=== PATIENT | female | born 1950 | race Caucasian/White ===

== ENCOUNTER 2018-10-03 00:40 | Inpatient (IN) | payer MEDICARE ==
[~2018-10-03] VITALS: Ht 175.3 cm; Wt 108.9 kg
[~2018-10-03 00:40] MED LIST: DULCOLAX5 MG PO; GLUCOPHAGE500 MG PO; LEVAQUIN500 MG PO; MILK OF MAGNESI30 ML PO; NICODERM C1 PATCH .2 TRANSDERM; PERCOCET 10/3251 TA1 PO; REMERON15 MG PO; ZANAFLEX4 MG PO; ZOLOFT50 MG PO
[2018-10-03 02:36] LABS: HEMATOCRIT 37.8 % (36.0-48.0); HEMOGLOBIN 12.5 g/dL (12-16); LYMPHOCYTES 13.8 % (15-50); MCH 28.4 pg (26.0-34.0); MCHC 33.1 g/dL (31.0-37.0); MCV 85.9 fL (80.0-100.0); MEAN PLATELET VOLUME 9.1 fL (7.4-10.4); NEUTROPHILS 80.2 % (40-80); PLATELET COUNT 360 10x3/uL (130-400); RDW 13.8 % (11.5-14.5); WBC 12.1 10x3/uL (4.8-10.8)
[2018-10-03 02:48] LABS: ALBUMIN 2.5 g/dL (3.4-5.0); ALKALINE PHOSPHATASE 79 U/L (46-116); ALT (SGPT) 16 U/L (10-68); BILIRUBIN - TOTAL 0.35 mg/dL (0.2-1.3); CALC OSMOLALITY 282 mosm/kg (275-300); CARBON DIOXIDE 28.9 mmol/L (21.0-32.0); CHLORIDE - SERUM 101 mmol/L (98-107); CREATININE - SERUM 0.7 mg/dL (0.6-1.3); POTASSIUM - SERUM 3.7 mmol/L (3.5-5.1); PROTEIN - SERUM 7.8 g/dL (6.4-8.2); SODIUM 140 mmol/L (136-145); UREA NITROGEN 6 mg/dL (7-18); eGFR NON AFRICAN AMERICAN 88 mL/min (90-120)
[2018-10-03 02:49] LABS: GLUCOSE 212 mg/dL (74-106)
[2018-10-03 02:59] LABS: APPEARANCE CLOUDY (CLEAR); BACTERIA MANY /hpf (NONE SEEN); BILIRUBIN NEGATIVE (NEGATIVE); COLOR YELLOW (YELLOW); EPITHELIAL CELLS NSEEN /hpf (0-5); GLUCOSE NEGATIVE (NEGATIVE); KETONE MODERATE mg/dL (NEGATIVE); NITRITE NEGATIVE (NEGATIVE); PROTEIN 1+ mg/dL (NEGATIVE); SPECIFIC GRAVITY 1.015 (1.005-1.020); UROBILINOGEN NORMAL (NORMAL); WHITE CELLS - URINE >50 /hpf (0-5)
[2018-10-03 04:00] VITALS: BP 135/66
--- NOTE | 2018-10-03 04:00 | NUR ---
RECEIVED PT FROM ER VIA STRETCHER. STAFF X5 TRANSFERRED PT TO BED. PT STATES SHE LIVES ALONE AT HOME AND IS W/C BOUND. ER STAFF REPORTS THAT PT WAS COVERED IN HORSE FECES FROM SEVERAL MINI HORSES IN THE HOUSE. PT DENIES TAKING ANY HOME MEDS. STATES THAT HER WOUNDS HAVE BEEN PRESENT FOR SEVERAL MONTHS AND THAT SHE HAS NOT SEEN A DR. DENIES HAVING PCP. ALERT AND ORIENTED X4. IRRITABLE, DEMANDING AND VERBALLY DISRUPTIVE. CURRENTLY NAUSEATED AND GAGGING. RECEIVED ZOFRAN AND PERCOCET IN ER. RATES PAIN 10 IN RT FOOT AND POSTERIOR THIGH/BUTTOCK AREA. VANCOMYCIN INFUSING IN LT FOREARM. PT SMELLS VERY FOUL. PARMAR CATH PATENT AND DRAINING MARLYS URINE. RT FOOT IS RED, SWOLLEN AND HAS SEROSANGUINOUS FLUID DRAINING FROM ALL TOES. WOUNDS NOTED TO BILAT POST THIGHS AND BUTTOCKS WITH PINK TINGED SCANT DRAINAGE. PT IS MORBIDLY OBESE. NO TELEMETRY AVAILABLE AT THIS TIME. PT IS NPO. V/S STABLE. RESP EVEN AND NONLABORED. REFUSES TO LET STAFF WRAP FOOT. SR ELEVATED X3. CL IN REACH.
[2018-10-03 04:31] VITALS: BP 135/66; BMI 35.5
--- NOTE | 2018-10-03 07:15 | NUR ---
INITIAL ROUNDING ON THE PATIENT, SHE IS SUPINE IN BED, LIGHTS OFF, AWAKE. SHE DENIES PAIN, NO SOB NOTED, PARMAR TO BSG. PATIENT IS UPSET BECAUSE SHE IS THIRSTY AND HUNGRY. PROVIDED THE PATIENT WITH LEMON SWABS AT THIS TIME. FOUL ODOR NOTED IN THE ROOM.
--- NOTE | 2018-10-03 07:55 | NUR ---
THE PATIENT WAS ASSESSED AT THIS TIME. SEVERAL WOUNDS NOTED, RIGHT FOOT, LOWER RIGHT LEG, BILATERAL BUTTOCKS, BILATERAL THIGHS, BACK IS RED IN COLOR, LEFT FOOT. WOUND CARE CONSULT HAS BEEN ORDERED. WOUNDS INCLUDE DARK, NECROTIC APPEARING SKIN, DARK RED/VIERA COLORED AREAS, STAGE 2 PRESSURE SORES (SEVERAL ON BUTTOCKS AND THIGHS), UNSTAGEABLE PRESSURE AREAS. PATIENT REFUSED TO BE REPOSITIONED AT THIS TIME. DURING THE EXPLANATION OF THE CARE PLAN AND ORDERS, SHE STATED "WHY, WHY, WHY..IT IS MY FU..ING TOE AND THEY ARE TAKING IT OFF" AWAITING FOR THE DOCTOR TO MAKE HIS ROUNDS.
[2018-10-03 08:50] VITALS: BP 128/84
[2018-10-03 09:59] LABS: ERYTHROCYTE SEDIMENTATION RATE 82 mm/hr (0-30)
--- NOTE | 2018-10-03 11:32 | NUR ---
CODE MUSCLE CALLED TO TRANSFER THE PATIENT TO THE STRETCHER FOR MRI. PATIENT INSTRUCTED ON THE MRI, AND SHE REPLIES "WHY, I AINT HAVING NO SURGERY, ITS MY TOE AND YOU ARENT TAKING IT"
--- NOTE | 2018-10-03 11:44 | NUR ---
Rehab Note- Acute Inpatient Rehab prescreen order received. The patient has [employer] insurance and will require a PreAuth prior to an inpatient acute rehab stay. Need OT ordered for PreAuth process- spoke with [facility]CI[facility] for order. Will begin PreAuth process. Thank you for this referral! Crystal Saab RN Clinical Liaison, [facility] Rehab
[2018-10-03 12:09] VITALS: BMI 35.4
--- NOTE | 2018-10-03 12:28 | NUR ---
NUTRITION F/U ATTEMPTED TO SPEAK WITH PT RE:DIABETIC DIET. NURSING AWAITING HELP FOR CODE MUSCLE FOR PT. NURSING REPORTS PT "VERY UNHAPPY AT THIS TIME". SUGGESTED RD RETURN AT MORE APPROPRIATE TIME. RD FOLLOWING
[2018-10-03 12:31] VITALS: Ht 175.3 cm; Wt 108.9 kg
--- NOTE | 2018-10-03 19:35 | NUR ---
RECEIVED PT. LYING IN BED SUPINE HOB ELEVATED 45 DEGREES ALERT AND ORIENTED X4. DENIES ANY NEEDS OR PAIN. NO FAMILY AT BEDSIDE NOTED. LEFT FOREARM SL NO REDNESS OR SWELLING, DRESSING C/D/I. CALL LIGHT WITHIN REACH, FALL PRECAUTIONS IN PLACE. WILL CONTINUE TO MONITOR
[2018-10-03 20:17] VITALS: BP 164/68
[2018-10-04 00:42] VITALS: BP 164/78
--- NOTE | 2018-10-04 01:53 | NUR ---
LYING IN BED SUPINE EYES CLOSED RESTING. APPROPRIATE RISE AND FALL OF CHEST. CALL LIGHT WITHIN REACH, FALL PRECAUTIONS IN PLACE. WILL CONTINUE TO MONITOR
--- NOTE | 2018-10-04 02:30 | NUR ---
PT RESTING QUIETLY, EYES CLOSED. NO DISTRESS NOTED. AGREE WITH SLASHER'S ASSESSMENT. CONTINUE WITH PLAN OF CARE.
--- NOTE | 2018-10-04 05:06 | NUR ---
REFUSED MORNING VITALS
--- NOTE | 2018-10-04 06:37 | NUR ---
LYING IN BED SUPINE EYES OPEN ALERT. DENIES ANY NEEDS OR PAIN. RR EVEN AND UNLABORED. CALL LIGHT AND WATER WITHIN REACH, FALL PRECAUTIONS IN PLACE.
--- NOTE | 2018-10-04 07:50 | NUR ---
ASSESSMENT COMPLETE. SL TO L FA. MULTIPLE WOUNDS NOTED TO RIGHT FOOT. PARMAR PATENT DRAINING YELLOW URINE. DENIES ANY NEEDS AT THIS TIME.
[2018-10-04 09:51] LABS: BASOPHILS 0.3 % (0-2); EOSINOPHILS 2.5 % (0-7); HEMATOCRIT 35.4 % (36.0-48.0); HEMOGLOBIN 11.5 g/dL (12-16); IMMATURE GRANULOCYTES 0.9 % (0-5); MCH 28.5 pg (26.0-34.0); MCHC 32.5 g/dL (31.0-37.0); MCV 87.8 fL (80.0-100.0); MEAN PLATELET VOLUME 9.6 fL (7.4-10.4); MONOCYTES 5.7 % (2-11); NEUTROPHILS 62.6 % (40-80); PLATELET COUNT 367 10x3/uL (130-400); RBC 4.03 10x6/uL (4.00-5.40); RDW 14.3 % (11.5-14.5); WBC 9.1 10x3/uL (4.8-10.8)
[2018-10-04 10:35] LABS: ALBUMIN 2.5 g/dL (3.4-5.0); ALKALINE PHOSPHATASE 67 U/L (46-116); ALT (SGPT) 16 U/L (10-68); BILIRUBIN - TOTAL 0.25 mg/dL (0.2-1.3); CALC OSMOLALITY 283 mosm/kg (275-300); CALCIUM 8.9 mg/dL (8.5-10.1); CARBON DIOXIDE 28.5 mmol/L (21.0-32.0); CHLORIDE - SERUM 101 mmol/L (98-107); CREATININE - SERUM 0.7 mg/dL (0.6-1.3); GLUCOSE 217 mg/dL (74-106); MAGNESIUM - SERUM 1.5 mg/dL (1.8-2.4); POTASSIUM - SERUM 3.4 mmol/L (3.5-5.1); PROTEIN - SERUM 7.4 g/dL (6.4-8.2); SODIUM 139 mmol/L (136-145); UREA NITROGEN 9 mg/dL (7-18); eGFR NON AFRICAN AMERICAN 88 mL/min (90-120)
--- NOTE | 2018-10-04 12:00 | NUR ---
WATCHING TV. DENIES ANY NEEDS AT THIS TIME.
--- NOTE | 2018-10-04 15:37 | NUR ---
NO CHANGES NOTED AT THIS TIME.
--- NOTE | 2018-10-04 18:29 | NUR ---
NO CHANGES NOTED AT THIS TIME.
[2018-10-04 18:55] VITALS: BP 160/78
--- NOTE | 2018-10-04 19:15 | NUR ---
PT NOTED SITTING UP ON THE SIDE OF HER BED FINISHING HER SUPPER. ALERT AND ORIENTED X 3. DENIES ACUTE DISCOMFORT AT THIS TIME. LEFT FOREARM SALINE LOCK NOTED. PARMAR CATH IS PATENT AND DRAINING TO A GRAVITY BAG. CONTACT PRECAUTIONS OBSERVED. NO NEEDS VOICED AT THIS TIME. SR'S ARE UP X 2 IN BED. CALL LIGHT AND BEDSIDE TABLE ARE WITHIN EASY REACH.
[2018-10-04 20:00] VITALS: BP 158/67
--- NOTE | 2018-10-04 22:17 | NUR ---
PT IS RESTING QUIETLY IN BED WITH EYES CLOSED. RESPS ARE EVEN AND UNLABORED. NO ACUTE DISTRESS NOTED.
[2018-10-05] VITALS: BP 148/64
--- NOTE | 2018-10-05 01:45 | NUR ---
PT RESTING IN BED WITH EYES CLOSED.
--- NOTE | 2018-10-05 02:05 | NUR ---
I AGREE WITH THE CONTROL ANALYST ASSESSMENT THIS SHIFT.
--- NOTE | 2018-10-05 04:32 | NUR ---
PT RESTING IN BED WITH EYES CLOSED. NO ACUTE DISTRESS NOTED.
--- NOTE | 2018-10-05 08:00 | NUR ---
ASSESSMENT COMPLETE. SL TO L FA WITH SWELLING AND TENDERNESS. SL REMOVED. CATHETER TIP. MULTIPLE WOUNDS NOTED TO RIGHT FOOT. CONTACT ISOLATION PRECAUTIONS IN USE. PARMAR PATENT DRAINING YELLOW URINE. DENIES ANY NEEDS AT THIS TIME.
[2018-10-05 08:58] LABS: BASOPHILS 0.4 % (0-2); EOSINOPHILS 4.8 % (0-7); HEMATOCRIT 38.5 % (36.0-48.0); HEMOGLOBIN 12.2 g/dL (12-16); IMMATURE GRANULOCYTES 0.9 % (0-5); LYMPHOCYTES 25.2 % (15-50); MCH 27.7 pg (26.0-34.0); MCHC 31.7 g/dL (31.0-37.0); MCV 87.3 fL (80.0-100.0); MEAN PLATELET VOLUME 9.7 fL (7.4-10.4); MONOCYTES 6.5 % (2-11); NEUTROPHILS 62.2 % (40-80); PLATELET COUNT 367 10x3/uL (130-400); RBC 4.41 10x6/uL (4.00-5.40); RDW 14.2 % (11.5-14.5); WBC 9.2 10x3/uL (4.8-10.8)
[2018-10-05 09:08] LABS: ALBUMIN 2.5 g/dL (3.4-5.0); ALKALINE PHOSPHATASE 68 U/L (46-116); ALT (SGPT) 20 U/L (10-68); BILIRUBIN - TOTAL 0.29 mg/dL (0.2-1.3); CALC OSMOLALITY 280 mosm/kg (275-300); CHLORIDE - SERUM 103 mmol/L (98-107); CREATININE - SERUM 0.7 mg/dL (0.6-1.3); GLUCOSE 197 mg/dL (74-106); MAGNESIUM - SERUM 1.5 mg/dL (1.8-2.4); POTASSIUM - SERUM 3.5 mmol/L (3.5-5.1); PROTEIN - SERUM 7.6 g/dL (6.4-8.2); SODIUM 139 mmol/L (136-145); UREA NITROGEN 7 mg/dL (7-18); eGFR NON AFRICAN AMERICAN 88 mL/min (90-120)
[2018-10-05 09:10] VITALS: BP 154/88
--- NOTE | 2018-10-05 09:38 | NUR ---
PERCOCET GIVEN FOR COMPLAINT OF PAIN.
--- NOTE | 2018-10-05 09:45 | NUR ---
SL TO L FA WITH SWELLING AND TENDERNESS NOTED. SL RESITED TO R FA WITH 22 GUAGE X 2 ATTEMPTS.
--- NOTE | 2018-10-05 14:00 | NUR ---
VISITING WITH COMPANY. DENIES ANY NEEDS AT THIS TIME.
[2018-10-05 19:35] VITALS: BP 137/66
[2018-10-05 20:23] VITALS: BP 133/62
--- NOTE | 2018-10-05 20:30 | NUR ---
DR TROTTER IN ROOM SPEAKING TO PT.
--- NOTE | 2018-10-05 22:37 | NUR ---
PT RESTING QUIETLY IN BED WITH EYES CLOSED. RESPS ARE EVEN AND UNLABORED. NO ACUTE DISTRESS NOTED.
[2018-10-06] VITALS: BP 170/57
--- NOTE | 2018-10-06 02:57 | NUR ---
I AGREE WITH THE BUSINESS REPRESENTATIVE ASSESSMENT THIS SHIFT.
[2018-10-06 05:51] VITALS: BP 168/75
--- NOTE | 2018-10-06 06:13 | NUR ---
PT RESTING QUIETLY IN BED WITH EYES CLOSED.
[2018-10-06 06:28] LABS: ALBUMIN 2.3 g/dL (3.4-5.0); ALKALINE PHOSPHATASE 57 U/L (46-116); ALT (SGPT) 22 U/L (10-68); BASOPHILS 0.5 % (0-2); BILIRUBIN - TOTAL 0.19 mg/dL (0.2-1.3); CALCIUM 9.1 mg/dL (8.5-10.1); CARBON DIOXIDE 30.4 mmol/L (21.0-32.0); CHLORIDE - SERUM 102 mmol/L (98-107); CREATININE - SERUM 0.7 mg/dL (0.6-1.3); EOSINOPHILS 4.1 % (0-7); GLUCOSE 186 mg/dL (74-106); HEMATOCRIT 34.4 % (36.0-48.0); HEMOGLOBIN 11.1 g/dL (12-16); IMMATURE GRANULOCYTES 0.6 % (0-5); LYMPHOCYTES 20.7 % (15-50); MAGNESIUM - SERUM 1.7 mg/dL (1.8-2.4); MCH 28.2 pg (26.0-34.0); MCHC 32.3 g/dL (31.0-37.0); MCV 87.5 fL (80.0-100.0); MEAN PLATELET VOLUME 9.3 fL (7.4-10.4); MONOCYTES 6.2 % (2-11); NEUTROPHILS 67.9 % (40-80); PLATELET COUNT 348 10x3/uL (130-400); PROTEIN - SERUM 6.9 g/dL (6.4-8.2); RBC 3.93 10x6/uL (4.00-5.40); RDW 14.4 % (11.5-14.5); SODIUM 138 mmol/L (136-145); WBC 8.9 10x3/uL (4.8-10.8); eGFR NON AFRICAN AMERICAN 88 mL/min (90-120)
[2018-10-06 06:29] LABS: CALC OSMOLALITY 279 mosm/kg (275-300); POTASSIUM - SERUM 4.1 mmol/L (3.5-5.1); UREA NITROGEN 9 mg/dL (7-18)
--- NOTE | 2018-10-06 08:37 | NUR ---
AWAKE AND ALERT. ORIENTED X3. NO C/O AT THIS TIME. LUNGS ARE CLEAR BILATERALLY, NO COUGH NOTED. SKIN IS INTACT WITHOUT REDNESS EXCEPT RIGHT FOOT WHICH IS VERY REDDENED AND SWOLLEN. PEDAL PULSE INTACT. SL TO RIGHT FOREARM PATENT WITHOUT REDNESS AT INSERTION SITE. PARMAR PATENT WITH CLEAR YELLOW URINE. CLAMPED AT THIS TIME FOR SPECIMEN COLLECTION. DENIES NEEDS. ATE ALL OF BREAKFAST.
[2018-10-06 08:44] VITALS: BP 147/82
--- NOTE | 2018-10-06 09:30 | NUR ---
REFUSED NICOTINE PATCH. ATE MOST OF BREAKFAST. DENIES NEEDS.
--- NOTE | 2018-10-06 11:00 | NUR ---
Rehab Note- The patient continues to have an acute work up, has a pending Infectious DIsease consult. Being followed closely by Ortho for possible toe amputation. Will continue to follow at this time. Thank you for this referral! Crystal Saab RN CLinical Liaison, [facility] Rehab
--- NOTE | 2018-10-06 12:00 | NUR ---
URINE COLLECTE AND SENT TO LAB. DENIES NEEDS.
--- NOTE | 2018-10-06 12:21 | MORECARE ---
CASE MANAGEMENT DISCHARGE SUMMARY PATIENT: TYLER TOVAR UNIT: [id number] ADM DATE: 10/03/18 AGE: 68 : 51 SEX: F ROOM/BED: D.1213 AUTHOR: GORAN FERMIN PHYSICIAN: REFERRING PHYSICIAN: CYNTHIA MARTINEZ MD DATE OF SERVICE: 10/06/18 Discharge Plan Patient Name: TYLER TOVAR [facility] [facility] 1950 Planned Disposition: Anticipated Discharge Date: Discharge Date: Expected LOS: Initial Reviewer: [email or web address] Initial Review Date: 10/06/2018 Generated: 10/06/18 1:21 pm DCPIA - Discharge Planning Initial Assessment Updated by [email or web address]: Yamilet Grossman on 10/06/18 12:17 pm * Is the patient Alert and Oriented? Yes * PCP NONE * [facility] * Preadmission Environment Home Alone * ADLs Partial Dependent * Partial ADLs (Assistance needed) Ambulation Bathing Dressing Toileting * Equipment Wheelchair * List name and contact numbers for known caregivers / representatives who currently or will assist patient after discharge: CHITO NATION, FRIEND, * Community resources currently utilized None * Additional services required to return to the preadmission environment? Yes * Can the patient safely return to the preadmission environment? No * Has this patient been hospitalized within the prior 30 days at any hospital? No Patient Name: TYLER TOVAR Page [id number] at 1221 All edits/amendments must be made on the electronic document DICTATION DATE: 10/06/18 1221 IT SOFTWARE ENGINEER: NINA 10/06/18 1221 RPT#: [id number] DC DATE: STATUS: ADM IN [facility] [address] [place] [address] END OF REPORT
--- NOTE | 2018-10-06 12:31 | MORECARE ---
CASE MANAGEMENT DISCHARGE SUMMARY PATIENT: TYLER TOVAR UNIT: [id number] ADM DATE: 10/03/18 AGE: 68 : 51 SEX: F ROOM/BED: D.1213 AUTHOR: JENYDOC PHYSICIAN: REFERRING PHYSICIAN: CYNTHIA MARTINEZ MD DATE OF SERVICE: 10/06/18 Discharge Plan Patient Name: TYLER TVOAR Facility: [facility]:[place] : 1950 Planned Disposition: Anticipated Discharge Date: Discharge Date: Expected LOS: Initial Reviewer: [email or web address] Initial Review Date: 10/06/2018 Generated: 10/06/18 1:31 pm Comments DCP- Discharge Planning Updated by [id number]: Yamilet Grossman on 10/06/18 11:[address] Patient Name: TYLER TOVAR Admission Status: ER Accout number: [id number] Admission Date: 10-03-2018 : 1950 Admission Diagnosis:TYPE 2 DIABETES MELLITUS WITH FOOT ULCER Attending: CYNTHIA BOBBY Current LOS: 3 Anticipated DC Date: Planned Disposition: Primary Insurance: [employer] PPO Discharge Planning Comments: CM MET WITH PATIENT ABOUT DC PLANNING/NEEDS. PATIENT IS UNSURE OF DC PLAN. LIVES HOME ALONE, NO FAMILY. HAS A FRIEND NAMED CHITO THAT DOES HER SHOPPING AND OTHER THINGS FOR HER. SHE IS UNABLE TO AMBULATE. USES A WHEELCHAIR AT HOME AND TRANSFERS HERSELF FROM WHEELCHAIR TO CHAIR. THE CHART STATES SHE WILL PROB HAVE SURGERY ON HER FOOT SATURDAY. SHE MAY NEED SNF OR REHAB. AT THIS TIME SHE MAY BE TO LOW FUNCTION FOR IPREHAB. CM WILL FOLLOW AND ASSIST NEEDED WITH DC PLANNING/NEEDS. HOME ENVIRONMENT MAY NOT BE SAFE, RN SAID IT IS EXTREMELY DIRTY. Magnetic Resonance Technologist: Yamilet Grossman DCPIA - Discharge Planning Initial Assessment Updated by [email or web address]: Yamilet Grossman on 10/06/18 12:17 pm * Is the patient Alert and Oriented? Yes * PCP NONE * [facility] * Preadmission Environment Home Alone * ADLs Partial Dependent * Partial ADLs (Assistance needed) Ambulation Bathing Dressing Toileting * Equipment Wheelchair * List name and contact numbers for known caregivers / representatives who currently or will assist patient after discharge: CHITO NATION, FRIEND, * Community resources currently utilized None * Additional services required to return to the preadmission environment? Yes * Can the patient safely return to the preadmission environment? No * Has this patient been hospitalized within the prior 30 days at any hospital? No Last DP export: 10/06/18 11:21 a Patient Name: TYLER TOVAR Page [phone] at 1231 All edits/amendments must be made on the electronic document DICTATION DATE: 10/06/18 1231 COPPING MACHINE OPERATOR: NINA 10/06/18 1231 RPT#: [id number] DC DATE: STATUS: ADM IN [facility] [address] [place] [address] END OF REPORT
--- NOTE | 2018-10-06 12:58 | NUR ---
OT NOTE: PERFORMED BED MOB WITH MAX ASSIST; STATIC SITTING WITH SET UP X 10 MIN; PERFORMED SIT TO STAND WITH WALKER WITH MOD ASSIST X 2 AND ABLE TO STAND WITH WALKER X APPROX 2-3 MIN. MAX ASSIST FOR UE DRESSING AND LE DRESSING. SET UP FOR GROOMING; MOD ASSIST FOR SIT TO SUPINE. PT VERY ANXIOUS REGARDING STANDING TASKS. APPARENTLY PTS PREVIOUS LIVING SITUATION WAS POOR. RADHA YOON, OTR/L
[2018-10-06 13:00] VITALS: BP 138/68
--- NOTE | 2018-10-06 15:46 | NUR ---
Old scars noted on buttocks and hips. Right and left posterior upper thighs have open areas that are red/peeling. Right foot is peeling with edema and redness - necrotic tissue is noted on top of foot. Bruising noted on plantar left foot and great toe. Recommended calmoseptine cream for perineal area and upper thighs. Will continue monitoring.
[2018-10-06 15:57] VITALS: BP 141/72
--- NOTE | 2018-10-06 16:58 | NUR ---
OT NOTE: PT COMPLETED BED MOB WITH MAX Linda. PT COMPLETED GROOMING WITH MOD A. PT COMPLETED UE AAROM. THANK YOU, GILES PACE
[2018-10-06 20:00] VITALS: BP 140/69
--- NOTE | 2018-10-06 21:04 | NUR ---
[facility] IN [facility]ED[facility]
[2018-10-07] VITALS: BP 181/68
--- NOTE | 2018-10-07 00:23 | NUR ---
PATIENT WAS UPSET THAT SHE WAS WOKEN UP FOR MIDNIGHT VITALS AND REQUESTED NOT TO BE WOKEN UP FOR 0400 VITALS
--- NOTE | 2018-10-07 04:08 | NUR ---
[facility]ED[facility]
[2018-10-07 07:27] LABS: BASOPHILS 0.5 % (0-2); EOSINOPHILS 4.2 % (0-7); HEMATOCRIT 33.7 % (36.0-48.0); IMMATURE GRANULOCYTES 0.4 % (0-5); LYMPHOCYTES 17.2 % (15-50); MCH 28.4 pg (26.0-34.0); MCHC 32.6 g/dL (31.0-37.0); MCV 87.1 fL (80.0-100.0); MEAN PLATELET VOLUME 9.8 fL (7.4-10.4); NEUTROPHILS 69.7 % (40-80); PLATELET COUNT 338 10x3/uL (130-400); RBC 3.87 10x6/uL (4.00-5.40); RDW 14.4 % (11.5-14.5); WBC 8.5 10x3/uL (4.8-10.8)
[2018-10-07 07:48] LABS: ALBUMIN 2.3 g/dL (3.4-5.0); ALKALINE PHOSPHATASE 60 U/L (46-116); ALT (SGPT) 23 U/L (10-68); CALC OSMOLALITY 279 mosm/kg (275-300); CALCIUM 8.8 mg/dL (8.5-10.1); CARBON DIOXIDE 27.8 mmol/L (21.0-32.0); CHLORIDE - SERUM 101 mmol/L (98-107); GLUCOSE 161 mg/dL (74-106); MAGNESIUM - SERUM 1.5 mg/dL (1.8-2.4); POTASSIUM - SERUM 3.5 mmol/L (3.5-5.1); SODIUM 140 mmol/L (136-145); UREA NITROGEN 8 mg/dL (7-18); eGFR NON AFRICAN AMERICAN > 90 mL/min (90-120)
[2018-10-07 07:50] LABS: CREATININE - SERUM 0.5 mg/dL (0.6-1.3)
--- NOTE | 2018-10-07 08:59 | NUR ---
PT REFUSED NICOTINE PATCH AT THIS TIME. PT LAYING IN BED, A/O X4, RESP EVEN AND NONLABORD ON RA. PARMAR DRAINING YELLOW URINE TO GRAVITY, EMPTIED 1500CC OF YELLOW URINE AT THIS TIME. RT FA IV INFUSING SL. PT DENIES ANY NEEDS AT THIS TIME. CALL LIGHT IN REACH,NAD NOTED, WILL CONTINUE TO MONITOR.
[2018-10-07 09:01] VITALS: BP 120/78
[2018-10-07 12:08] VITALS: BP 126/69
--- NOTE | 2018-10-07 14:54 | NUR ---
PT'S IV INFILTRATED, D/C IV WITH CATHETER TIP INTACT. PT NEEDS 20G IF FOR CTA, THIS NURSE DID NOT SEE A VEIN TO PLACED 20G. CALLED ANANDA GIFFORD VASCULAR NURSE AND SHE STATED TO CALL SOMEONE ELSE BECAUSE SHE IS GOING TO A MEETING. WILL CALL ICU OR ER TO SEE IF SOMEONE CAN COME START IV.
--- NOTE | 2018-10-07 17:16 | NUR ---
OT NOTE: PT COMPLETED BED MOB WITH MOD A. PT COMPLETED SIT TO STAND WITH MIN TO MOD A. PT COMPLETED BUE AROM AXS. THANK YOU, GILES PACE
--- NOTE | 2018-10-07 17:48 | NUR ---
OT NOTE: PERFORMED BED MOB WITH MOD/MAX ASSIST; UE GROOMING WITH SET UP. TOLERATED SITTING UP ON EDGE OF BED FOR EXT TIME WITHOUT ASSIST. SIT TO STAND WITH USE OF WALKER WITH MIN/MOD ASSIST; ABLE TO TAKE 2 LATERAL STEPS; PRACTICED SCOOTING UP AND OVER ON BED WITH MIN ASSIST FOR SIT TO SUPINE. REQUIRES EXT ENCOURAGEMENT DUE TO FEAR. RADHA YOON, OTR/L
--- NOTE | 2018-10-07 17:57 | NUR ---
CT HERE TO TAKE PT FOR CTA, INSIDE SALES AGENT FLUSHED IV AND STATED THAT PT WAS C/O IV HURTING WHEN BEING FLUSHED. D/C RT HAND IV WITH CATHETER TIP INTACT. WILL CALL ER TO SEE IF THEY CAN START IV.
--- NOTE | 2018-10-07 18:08 | NUR ---
NEW 20G IV STARTED TO RT FA BY ER NURSE. NOTIFIED CT.
--- NOTE | 2018-10-07 18:50 | NUR ---
AWAKE AND ALERT AND ANSWERING MY QUESTIONS ..DENIES PAIN OR NEEDS AT THIS TIME. FAMILY IS AT BEDSIDE BED LOW AND CALL LIGHT IS IN REACH. BED ALARM FUNCTIONING YELLOW GOWN IS ON AND SR X3. LCTA BOWEL SOUNDS X4. CVL TO RT SIDE WITH DRSG INTACT NO EDEMA NO REDNESS ...NOTED IV TO LEFT AC APPEARS ITS BEEN IN PLACE SINCE 09/30 I WILL REMOVE THIS SITE SOON.
--- NOTE | 2018-10-07 19:35 | NUR ---
CONTACT ISOLATION BEING OBSERVED. BED LOW AND CALL LIGHT IN PLACE PATIENT IS NPO FOR PROCEDURE. SR X2 PARMAR IS NOTED NO URINE AT THIS TIME. PT REFUSES TO TURN SO BOTTOM NOT SEEN AT THIS TIME SKIN WARM AND DRY AND LCTA RT FA SL WITH NO EDEMA NO REDNESS
--- NOTE | 2018-10-07 20:01 | NUR ---
PT MOVED BY [facility] FOR CTA
[2018-10-07 20:31] VITALS: BP 139/59
--- NOTE | 2018-10-07 20:47 | NUR ---
NOTIFIED EDUCATION REVIEWER THAT MONITOR HAD BEEN ORDERED 10/03...TOLD IT WOULD NOT BE APLIED
[2018-10-08] VITALS: BP 122/65
--- NOTE | 2018-10-08 08:41 | NUR ---
PT RESTING COMFORTABLY IN BED, EASILY AROUSES TO VOICE. PT REFUSED NICOTINE PATCH. PT A/O X4, RESP EVEN AND NONLABORED ON RA. RT FA IV SL. PT DENIES ANY NEEDS AT THIS TIME. CALL LIGHT IN REACH, NAD NOTED, WILL CONTINUE PLAN OF CARE.
[2018-10-08 09:08] LABS: BASOPHILS 0.3 % (0-2); HEMATOCRIT 34.1 % (36.0-48.0); HEMOGLOBIN 11.1 g/dL (12-16); IMMATURE GRANULOCYTES 0.5 % (0-5); LYMPHOCYTES 12.4 % (15-50); MCH 28.4 pg (26.0-34.0); MCHC 32.6 g/dL (31.0-37.0); MCV 87.2 fL (80.0-100.0); MEAN PLATELET VOLUME 9.5 fL (7.4-10.4); MONOCYTES 7.6 % (2-11); NEUTROPHILS 76.2 % (40-80); PLATELET COUNT 297 10x3/uL (130-400); RBC 3.91 10x6/uL (4.00-5.40); RDW 14.4 % (11.5-14.5); WBC 8.7 10x3/uL (4.8-10.8)
[2018-10-08 09:21] VITALS: BP 133/58
[2018-10-08 09:24] LABS: ALBUMIN 2.4 g/dL (3.4-5.0); ALKALINE PHOSPHATASE 59 U/L (46-116); BILIRUBIN - TOTAL 0.29 mg/dL (0.2-1.3); CALCIUM 8.7 mg/dL (8.5-10.1); CARBON DIOXIDE 29.7 mmol/L (21.0-32.0); CHLORIDE - SERUM 99 mmol/L (98-107); MAGNESIUM - SERUM 1.6 mg/dL (1.8-2.4); POTASSIUM - SERUM 3.7 mmol/L (3.5-5.1); PROTEIN - SERUM 7.2 g/dL (6.4-8.2); SODIUM 135 mmol/L (136-145); UREA NITROGEN 9 mg/dL (7-18)
[2018-10-08 09:25] LABS: ALT (SGPT) 31 U/L (10-68); CALC OSMOLALITY 276 mosm/kg (275-300); CREATININE - SERUM 0.7 mg/dL (0.6-1.3); GLUCOSE 251 mg/dL (74-106); eGFR NON AFRICAN AMERICAN 88 mL/min (90-120)
--- NOTE | 2018-10-08 09:27 | NUR ---
Diabetic diet with 100% intake of meals NPO past MN for surgery Will add Thong to help optimize wound healing Reviewed labs RD following
--- NOTE | 2018-10-08 09:41 | NUR ---
PER PA [place] INFECTION CONTROL, PT CAN COME OFF ISOLATION.
--- NOTE | 2018-10-08 09:52 | NUR ---
Rehab Note- Continue to follow at this time. Has a scheduled amputation of her toe on 10/09/18. Will submit clinicals to [facility] when medically stable. Crystal Saab RN Clinical Liaison, [facility] Rehab
[2018-10-08 13:59] VITALS: BP 142/56
--- NOTE | 2018-10-08 15:28 | NUR ---
OT NOTE: PT REFUSED THERAPY IN AM. PT WAS VERY AGITATED AND RUDE. INFORMED PT THAT WE WOULD ATTEMPT IN PM.. SHE STATED " DO NOT COME BACK; I WILL REFUSE THIS AFTERNOON; IM NOT MOVING !!!" RADHA YOON, OTR/L
[2018-10-08 17:03] VITALS: BP 150/65
--- NOTE | 2018-10-08 19:35 | NUR ---
AT REST IN BED SR X2 AND BED LOW CONSENTS HAVE BEEN SIGNED FOR AMPUTATION IN AM PT TO BE NPO FOLY WITH MARLYS URINE SL TO RT FORARM WNL CALL LIGHT IN PLACE AND DENIES NEEDS AT THIS TIME
[2018-10-08 22:35] VITALS: BP 172/80
--- NOTE | 2018-10-09 02:23 | NUR ---
DISCOVERED IV INFILTRATED...RESTARTED WITH 20 GAUGE TO LEFT FORARM TIMES ONE TRY
[2018-10-09 02:35] VITALS: BP 157/70
--- NOTE | 2018-10-09 03:38 | NUR ---
I AGREE WITH CHECKING CLERK ASSESSMENT
[2018-10-09 05:46] VITALS: BP 173/71
--- NOTE | 2018-10-09 08:00 | NUR ---
The patient is calm and awake, on assessment she says she has a h/a. She does c/o h/a and she requests a cold wash cloth, did apply. She also has some expiratory wheezes.
[2018-10-09 10:11] VITALS: BP 163/69
--- NOTE | 2018-10-09 11:37 | NUR ---
Did have the patient sign consents for surgery.
--- NOTE | 2018-10-09 13:13 | NUR ---
The surgery called and requested the patient be preop'd Did provide the patient her preop meds, see MAR.
--- NOTE | 2018-10-09 13:40 | NUR ---
The refresh technician here to take the patient to surgery, she is is glad to be going.
[2018-10-09 14:35] VITALS: BP 132/71
--- NOTE | 2018-10-09 15:35 | NUR ---
The patient is back from recovery. VSS. SHe requested soup and sandwich she has been NPO.
--- NOTE | 2018-10-09 16:30 | NUR ---
The patient requested to sit up on the side of the bed, did assist her. She did well, slow, but she needed minimal assist. She did mention that her trapeze bar is missing. It may be in surgery.
--- NOTE | 2018-10-09 17:30 | NUR ---
The patient got a tray with a sandwich and she requested cheese. Did put in an order.
[2018-10-09 17:42] VITALS: BP 136/71
[2018-10-09 18:09] LABS: AEROBE ID Final report (())
--- NOTE | 2018-10-09 19:50 | NUR ---
AWAKE AND ALERT TECH SEEING TO NEEDS LUNG SOUNDS DEMINISHED AT THIS TIME. BANDAGE IN PLACE OVER RT FOOT/TOES PULSE PAPABLE NO DRAINAGE THROUGH DRSG. IV TO LEFT ARM SL AT THIS TIME
[2018-10-09 20:00] VITALS: BP 136/62
[2018-10-10] VITALS: BP 117/63; BP 146/66
--- NOTE | 2018-10-10 02:57 | NUR ---
ASSESSED, PT IS AWAKE AND WATCHING TV. DRESSING TO FOOT IS DRY AND INTACT. RESPIRATIONS ARE EASY AND UNLABORED. NO DISTRESS NOTED.
[2018-10-10 04:00] VITALS: BP 150/64
[2018-10-10 06:50] LABS: BASOPHILS 0.4 % (0-2); EOSINOPHILS 4.6 % (0-7); HEMATOCRIT 34.5 % (36.0-48.0); HEMOGLOBIN 10.9 g/dL (12-16); IMMATURE GRANULOCYTES 0.4 % (0-5); LYMPHOCYTES 19.2 % (15-50); MCH 27.9 pg (26.0-34.0); MCHC 31.6 g/dL (31.0-37.0); MCV 88.2 fL (80.0-100.0); MEAN PLATELET VOLUME 9.7 fL (7.4-10.4); NEUTROPHILS 66.4 % (40-80); PLATELET COUNT 297 10x3/uL (130-400); RBC 3.91 10x6/uL (4.00-5.40); RDW 14.6 % (11.5-14.5); WBC 7.8 10x3/uL (4.8-10.8)
[2018-10-10 07:24] LABS: CALCIUM 8.6 mg/dL (8.5-10.1); CARBON DIOXIDE 30.3 mmol/L (21.0-32.0); CHLORIDE - SERUM 99 mmol/L (98-107); CREATININE - SERUM 0.7 mg/dL (0.6-1.3); POTASSIUM - SERUM 3.9 mmol/L (3.5-5.1); SODIUM 136 mmol/L (136-145); eGFR NON AFRICAN AMERICAN 88 mL/min (90-120)
[2018-10-10 07:31] LABS: GLUCOSE 192 mg/dL (74-106)
[2018-10-10 07:48] LABS: CALC OSMOLALITY 277 mosm/kg (275-300)
[2018-10-10 07:49] LABS: UREA NITROGEN 14 mg/dL (7-18)
--- NOTE | 2018-10-10 07:55 | NUR ---
ASSESSMENT COMPLETE. SL TO L FA. DRESSING TO RIGHT FOOT C/D/I. PARMAR PATENT DRAINING YELLOW URINE. DENIES ANY NEEDS AT THIS TIME.
[2018-10-10 08:00] VITALS: BP 179/67
--- NOTE | 2018-10-10 10:46 | NUR ---
Nutrition Consult/Follow Up: Consult received for ADA diet education. When RD knocked on the door, pt yelled "What?!" RD entered the room, introduced myself and explained why I was there. Pt stated that she was trying to take a nap. RD offered to leave written material with pt and she said yes. RD encouraged pt to contact RD with any nutritional questions/concerns. Diet: Regular PO Intake: 100% meal avg BM: 10/07/18 Labs reviewed - Glucose continues elevated; A1C 9.9 Meds noted including Humulin POD 1 Toe Amputation Will change diet to ADA to aid in glucose control. Will continue to honor food preferences. RD following.
--- NOTE | 2018-10-10 11:22 | NUR ---
PERCOCET GIVEN FOR COMPLAINT OF PAIN.
[2018-10-10 13:17] VITALS: BP 158/70
--- NOTE | 2018-10-10 14:04 | MORECARE ---
CASE MANAGEMENT DISCHARGE SUMMARY PATIENT: TYLER TOVAR UNIT: [id number] ADM DATE: 10/03/18 AGE: 68 : 51 SEX: F ROOM/BED: D.1213 AUTHOR: GORAN FERMIN PHYSICIAN: REFERRING PHYSICIAN: CYNTHIA MARTINEZ MD DATE OF SERVICE: 10/10/18 Discharge Plan Patient Name: TYLER TOVAR Facility: [facility]:[place] : 1950 Planned Disposition: Anticipated Discharge Date: Discharge Date: Expected LOS: Initial Reviewer: [email or web address] Initial Review Date: 10/06/2018 Generated: 10/10/18 3:04 pm Comments DCP- Discharge Planning Updated by [email or web address]: Yamilet Grossman on 10/10/18 12:[address] Patient Name: TYLER TOVAR Admission Status: ER Accout number: [id number] Admission Date: 10-03-2018 : 1950 Admission Diagnosis:TYPE 2 DIABETES MELLITUS WITH FOOT ULCER Attending: CYNTHIA BOBBY Current LOS: 7 Anticipated DC Date: Planned Disposition: Primary Insurance: [employer] CHOICE PPO MCR ADVANT Discharge Planning Comments: PATIENT WANTS [facility] WILL SUBMIT CLINICALS TO [facility] WHEN PATIENT IS MEDICALLY STABLE. Jewelry Repairer: Yamilet Grossman DCP- Discharge Planning Updated by [id number]: Yamilet Grossman on 10/06/18 11:[address] Patient Name: TYLER TOVAR Admission Status: ER Accout number: [id number] Admission Date: 10-03-2018 : 1950 Admission Diagnosis:TYPE 2 DIABETES MELLITUS WITH FOOT ULCER Attending: CYNTHIA BOBBY Current LOS: 3 Anticipated DC Date: Planned Disposition: Primary Insurance: [employer] PPO Discharge Planning Comments: CM MET WITH PATIENT ABOUT DC PLANNING/NEEDS. PATIENT IS UNSURE OF DC PLAN. LIVES HOME ALONE, NO FAMILY. HAS A FRIEND NAMED CHITO THAT DOES HER SHOPPING AND OTHER THINGS FOR HER. SHE IS UNABLE TO AMBULATE. USES A WHEELCHAIR AT HOME AND TRANSFERS HERSELF FROM WHEELCHAIR TO CHAIR. THE CHART STATES SHE WILL PROB HAVE SURGERY ON HER FOOT SATURDAY. SHE MAY NEED SNF OR REHAB. AT THIS TIME SHE MAY BE TO LOW FUNCTION FOR IPREHAB. CM WILL FOLLOW AND ASSIST NEEDED WITH DC PLANNING/NEEDS. HOME ENVIRONMENT MAY NOT BE SAFE, RN SAID IT IS EXTREMELY DIRTY. Jewelry Repairer: Yamilet Grossman DCPIA - Discharge Planning Initial Assessment Updated by [email or web address]: Yamilet Grossman on 10/06/18 12:17 pm * Is the patient Alert and Oriented? Yes * PCP NONE * [facility] * Preadmission Environment Home Alone * ADLs Partial Dependent * Partial ADLs (Assistance needed) Ambulation Bathing Dressing Toileting * Equipment Wheelchair * List name and contact numbers for known caregivers / representatives who currently or will assist patient after discharge: CHITO NATION, FRIEND, * Community resources currently utilized None * Additional services required to return to the preadmission environment? Yes * Can the patient safely return to the preadmission environment? No * Has this patient been hospitalized within the prior 30 days at any hospital? No Last DP export: 10/06/18 11:31 a Patient Name: TYLER TOVAR Page [phone] at 1404 All edits/amendments must be made on the electronic document DICTATION DATE: 10/10/18 1403 LEAD HOUSEKEEPER: NINA 10/10/18 1403 RPT#: [id number] DC DATE: STATUS: ADM IN [facility] [address] [place] [address] END OF REPORT
--- NOTE | 2018-10-10 15:00 | NUR ---
RESTING QUIETLY IN BED. DENIES ANY NEEDS AT THIS TIME.
--- NOTE | 2018-10-10 17:20 | NUR ---
VISITING WITH FRIEND. SOPHY GIVEN FOR COMPLAINT OF HEADACHE.
[2018-10-10 17:21] VITALS: BP 141/60
[2018-10-10 20:00] VITALS: BP 165/81
--- NOTE | 2018-10-10 20:01 | NUR ---
PT SITTING UP ON THE SIDE OF THE BED EATING DINNER. PT DENIES [place] PAIN OR NEEDS AT THIS TIME. BED LOW CALL LIGHT WITHIN REACH. BANDAGE TO RIGHT FOOT C/D/I. WILL CONTINUE TO MONITOR.
--- NOTE | 2018-10-11 03:03 | NUR ---
ASSESSED, PT IS ASLEEP WITH EASY RESPIRATIONS AND NO DISTESS NOTED. BED IS LOW, RAILS UP X'S 2 WITH THE CALL LIAHGT AT HAND.
[2018-10-11 04:00] VITALS: BP 136/70
--- NOTE | 2018-10-11 05:06 | NUR ---
PT RESTING COMFORTABLY IN BED. RR EVEN AND UNLABORED. NO S/S OF DISTRESS. BED LOW CALL LIGHT WITHIN REACH. WILL CONTINUE TO MONITOR.
--- NOTE | 2018-10-11 05:47 | NUR ---
PT LAYING FLAT IN BED. RR EVEN AND UNLABORED. PT ON 2LNC. PT COMPLAINS OF 8/10 PAIN IN HEAD AND 6/10 PAIN IN FOOT. PRN PAIN MEDICATION GIVEN. BED LOW CALL LIGHT WITHIN REACH. WILL CONTINUE TO MONITOR.
[2018-10-11 07:10] LABS: BASOPHILS 0.5 % (0-2); EOSINOPHILS 5.5 % (0-7); HEMATOCRIT 33.4 % (36.0-48.0); HEMOGLOBIN 10.6 g/dL (12-16); IMMATURE GRANULOCYTES 0.2 % (0-5); LYMPHOCYTES 25.9 % (15-50); MCH 27.9 pg (26.0-34.0); MCHC 31.7 g/dL (31.0-37.0); MCV 87.9 fL (80.0-100.0); MEAN PLATELET VOLUME 9.8 fL (7.4-10.4); MONOCYTES 8.9 % (2-11); PLATELET COUNT 301 10x3/uL (130-400); RDW 14.5 % (11.5-14.5); WBC 8.7 10x3/uL (4.8-10.8)
[2018-10-11 07:51] LABS: CALC OSMOLALITY 273 mosm/kg (275-300); CALCIUM 8.5 mg/dL (8.5-10.1); CARBON DIOXIDE 30.1 mmol/L (21.0-32.0); CHLORIDE - SERUM 99 mmol/L (98-107); CREATININE - SERUM 0.7 mg/dL (0.6-1.3); GLUCOSE 160 mg/dL (74-106); SODIUM 136 mmol/L (136-145); UREA NITROGEN 11 mg/dL (7-18); eGFR NON AFRICAN AMERICAN 88 mL/min (90-120)
[2018-10-11 07:58] VITALS: BP 122/61
--- NOTE | 2018-10-11 08:11 | NUR ---
AM ROUNDS COMPLETED. VSS, AAOX3, NO S/S OF DISTRESS, RR EVEN AND UNLABORED. PT DENIES ANY FURTHER NEEDS. STATES SHE WILL LIKE TO REST, BECAUSE SHE COULD NOT SLEEP LAST NIGHT. WILL CPOC. CL IN REACH, BED IN LOW, SR UP X2.
[2018-10-11 13:34] VITALS: BP 155/71
--- NOTE | 2018-10-11 14:20 | NUR ---
PT C/O SOB, THAT SHE IS FINDING IT DIFFICULT TO GET AIR. ELEVATED PT HEAD UP IN BED, PUT PT ON 3L OF OXYGEN. ASSESED PT O2 SAT. PT CURRENTLY 96 ON 2L. AT THIS TIME PT STATES SHE IS FEELING A LITTLE BETTER. WILL CTM, IN REACH, BED IN LOW, SR UP X2.
--- NOTE | 2018-10-11 15:00 | NUR ---
PT STATES SHE IS BREATHING A LOT BETTER NOW. WILL CPOC. CL IN REACH, BED IN LOW.
[2018-10-11 16:00] VITALS: BP 136/70
--- NOTE | 2018-10-11 19:30 | NUR ---
PT LAYING IN BED RR EVEN AND UNLABORED. PT ON 2L NC. NO S/S OF DISTRESS. PT DENIES ANY PAIN OR NEEDS AT THIS TIME. BED LOW CALL LIGHT WITHIN REACH. WILL CONTINUE TO MONITOR.
--- NOTE | 2018-10-12 00:52 | NUR ---
PT RESTING IN BED WITH EYES CLOSED. RR EVEN AND UNLABORED. NO S/S OF DISTRESS. BED LOW CALL LIGHT WITHIN REACH. WILL CONTINUE TO MONITOR.
--- NOTE | 2018-10-12 02:27 | NUR ---
I AGREE WITH MAGNETIC PROSPECTING SUPERVISOR ASSESSMENT THIS SHIFT.
[2018-10-12 06:11] VITALS: BP 152/71
[2018-10-12 07:04] LABS: BASOPHILS 0.5 % (0-2); EOSINOPHILS 4.4 % (0-7); HEMATOCRIT 33.7 % (36.0-48.0); HEMOGLOBIN 10.8 g/dL (12-16); IMMATURE GRANULOCYTES 0.4 % (0-5); LYMPHOCYTES 27.3 % (15-50); MCH 28.2 pg (26.0-34.0); MEAN PLATELET VOLUME 9.6 fL (7.4-10.4); MONOCYTES 7.7 % (2-11); NEUTROPHILS 59.7 % (40-80); PLATELET COUNT 279 10x3/uL (130-400); RBC 3.83 10x6/uL (4.00-5.40); RDW 14.6 % (11.5-14.5); WBC 9.9 10x3/uL (4.8-10.8)
[2018-10-12 07:58] LABS: CALC OSMOLALITY 279 mosm/kg (275-300); CALCIUM 8.5 mg/dL (8.5-10.1); CARBON DIOXIDE 27.4 mmol/L (21.0-32.0); CHLORIDE - SERUM 102 mmol/L (98-107); CREATININE - SERUM 0.6 mg/dL (0.6-1.3); GLUCOSE 183 mg/dL (74-106); POTASSIUM - SERUM 3.9 mmol/L (3.5-5.1); SODIUM 138 mmol/L (136-145); UREA NITROGEN 9 mg/dL (7-18); eGFR NON AFRICAN AMERICAN > 90 mL/min (90-120)
--- NOTE | 2018-10-12 08:08 | NUR ---
RESTING QUIETLY IN BED, EYES CLOSED, AROUSES TO VERBAL STIMULI, DENIES PAIN, CALL LIGHT AT HAND, INSTRUCTED TO CALL WITH NEEDS.
[2018-10-12 08:51] VITALS: BP 138/73
[2018-10-12 13:34] VITALS: BP 120/78
[2018-10-12 18:35] VITALS: BP 128/78
[2018-10-12 20:00] VITALS: BP 145/71
--- NOTE | 2018-10-12 20:01 | NUR ---
PATIENT RESTING IN BED WTIH NO S/S OF DISTRESS AND REQUESTED A SNACK WITH NIGHT MEDS. PATIENT DENIES OTHER NEEDS AT THIS TIME. BED IN LOWEST POSITION AND CALL LIGHT WITHIN REACH. ENCOURAGED THE PATIENT TO CALL IF SHE HAS NEEDS. WILL CONTINUE TO MONITOR.
--- NOTE | 2018-10-12 22:15 | NUR ---
PATIENT RESTING IN BED WITH NO S/S OF DISTRESS. ADMINISTERED MEDS PER ORDERS. PATIENT DENIES OTHER NEEDS AT THIS TIME. BED IN LOWEST POSITION AND CALL LIGHT WITHIN REACH. ENCOURAGED THE PATIENT TO CALL IF SHE HAS NEEDS. WILL CONTINUE TO MONITOR.
[2018-10-13] VITALS: BP 145/67; BP 148/69
[2018-10-13 04:00] VITALS: BP 151/64
[2018-10-13 07:33] LABS: BASOPHILS 0.3 % (0-2); EOSINOPHILS 4.1 % (0-7); HEMATOCRIT 33.5 % (36.0-48.0); HEMOGLOBIN 10.6 g/dL (12-16); IMMATURE GRANULOCYTES 0.3 % (0-5); LYMPHOCYTES 23.6 % (15-50); MCH 27.7 pg (26.0-34.0); MCHC 31.6 g/dL (31.0-37.0); MCV 87.5 fL (80.0-100.0); MEAN PLATELET VOLUME 9.6 fL (7.4-10.4); MONOCYTES 5.9 % (2-11); NEUTROPHILS 65.8 % (40-80); PLATELET COUNT 300 10x3/uL (130-400); RBC 3.83 10x6/uL (4.00-5.40); RDW 14.3 % (11.5-14.5); WBC 8.6 10x3/uL (4.8-10.8)
[2018-10-13 07:46] VITALS: BP 163/54
[2018-10-13 08:48] LABS: CALC OSMOLALITY 287 mosm/kg (275-300); CALCIUM 8.3 mg/dL (8.5-10.1); CHLORIDE - SERUM 103 mmol/L (98-107); CREATININE - SERUM 0.5 mg/dL (0.6-1.3); GLUCOSE 207 mg/dL (74-106); POTASSIUM - SERUM 3.7 mmol/L (3.5-5.1); SODIUM 142 mmol/L (136-145); UREA NITROGEN 10 mg/dL (7-18); eGFR NON AFRICAN AMERICAN > 90 mL/min (90-120)
--- NOTE | 2018-10-13 10:04 | OP ---
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 POSTOPERATIVE DIAGNOSIS: Ischemic necrosis of the right great toe. PROCEDURE: IP amputation of the right great toe. SURGEON: Cisco Song MD CERAMIC COATER: Kin Camarena ANESTHESIA: General. INTRAOPERATIVE COMPLICATIONS: None. SUMMARY OF PATHOLOGIC FINDINGS: The patient did have enough viable skin after the prep that I felt like her toe was salvageable at the IP joint and maintain her MTP joint. OPERATIVE SUMMARY IN DETAIL: After obtaining the appropriate preoperative orthopedic surgery consent as well as anesthetic consultation, evaluation, and clearance, the patient was brought to the operating room and placed on the operating table in the supine position. After general laryngeal mask was administered, tourniquet was placed about the proximal aspect of the right calf. The right lower extremity was then prepped and draped in routine sterile fashion. The tourniquet was deflated without exsanguination given the infectious nature. The toe was examined and a fishmouth-style incision was made just at the IP joint of the great toe. It was then disarticulated at the IP joint. Small sagittal saw was used then to saw off the condyles of the proximal phalanx of the great toe. This was then copiously irrigated and 2 very good viable-appearing vascular flaps were reapproximated with 3-0 Prolene. The area was locally infiltrated with 0.25% Marcaine plain. Sterile dressings were applied. Tourniquet was deflated. The patient was awakened and taken to the recovery room in stable condition. All final needle and sponge counts were correct. TRANSINT:[id number] Voice Confirmation ID: [id number] DOCUMENT ID: [id number] CISCO SONG MD at 1004 CC: [id number] DICTATION DATE: 10/09/18 1451 WIRE FENCE ERECTOR: 10/09/18 191 ADM IN [facility] [address] [place] [address]
--- NOTE | 2018-10-13 10:56 | NUR ---
Rehab Note- The patient has [employer] Insurance and will require a PreAuth, the patient has been noted to be refusing therapy- the patient would have to participate in the required 3hrs/day of therapy in the acute inpatient rehab, therefore [employer] will deny the patient an inpatient acute rehab stay. Thank you for this referral! Crystal Saab RN CLinical Liaison, [facility]
--- NOTE | 2018-10-13 11:27 | NUR ---
ALERT AND ORIENTED X4. RESTING IN BED. REQUEST PAIN PILL. INFORM PATIENT NO PAIN MEDICATIONS ON CHART. CALL ASHER FRANCIS FOR PAIN MEDICATION.
--- NOTE | 2018-10-13 12:26 | MORECARE ---
CASE MANAGEMENT DISCHARGE SUMMARY PATIENT: TYLER TOVAR UNIT: [id number] ADM DATE: 10/03/18 AGE: 68 : 51 SEX: F ROOM/BED: D.1213 AUTHOR: JENYDOC PHYSICIAN: REFERRING PHYSICIAN: CYNTHIA MARTINEZ MD DATE OF SERVICE: 10/13/18 Discharge Plan Patient Name: TYLER TOVAR Facility: [facility]:[place] : 1950 Planned Disposition: Anticipated Discharge Date: Discharge Date: Expected LOS: Initial Reviewer: [id number] Initial Review Date: 10/06/2018 Generated: 10/13/18 1:26 pm Comments DCP- Discharge Planning Updated by [id number]: Lizett Forrester on 10/13/18 11:[address] CM RECEIVED TC AT 1058 FROM [facility]/ REHAB. PATIENT IS NOT PARTICIPATING WITH PHYSICAL THERAPY. PREAUTH UNLIKELY WITH HER INSURER DUE TO NONPARTICIPATION. TC TO PHYSICAL THERAPY TO DISCUSS PATIENT PROGRESS. WILL ALSO VISIT WITH THE PATIENT. ASHER HANSON, WITH DR SONG CALLED THIS AM STATING NURSING STAFF CAN START DAILY DRESSING CHANGES. DCP- Discharge Planning Updated by [id number]: Yamilet Grossman on 10/10/18 12:[address] Patient Name: TYLER TOVAR Admission Status: ER Accout number: [id number] Admission Date: 10-03-2018 : 1950 Admission Diagnosis:TYPE 2 DIABETES MELLITUS WITH FOOT ULCER Attending: CYNTHIA BOBBY Current LOS: 7 Anticipated DC Date: Planned Disposition: Primary Insurance: [employer] CHOICE PPO MCR ADVANT Discharge Planning Comments: PATIENT WANTS [facility] WILL SUBMIT CLINICALS TO [facility] WHEN PATIENT IS MEDICALLY STABLE. Hospital Orderly: Yamilet Grossman DCP- Discharge Planning Updated by [id number]: Yamilet Grossman on 10/06/18 11:[address] Patient Name: TYLER TOVAR Admission Status: ER Accout number: [id number] Admission Date: 10-03-2018 : 1950 Admission Diagnosis:TYPE 2 DIABETES MELLITUS WITH FOOT ULCER Attending: CYNTHIA BOBBY Current LOS: 3 Anticipated DC Date: Planned Disposition: Primary Insurance: [employer]ICEC[employer] PPO Discharge Planning Comments: CM MET WITH PATIENT ABOUT DC PLANNING/NEEDS. PATIENT IS UNSURE OF DC PLAN. LIVES HOME ALONE, NO FAMILY. HAS A FRIEND NAMED CHITO THAT DOES HER SHOPPING AND OTHER THINGS FOR HER. SHE IS UNABLE TO AMBULATE. USES A WHEELCHAIR AT HOME AND TRANSFERS HERSELF FROM WHEELCHAIR TO CHAIR. THE CHART STATES SHE WILL PROB HAVE SURGERY ON HER FOOT SATURDAY. SHE MAY NEED SNF OR REHAB. AT THIS TIME SHE MAY BE TO LOW FUNCTION FOR IPREHAB. CM WILL FOLLOW AND ASSIST NEEDED WITH DC PLANNING/NEEDS. HOME ENVIRONMENT MAY NOT BE SAFE, RN SAID IT IS EXTREMELY DIRTY. Hospital Orderly: Yamilet Grossman DCPIA - Discharge Planning Initial Assessment Updated by [id number]: Yamilet Grossman on 10/06/18 12:17 pm * Is the patient Alert and Oriented? Yes * PCP NONE * [facility] * Preadmission Environment Home Alone * ADLs Partial Dependent * Partial ADLs (Assistance needed) Ambulation Bathing Dressing Toileting * Equipment Wheelchair * List name and contact numbers for known caregivers / representatives who currently or will assist patient after discharge: CHITO NATION, FRIEND, * Community resources currently utilized None * Additional services required to return to the preadmission environment? Yes * Can the patient safely return to the preadmission environment? No * Has this patient been hospitalized within the prior 30 days at any hospital? No Last DP export: 10/10/18 1:04 pm Patient Name: TYLER TOVAR Page [id number] at 1226 All edits/amendments must be made on the electronic document DICTATION DATE: 10/13/18 1226 SUPERVISOR ADULT EDUCATION: NINA 10/13/18 1226 RPT#: [id number] DC DATE: STATUS: ADM IN [facility] [address] [place] [address] END OF REPORT
--- NOTE | 2018-10-13 14:12 | NUR ---
OT NOTE: PT LIEING FLAT IN BED. ENTERED ROOM WITH PHYS THERAPY AND EXPLAINED TO PT WHO WE WERE. PT HAS BEEN AGITATED ON LAST SEVERAL ATTEMPTS OF O.T. AND PT HAS REFUSED TMT SEVERAL DAYS LAST WEEK. TODAY, ASKED THAT PT ATTEMPT TO GET UP TO EDGE OF BED TO PREVENT FURTHER BED SORES. PT ANGRILY AND RELUCTANTLY AGREED TO THIS. MIN ASSIST FOR SUPINE TO SIT; MOD ASSIST WITH 2 PEOPLE FOR SIT TO STAND SO THAT LINENS COULD BE CHANGED. STRONGLY ENCOURAGED PT TO TRANSFER TO CHAIR BUT SHE REFUSED. BACK TO BED WITH MIN ASSIST. CONTINUAL COMPLAINTS FROM PT REGARDING BEING WOKEN UP WHEN SHE ATTEMPTS TO SLEEP; EVERYONE TELLING HER WHAT TO DO, ETC. EXPLAINED TO PT THAT SHE COULD RETURN HOME WHEN SHE WAS ABLE TO DEMONSTRATE THAT SHE COULD TRANSFER FROM BED TO CHAIR AND BACK. MUCH RESISTANCE FROM PT FOLLOWING THIS INFORMATION. PT COULD DO VERY WELL FOR HERSELF IF SHE WAS MOTIVATED. SHE COULD TAKE A FEW STEPS, TRANSFER, SIT UP IN CHAIR VS BED ALL DAY...HOWEVER, SHE IS POORLY MOTIVATED TO DO ANYTHING EXCEPT STAY IN BED. ATTEMPTS TO ENCOURAGE AND EDUCATE PT BUT SHE HAS NO INTEREST IN HEARING THIS. RADHA YOON, OTR/L
[2018-10-13 15:45] VITALS: BP 165/72
--- NOTE | 2018-10-13 19:40 | NUR ---
RESUMING CARE. PT LAYING IN BED A&O X4 BREATH SOUNDS EVEN M IV IN LFT FA GHULAM IVAN IN DRAINING YELLOW , DRSGING TO RE FOOT C/D/I , NO C/O PAIN OR DISTRESS AT THIS TIME CL IN REACH WILL CONT TO PAIGE
[2018-10-13 20:00] VITALS: BP 144/65
[2018-10-14 06:18] VITALS: BP 150/83
[2018-10-14 07:21] LABS: BASOPHILS 0.5 % (0-2); EOSINOPHILS 5.4 % (0-7); HEMOGLOBIN 10.1 g/dL (12-16); IMMATURE GRANULOCYTES 0.4 % (0-5); MCH 27.7 pg (26.0-34.0); MCHC 31.6 g/dL (31.0-37.0); MCV 87.7 fL (80.0-100.0); MEAN PLATELET VOLUME 9.9 fL (7.4-10.4); MONOCYTES 6.7 % (2-11); PLATELET COUNT 343 10x3/uL (130-400); RBC 3.65 10x6/uL (4.00-5.40); RDW 14.4 % (11.5-14.5); WBC 8.1 10x3/uL (4.8-10.8)
[2018-10-14 07:38] LABS: CALCIUM 8.4 mg/dL (8.5-10.1); CHLORIDE - SERUM 102 mmol/L (98-107); GLUCOSE 164 mg/dL (74-106); POTASSIUM - SERUM 3.7 mmol/L (3.5-5.1); SODIUM 141 mmol/L (136-145); eGFR NON AFRICAN AMERICAN 88 mL/min (90-120)
[2018-10-14 07:40] LABS: CALC OSMOLALITY 284 mosm/kg (275-300); CREATININE - SERUM 0.7 mg/dL (0.6-1.3); UREA NITROGEN 13 mg/dL (7-18)
[2018-10-14 07:59] VITALS: BP 124/64
--- NOTE | 2018-10-14 09:06 | MORECARE ---
CASE MANAGEMENT DISCHARGE SUMMARY PATIENT: TYLER TOVAR UNIT: [id number] ADM DATE: 10/03/18 AGE: 68 : 51 SEX: F ROOM/BED: D.1213 AUTHOR: JENYDOC PHYSICIAN: REFERRING PHYSICIAN: CYNTHIA MARTINEZ MD DATE OF SERVICE: 10/14/18 Discharge Plan Patient Name: TYLER TOVAR Facility: [facility]:[place] : 1950 Planned Disposition: Anticipated Discharge Date: Discharge Date: Expected LOS: Initial Reviewer: [email or web address] Initial Review Date: 10/06/2018 Generated: 10/14/18 10:05 am Comments DCP- Discharge Planning Updated by [id number]: Yamilet Grossman on 10/14/18 8:[address] Patient Name: TYLER TOVAR Admission Status: ER Accout number: [id number] Admission Date: 10-03-2018 : 1950 Admission Diagnosis:TYPE 2 DIABETES MELLITUS WITH FOOT ULCER Attending: CYNTHIA BOBBY Current LOS: 11 Anticipated DC Date: Planned Disposition: Primary Insurance: [employer] CHOICE PPO MCR ADVANT Discharge Planning Comments: CM WILL MEET WITH PATIENT TODAY AND BEGIN THE PROCESS OF SNF IF PATIENT WILL AGREE. Office Support Associate: Yamilet Grossman DCP- Discharge Planning Updated by [id number]: Lizett Forrester on 10/13/18 11:[address] CM RECEIVED TC AT 1058 FROM [facility]. PATIENT IS NOT PARTICIPATING WITH PHYSICAL THERAPY. PREAUTH UNLIKELY WITH HER INSURER DUE TO NONPARTICIPATION. TC TO PHYSICAL THERAPY TO DISCUSS PATIENT PROGRESS. WILL ALSO VISIT WITH THE PATIENT. ASHER HANSON, WITH DR SONG CALLED THIS AM STATING NURSING STAFF CAN START DAILY DRESSING CHANGES. DCP- Discharge Planning Updated by [email or web address]: Yamilet Grossman on 10/10/18 12:[address] Patient Name: TYLER TOVAR Admission Status: ER Accout number: [id number] Admission Date: 10-03-2018 : 1950 Admission Diagnosis:TYPE 2 DIABETES MELLITUS WITH FOOT ULCER Attending: CYNTHIA BOBBY Current LOS: 7 Anticipated DC Date: Planned Disposition: Primary Insurance: [employer] CHOICE PPO MCR ADVANT Discharge Planning Comments: PATIENT WANTS [facility] WILL SUBMIT CLINICALS TO [facility] WHEN PATIENT IS MEDICALLY STABLE. Office Support Associate: Yamilet Grossman DCP- Discharge Planning Updated by [id number]: Yamilet Grossman on 10/06/18 11:[address] Patient Name: TYLER TOVAR Admission Status: ER Accout number: [id number] Admission Date: 10-03-2018 : 1950 Admission Diagnosis:TYPE 2 DIABETES MELLITUS WITH FOOT ULCER Attending: CYNTHIA BOBBY Current LOS: 3 Anticipated DC Date: Planned Disposition: Primary [facility] Discharge Planning Comments: CM MET WITH PATIENT ABOUT DC PLANNING/NEEDS. PATIENT IS UNSURE OF DC PLAN. LIVES HOME ALONE, NO FAMILY. HAS A FRIEND NAMED CHITO THAT DOES HER SHOPPING AND OTHER THINGS FOR HER. SHE IS UNABLE TO AMBULATE. USES A WHEELCHAIR AT HOME AND TRANSFERS HERSELF FROM WHEELCHAIR TO CHAIR. THE CHART STATES SHE WILL PROB HAVE SURGERY ON HER FOOT SATURDAY. SHE MAY NEED SNF OR REHAB. AT THIS TIME SHE MAY BE TO LOW FUNCTION FOR IPREHAB. CM WILL FOLLOW AND ASSIST NEEDED WITH DC PLANNING/NEEDS. HOME ENVIRONMENT MAY NOT BE SAFE, RN SAID IT IS EXTREMELY DIRTY. Office Support Associate: Yamilet Grossman DCPIA - Discharge Planning Initial Assessment Updated by [id number]: Yamilet Grossman on 10/06/18 12:17 pm * Is the patient Alert and Oriented? Yes * PCP NONE * [facility] * Preadmission Environment Home Alone * ADLs Partial Dependent * Partial ADLs (Assistance needed) Ambulation Bathing Dressing Toileting * Equipment Wheelchair * List name and contact numbers for known caregivers / representatives who currently or will assist patient after discharge: CHITO NATION, FRIEND, * Community resources currently utilized None * Additional services required to return to the preadmission environment? Yes * Can the patient safely return to the preadmission environment? No * Has this patient been hospitalized within the prior 30 days at any hospital? No Last DP export: 10/13/18 11:26 am Patient Name: TYLER TOVAR Page 62073 at 0906 All edits/amendments must be made on the electronic document DICTATION DATE: 10/14/18904 DISHWASHING MACHINE REPAIRER: DM 10/14/18904 RPT#: [id number] DC DATE: STATUS: ADM IN [facility] [address] [place] [address] END OF REPORT
[2018-10-14 11:50] VITALS: BP 151/64
--- NOTE | 2018-10-14 13:00 | NUR ---
pt c/o sob, o2 sat @ 98-99% on 3L NC. no s/s of acute distress noted. pt down in bed, assisted pt up in the bed. pt denies anything further at this time. call light in reach.
--- NOTE | 2018-10-14 13:27 | NUR ---
OT NOTE: EDUCATED PT ON IMPORTANCE OF SITTING UP IN CHAIR, BUT SHE DID NOT FEEL THAT SHE COULD GET TO IT. BED MOB WITH MIN ASSIST; SITTING ON EDGE OF BED WITHOUT SUPPORT AND GOOD SITTING BALANCE; ABLE TO STAND WITH USE OF WALKER AND MIN ASSIST; ABLE TO SIDE STEP 1 STEP X 2 TRIALS. AROM EXS WITH MIN REST BREAKS. RADHA YOON, OTR/L
--- NOTE | 2018-10-14 14:03 | MORECARE ---
CASE MANAGEMENT DISCHARGE SUMMARY PATIENT: TYLER TOVAR UNIT: [id number] ADM DATE: 10/03/18 AGE: 68 : 51 SEX: F ROOM/BED: D.1213 AUTHOR: JENYDOC PHYSICIAN: REFERRING PHYSICIAN: CYNTHIA MARTINEZ MD DATE OF SERVICE: 10/14/18 Discharge Plan Patient Name: TYLER TOVAR Facility: [facility]:[place] : 1950 Planned Disposition: Anticipated Discharge Date: Discharge Date: Expected LOS: Initial Reviewer: [id number] Initial Review Date: 10/06/2018 Generated: 10/14/18 3:02 pm Comments DCP- Discharge Planning Updated by [email or web address]: Yamilet Grossman on 10/14/18 8:[address] Patient Name: TYLER TOVAR Admission Status: ER Accout number: [id number] Admission Date: 10-03-2018 : 1950 Admission Diagnosis:TYPE 2 DIABETES MELLITUS WITH FOOT ULCER Attending: CYNTHIA BOBBY Current LOS: 11 Anticipated DC Date: Planned Disposition: Primary Insurance: [employer] CHOICE PPO MCR ADVANT Discharge Planning Comments: CM WILL MEET WITH PATIENT TODAY AND BEGIN THE PROCESS OF SNF IF PATIENT WILL AGREE. Cigarette Carton Sealer: Yamilet Grossman DCP- Discharge Planning Updated by [email or web address]: Lizett Forrester on 10/13/18 11:[address] CM RECEIVED TC AT 1058 FROM [facility]. PATIENT IS NOT PARTICIPATING WITH PHYSICAL THERAPY. PREAUTH UNLIKELY WITH HER INSURER DUE TO NONPARTICIPATION. TC TO PHYSICAL THERAPY TO DISCUSS PATIENT PROGRESS. WILL ALSO VISIT WITH THE PATIENT. ASHER HANSON, WITH DR SONG CALLED THIS AM STATING NURSING STAFF CAN START DAILY DRESSING CHANGES. DCP- Discharge Planning Updated by [id number]: Yamilet Grossman on 10/10/18 12:[address] Patient Name: TYLER TOVAR Admission Status: ER Accout number: [id number] Admission Date: 10-03-2018 : 1950 Admission Diagnosis:TYPE 2 DIABETES MELLITUS WITH FOOT ULCER Attending: CYNTHIA BOBBY Current LOS: 7 Anticipated DC Date: Planned Disposition: Primary Insurance: [employer] CHOICE PPO MCR ADVANT Discharge Planning Comments: PATIENT WANTS [facility] WILL SUBMIT CLINICALS TO [facility] WHEN PATIENT IS MEDICALLY STABLE. Cigarette Carton Sealer: Yamilet Grossman DCP- Discharge Planning Updated by [id number]: Yamilet Grossman on 10/06/18 11:[address] Patient Name: TYLER TOVAR Admission Status: ER Accout number: [id number] Admission Date: 10-03-2018 : 1950 Admission Diagnosis:TYPE 2 DIABETES MELLITUS WITH FOOT ULCER Attending: CYNTHIA BOBBY Current LOS: 3 Anticipated DC Date: Planned Disposition: [facility] Discharge Planning Comments: CM MET WITH PATIENT ABOUT DC PLANNING/NEEDS. PATIENT IS UNSURE OF DC PLAN. LIVES HOME ALONE, NO FAMILY. HAS A FRIEND NAMED CHITO THAT DOES HER SHOPPING AND OTHER THINGS FOR HER. SHE IS UNABLE TO AMBULATE. USES A WHEELCHAIR AT HOME AND TRANSFERS HERSELF FROM WHEELCHAIR TO CHAIR. THE CHART STATES SHE WILL PROB HAVE SURGERY ON HER FOOT SATURDAY. SHE MAY NEED SNF OR REHAB. AT THIS TIME SHE MAY BE TO LOW FUNCTION FOR IPREHAB. CM WILL FOLLOW AND ASSIST NEEDED WITH DC PLANNING/NEEDS. HOME ENVIRONMENT MAY NOT BE SAFE, RN SAID IT IS EXTREMELY DIRTY. Cigarette Carton Sealer: Yamilettatyana Grossman DCPIA - Discharge Planning Initial Assessment Updated by [email or web address]: Yamilet Grossman on 10/06/18 12:17 pm * Is the patient Alert and Oriented? Yes * PCP NONE * [facility] * Preadmission Environment Home Alone * ADLs Partial Dependent * Partial ADLs (Assistance needed) Ambulation Bathing Dressing Toileting * Equipment Wheelchair * List name and contact numbers for known caregivers / representatives who currently or will assist patient after discharge: CHITO NATION, FRIEND, * Community resources currently utilized None * Additional services required to return to the preadmission environment? Yes * Can the patient safely return to the preadmission environment? No * Has this patient been hospitalized within the prior 30 days at any hospital? No External Providers External Provider: [facility] Next Contact Date: Service Request Date: Service Type: Resolution: Reviewer: Comments: Coverage Notice Reviewer: [id number] - Yamilet Ngoc Notice Issued Date-Time: 10/14/2018 12:02 Notice Type: Patient Choice Letter Notice Delivered To: Patient Relationship to Patient: Self Director Of Radiology Name: Delivery Method: HAND - Hand Delivered Laura Days: Prior Verbal Notification: Recipient Understood Notice: Yes Recipient Signature: Yes Med Rec Note Co-signed by Attending: Coverage Notice Comment: [address] Last DP export: 10/14/18 8:06 am Patient Name: TYLER TOVAR Page [id number] at 1403 All edits/amendments must be made on the electronic document DICTATION DATE: 10/14/18 1402 APPLIED RESEARCH DIRECTOR: NINA 10/14/18 1402 RPT#: [id number] DC DATE: STATUS: ADM IN [facility] [address] [place] [address] END OF REPORT
[2018-10-14 16:54] VITALS: BP 150/78
--- NOTE | 2018-10-14 19:45 | NUR ---
RESUMING CARE ,PT LAYING IN BED A&O X4 LFT FA IV SL DRSGING TO R FOOT C/D/I PARMAR IN PLACE NO C/O PAIN PAIN OR DISTRESS CL IN REACH WILL CONT TO MONITOR
[2018-10-14 20:00] VITALS: BP 154/72
--- NOTE | 2018-10-14 21:23 | NUR ---
OT NOTE: PT COMPLETED BED MOB WITH MOD A. PT COMPLETED EOB SITTING WITH SBA. PT COMPLETED BUE AROM AXS. THANK YOU, GILES PACE
[2018-10-15] VITALS: BP 167/96
[2018-10-15 04:00] VITALS: BP 154/79
--- NOTE | 2018-10-15 04:07 | NUR ---
I AGREE WITH THE REFINERY OPERATOR HELPER CRUDE UNIT ASSESSMENT CHARTED THIS SHIFT.
[2018-10-15 07:17] LABS: BASOPHILS 0.3 % (0-2); EOSINOPHILS 5.3 % (0-7); HEMATOCRIT 33.3 % (36.0-48.0); HEMOGLOBIN 10.6 g/dL (12-16); IMMATURE GRANULOCYTES 0.3 % (0-5); LYMPHOCYTES 28.4 % (15-50); MCH 27.7 pg (26.0-34.0); MCHC 31.8 g/dL (31.0-37.0); MCV 87.2 fL (80.0-100.0); MEAN PLATELET VOLUME 9.7 fL (7.4-10.4); MONOCYTES 5.8 % (2-11); NEUTROPHILS 59.9 % (40-80); PLATELET COUNT 340 10x3/uL (130-400); RBC 3.82 10x6/uL (4.00-5.40); RDW 14.3 % (11.5-14.5); WBC 7.6 10x3/uL (4.8-10.8)
[2018-10-15 07:22] LABS: ALBUMIN 2.2 g/dL (3.4-5.0); ALKALINE PHOSPHATASE 59 U/L (46-116); ALT (SGPT) 16 U/L (10-68); CALCIUM 8.5 mg/dL (8.5-10.1); CARBON DIOXIDE 31.7 mmol/L (21.0-32.0); CHLORIDE - SERUM 103 mmol/L (98-107); GLUCOSE 145 mg/dL (74-106); POTASSIUM - SERUM 3.6 mmol/L (3.5-5.1); PROTEIN - SERUM 7.3 g/dL (6.4-8.2); SODIUM 141 mmol/L (136-145)
[2018-10-15 07:35] LABS: CALC OSMOLALITY 281 mosm/kg (275-300); CREATININE - SERUM 0.5 mg/dL (0.6-1.3); UREA NITROGEN 8 mg/dL (7-18); eGFR NON AFRICAN AMERICAN > 90 mL/min (90-120)
--- NOTE | 2018-10-15 09:00 | NUR ---
REPORT RECEIVED AND CARE ASSUMED. SHIFT ASSESSMENT COMPLETED. LYING IN BED SUPINE WITH EYES CLOSED. DENIES ANY NEEDS. BED IN LOW POSITION. CONTINUE PLAN OF CARE.
[2018-10-15 09:27] VITALS: BP 145/64
[2018-10-15 12:03] VITALS: BP 145/72
--- NOTE | 2018-10-15 14:35 | NUR ---
OT NOTE: PT MORE COOPERATIVE TODAY. ABLE TO SIT UP ON EDGE OF BED WITH USE OF BED RAILS AND MIN ASSIST; SIT TO STAND WITH VERY MINIMAL ASSIST X 3 SETS. TOLERATED STANDING EACH TIME X 1-2 MIN. ABLE TO SIDE STEP ONCE. ABLE TO SCOOT UP IN BED WITH USE OF BED RAILS AND MIN ASSIST. PERFORMED PERINEAL CARE.. CLEANED BOTTOM AND APPLIED CREAM. PRESSURE AREAS LOOKING MUCH BETTER. PT ABLE TO PERFORM FEEDING AND SIMPLE GROOMING WITH SET UP RADHA YOON OTR/L
--- NOTE | 2018-10-15 16:22 | NUR ---
OT NOTE: PT COMPLETED BED MOB USING SIDE RAILS AND UE AROM AXS. THANK YOU, GILES PACE
--- NOTE | 2018-10-15 17:13 | MORECARE ---
CASE MANAGEMENT DISCHARGE SUMMARY PATIENT: TYLER TOVAR UNIT: [id number] ADM DATE: 10/03/18 AGE: 68 : 51 SEX: F ROOM/BED: D.1213 AUTHOR: JENYDOC PHYSICIAN: REFERRING PHYSICIAN: CYNTHIA MARTINEZ MD DATE OF SERVICE: 10/15/18 Discharge Plan Patient Name: TYLER TOVAR Facility: [facility]:[place] : 1950 Planned Disposition: Anticipated Discharge Date: Discharge Date: Expected LOS: Initial Reviewer: [id number] Initial Review Date: 10/06/2018 Generated: 10/15/18 6:13 pm Comments DCP- Discharge Planning Updated by [id number]: Yamilet Grossman on 10/14/18 8:[address] Patient Name: TYLER TOVAR Admission Status: ER Accout number: [id number] Admission Date: 10-03-2018 : 1950 Admission Diagnosis:TYPE 2 DIABETES MELLITUS WITH FOOT ULCER Attending: CYNTHIA BOBBY Current LOS: 11 Anticipated DC Date: Planned Disposition: Primary Insurance: HU[employer]NA CHOICE PPO MCR ADVANT Discharge Planning Comments: CM WILL MEET WITH PATIENT TODAY AND BEGIN THE PROCESS OF SNF IF PATIENT WILL AGREE. Dross Skimmer: Yamilet Grossman DCP- Discharge Planning Updated by [id number]: Lizett Forrester on 10/13/18 11:[address] CM RECEIVED TC AT 1058 FROM [facility]. PATIENT IS NOT PARTICIPATING WITH PHYSICAL THERAPY. PREAUTH UNLIKELY WITH HER INSURER DUE TO NONPARTICIPATION. TC TO PHYSICAL THERAPY TO DISCUSS PATIENT PROGRESS. WILL ALSO VISIT WITH THE PATIENT. ASHER HANSON, WITH DR SONG CALLED THIS AM STATING NURSING STAFF CAN START DAILY DRESSING CHANGES. DCP- Discharge Planning Updated by [id number]: Yamilet Grossman on 10/10/18 12:[address] Patient Name: TYLER TOVAR Admission Status: ER Accout number: [id number] Admission Date: 10-03-2018 : 1950 Admission Diagnosis:TYPE 2 DIABETES MELLITUS WITH FOOT ULCER Attending: CYNTHIA BOBBY Current LOS: 7 Anticipated DC Date: Planned Disposition: Primary Insurance: HUMANA CHOICE PPO MCR ADVANT Discharge Planning Comments: PATIENT WANTS [facility] SUBM[facility] CLINICALS TO [facility] WHEN PATIENT IS MEDICALLY STABLE. Dross Skimmer: Yamilet Grossman DCP- Discharge Planning Updated by [id number]: Yamilet Grossman on 10/06/18 11:[address] Patient Name: TYLER TOVAR Admission Status: ER Accout number: [id number] Admission Date: 10-03-2018 : 1950 Admission Diagnosis:TYPE 2 DIABETES MELLITUS WITH FOOT ULCER Attending: CYNTHIA BOBBY Current LOS: 3 Anticipated DC Date: Planned Disposition: Primary Insurance[facility] Discharge Planning Comments: CM MET WITH PATIENT ABOUT DC PLANNING/NEEDS. PATIENT IS UNSURE OF DC PLAN. LIVES HOME ALONE, NO FAMILY. HAS A FRIEND NAMED CHITO THAT DOES HER SHOPPING AND OTHER THINGS FOR HER. SHE IS UNABLE TO AMBULATE. USES A WHEELCHAIR AT HOME AND TRANSFERS HERSELF FROM WHEELCHAIR TO CHAIR. THE CHART STATES SHE WILL PROB HAVE SURGERY ON HER FOOT SATURDAY. SHE MAY NEED SNF OR REHAB. AT THIS TIME SHE MAY BE TO LOW FUNCTION FOR IPREHAB. CM WILL FOLLOW AND ASSIST NEEDED WITH DC PLANNING/NEEDS. HOME ENVIRONMENT MAY NOT BE SAFE, RN SAID IT IS EXTREMELY DIRTY. Dross Skimmer: Yamilettatyana Grossman DCPIA - Discharge Planning Initial Assessment Updated by [id number]: Yamilet Grossman on 10/06/18 12:17 pm * Is the patient Alert and Oriented? Yes * PCP NONE * [facility] * Preadmission Environment Home Alone * ADLs Partial Dependent * Partial ADLs (Assistance needed) Ambulation Bathing Dressing Toileting * Equipment Wheelchair * List name and contact numbers for known caregivers / representatives who currently or will assist patient after discharge: CHITO NATION, FRIEND, * Community resources currently utilized None * Additional services required to return to the preadmission environment? Yes * Can the patient safely return to the preadmission environment? No * Has this patient been hospitalized within the prior 30 days at any hospital? No External Providers [facility] Next Contact Date: Service Request Date: Service Type: Resolution: Reviewer: Comments: Coverage Notice Reviewer: [id number] - Yamilet Ngoc Notice Issued Date-Time: 10/14/2018 12:02 Notice Type: Patient Choice Letter Notice Delivered To: Patient Relationship to Patient: Self Water And Fire Technician Name: Delivery Method: HAND - Hand Delivered Laura Days: Prior Verbal Notification: Recipient Understood Notice: Yes Recipient Signature: Yes Med Rec Note Co-signed by Attending: Coverage Notice Comment: [address] Last DP export: 10/14/18 1:03 pm Patient Name: TYLER TOVAR Page [id number] at 1713 All edits/amendments must be made on the electronic document DICTATION DATE: 10/15/181711 DETAILER SCHOOL PHOTOGRAPHS: NINA 10/15/181711 RPT#: [id number] DC DATE: STATUS: ADM IN [facility] [address] [place] [address] END OF REPORT
--- NOTE | 2018-10-15 17:20 | MORECARE ---
CASE MANAGEMENT DISCHARGE SUMMARY PATIENT: TYLER TOVAR UNIT: [id number] ADM DATE: 10/03/18 AGE: 68 : 51 SEX: F ROOM/BED: D.1213 AUTHOR: JENY,DOC PHYSICIAN: REFERRING PHYSICIAN: CYNTHIA MARTINEZ MD DATE OF SERVICE: 10/15/18 Discharge Plan Patient Name: TYLER TOVAR Facility: [facility]:[place] : 1950 Planned Disposition: Anticipated Discharge Date: Discharge Date: Expected LOS: Initial Reviewer: [id number] Initial Review Date: 10/06/2018 Generated: 10/15/18 6:20 pm Comments DCP- Discharge Planning Updated by [id number]: Yamilet Grossman on 10/15/18 4:[address] Patient Name: TYLER TOVAR Admission Status: ER Accout number: [id number] Admission Date: 10-03-2018 : 1950 Admission Diagnosis:TYPE 2 DIABETES MELLITUS WITH FOOT ULCER Attending: CYNTHIA BOBBY Current LOS: 12 Anticipated DC Date: Planned Disposition: Primary Insurance: HU[employer]NA CHOICE PPO MCR ADVANT Discharge Planning Comments: CM SPOKE WITH PERICO AT THE [facility] AND SHE CAME OUT TO SEE PATIENT TODAY. HOLDEN WILL BE NEEDED. CM FAXED HOLDEN TODAY, WAITING FOR RESPONSE. PLAN IS FOR PATIENT TO GO TO THE [facility] FOR SNF IF ACCEPTED. CM TO FOLLOW AND ASSIST NEEDED WITH DC PLANNING/NEEDS. Ssis Developer: Yamilet Grossman DCP- Discharge Planning Updated by [id number]: Yamilet Grossman on 10/14/18 8:[address] Patient Name: TYLER TOVAR Admission Status: ER Accout number: [id number] Admission Date: 10-03-2018 : 1950 Admission Diagnosis:TYPE 2 DIABETES MELLITUS WITH FOOT ULCER Attending: CYNTHIA BOBBY Current LOS: 11 Anticipated DC Date: Planned Disposition: Primary Insurance: HU[employer]NA CHOICE PPO MCR ADVANT Discharge Planning Comments: CM WILL MEET WITH PATIENT TODAY AND BEGIN THE PROCESS OF SNF IF PATIENT WILL AGREE. Ssis Developer: Yamilet Grossman DCP- Discharge Planning Updated by [id number]: Lizett Forrester on 10/13/18 11:[address] CM RECEIVED TC AT 1058 [facility]. PATIENT IS NOT PARTICIPATING WITH PHYSICAL THERAPY. PREAUTH UNLIKELY WITH HER INSURER DUE TO NONPARTICIPATION. TC TO PHYSICAL THERAPY TO DISCUSS PATIENT PROGRESS. WILL ALSO VISIT WITH THE PATIENT. ASHER HANSON, WITH DR SNOG CALLED THIS AM STATING NURSING STAFF CAN START DAILY DRESSING CHANGES. DCP- Discharge Planning Updated by [id number]: Yamilet Grossman on 10/10/18 12:[address] Patient Name: TYLER TOVAR Admission Status: ER Accout number: [id number] Admission Date: 10-03-2018 : 1950 Admission Diagnosis:TYPE 2 DIABETES MELLITUS WITH FOOT ULCER Attending: CYNTHIA BOBBY Current LOS: 7 Anticipated DC Date: Planned Disposition: Primary Insurance: [employer]NA [employer] PPO MCR ADVANT Discharge Planning Comments: PATIENT WANTS [facility] WILL SUBMIT CLINICALS TO [facility] WHEN PATIENT IS MEDICALLY STABLE. Ssis Developer: Yamilet Grossman DCP- Discharge Planning Updated by [id number]: Yamilet Grossman on 10/06/18 11:[address] Patient Name: TYLER TOVAR Admission Status: ER Accout number: [id number] Admission Date: 10-03-2018 : 1950 Admission Diagnosis:TYPE 2 DIABETES MELLITUS WITH FOOT ULCER Attending: CYNTHIA BOBBY Current LOS: 3 Anticipated DC Date: Planned Disposition: Primary Insurance: [employer]NA [employer] PPO Discharge Planning Comments: CM MET WITH PATIENT ABOUT DC PLANNING/NEEDS. PATIENT IS UNSURE OF DC PLAN. LIVES HOME ALONE, NO FAMILY. HAS A FRIEND NAMED CHITO THAT DOES HER SHOPPING AND OTHER THINGS FOR HER. SHE IS UNABLE TO AMBULATE. USES A WHEELCHAIR AT HOME AND TRANSFERS HERSELF FROM WHEELCHAIR TO CHAIR. THE CHART STATES SHE WILL PROB HAVE SURGERY ON HER FOOT SATURDAY. SHE MAY NEED SNF OR REHAB. AT THIS TIME SHE MAY BE TO LOW FUNCTION FOR IPREHAB. CM WILL FOLLOW AND ASSIST NEEDED WITH DC PLANNING/NEEDS. HOME ENVIRONMENT MAY NOT BE SAFE, RN SAID IT IS EXTREMELY DIRTY. Ssis Developer: Yamilet Grossman DCPIA - Discharge Planning Initial Assessment Updated by [email or web address]: Yamilet Grossman on 10/06/18 12:17 pm * Is the patient Alert and Oriented? Yes * PCP NONE * [facility] * Preadmission Environment Home Alone * ADLs Partial Dependent * Partial ADLs (Assistance needed) Ambulation Bathing Dressing Toileting * Equipment Wheelchair * List name and contact numbers for known caregivers / representatives who currently or will assist patient after discharge: CHITO NATION, FRIEND, * Community resources currently utilized None * Additional services required to return to the preadmission environment? Yes * Can the patient safely return to the preadmission environment? No * Has this patient been hospitalized within the prior 30 days at any hospital? No Coverage Notice Reviewer: [id number] Randal Grossman Notice Issued Date-Time: 10/14/2018 12:02 Notice Type: Patient Choice Letter Notice Delivered To: Patient Relationship to Patient: Self Laborer Gold Leaf Name: Delivery Method: HAND - Hand Delivered Laura Days: Prior Verbal Notification: Recipient Understood Notice: Yes Recipient Signature: Yes Med Rec Note Co-signed by Attending: Coverage Notice Comment: [facility] Last DP export: 10/15/18 4:13 pm Patient Name: TYLER TOVAR Page [id number] at 1720 All edits/amendments must be made on the electronic document DICTATION DATE: 10/15/18 172 DRILL RUNNER: NINA 10/15/18 172 RPT#: [id number] DC DATE: STATUS: ADM IN [facility] [address] [place] [address] END OF REPORT
[2018-10-15 17:43] VITALS: BP 164/64
--- NOTE | 2018-10-15 20:00 | NUR ---
LYING IN BED. ALERT AND ORIENTED X4. FLAT AFFECT. RESP IRREG, SOB NOTED. O2 @ 3L/NC. KEEPS HOB FLAT. BBS CTA WITH EXP WHEEZES NOTED IN LT LOBES. ABD OBESE. BS PRESENT X4 QUADS. PARMAR CATH PATENT AND DRAINING YELLOW URINE. LEGS AND FEET ARE DRY SCALY. DRSG NOTED TO RT FOOT. REDNESS NOTED TO INNER THIGHS AND BUTTOCKS ARE EXCORIATED. REFUSES TO WEAR SCDS. NO IV ACCESS. DENIES PAIN. NO DISTRESS. SR ELEVATED X2. CL IN REACH.
[2018-10-15 20:46] VITALS: BP 167/76
--- NOTE | 2018-10-16 00:44 | NUR ---
HAS SLEPT WELL SO FAR. LYING IN BED WITH EYES CLOSED. RESP NONLABORED. NO DISTRESS. SR ELEVATED X2. CL IN REACH.
[2018-10-16 01:00] VITALS: BP 160/70
--- NOTE | 2018-10-16 05:16 | NUR ---
REFUSED 0400 V/S.
--- NOTE | 2018-10-16 05:56 | NUR ---
CALMOSEPTINE CREAM APPLIED TO EXCORIATION ON BUTTOCKS
[2018-10-16 06:43] LABS: ALBUMIN 2.2 g/dL (3.4-5.0); ALKALINE PHOSPHATASE 57 U/L (46-116); ALT (SGPT) 17 U/L (10-68); CALC OSMOLALITY 283 mosm/kg (275-300); CALCIUM 8.7 mg/dL (8.5-10.1); CARBON DIOXIDE 34.7 mmol/L (21.0-32.0); CHLORIDE - SERUM 103 mmol/L (98-107); CREATININE - SERUM 0.6 mg/dL (0.6-1.3); GLUCOSE 147 mg/dL (74-106); POTASSIUM - SERUM 3.7 mmol/L (3.5-5.1); PROTEIN - SERUM 7.3 g/dL (6.4-8.2); SODIUM 142 mmol/L (136-145); UREA NITROGEN 8 mg/dL (7-18); eGFR NON AFRICAN AMERICAN > 90 mL/min (90-120)
[2018-10-16 06:46] LABS: BASOPHILS 0.4 % (0-2); EOSINOPHILS 5.4 % (0-7); HEMATOCRIT 32.8 % (36.0-48.0); HEMOGLOBIN 10.4 g/dL (12-16); IMMATURE GRANULOCYTES 0.3 % (0-5); LYMPHOCYTES 25.3 % (15-50); MCH 27.6 pg (26.0-34.0); MCHC 31.7 g/dL (31.0-37.0); MEAN PLATELET VOLUME 9.8 fL (7.4-10.4); MONOCYTES 6.7 % (2-11); NEUTROPHILS 61.9 % (40-80); PLATELET COUNT 357 10x3/uL (130-400); RBC 3.77 10x6/uL (4.00-5.40); RDW 14.3 % (11.5-14.5); WBC 7.7 10x3/uL (4.8-10.8)
[2018-10-16 07:48] VITALS: BP 167/92
--- NOTE | 2018-10-16 08:00 | NUR ---
ASSESSMENT COMPLETE. NO IV ACCESS. DRESSING TO RIGHT FOOT INTACT. PARMAR PATENT DRAINING YELLOW URINE. O2 3L NC IN USE. INCONT OF BOWEL. HAIM AREA WITH EXCORIATION NOTED. DENIES ANY NEEDS AT THIS TIME.
--- NOTE | 2018-10-16 11:46 | MORECARE ---
CASE MANAGEMENT DISCHARGE SUMMARY PATIENT: TYLER TOVAR UNIT: [id number] ADM DATE: 10/03/18 AGE: 68 : 51 SEX: F ROOM/BED: D.1213 AUTHOR: JENY,DOC PHYSICIAN: REFERRING PHYSICIAN: CYNTHIA MARTINEZ MD DATE OF SERVICE: 10/16/18 Discharge Plan Patient Name: TYLER TOVAR Facility: [facility]:[place] : 1950 Planned Disposition: Anticipated Discharge Date: Discharge Date: Expected LOS: Initial Reviewer: [id number] Initial Review Date: 10/06/2018 Generated: 10/16/18 12:46 pm Comments DCP- Discharge Planning Updated by [id number]: Yamilet Grossman on 10/15/18 4:[address] Patient Name: TYLER TOVAR Admission Status: ER Accout number: [id number] Admission Date: 10-03-2018 : 1950 Admission Diagnosis:TYPE 2 DIABETES MELLITUS WITH FOOT ULCER Attending: CYNTHIA BOBBY Current LOS: 12 Anticipated DC Date: Planned Disposition: Primary Insurance: HU[employer]NA CHOICE PPO MCR ADVANT Discharge Planning Comments: CM SPOKE WITH PERICO AT THE [facility] AND SHE CAME OUT TO SEE PATIENT TODAY. HOLDEN WILL BE NEEDED. CM FAXED HOLDEN TODAY, WAITING FOR RESPONSE. PLAN IS FOR PATIENT TO GO TO THE [facility] FOR SNF IF ACCEPTED. CM TO FOLLOW AND ASSIST NEEDED WITH DC PLANNING/NEEDS. Rn Pacu: Yamilet Grossman DCP- Discharge Planning Updated by [id number]: Yamilet Grossman on 10/14/18 8:[address] Patient Name: TYLER TOVAR Admission Status: ER Accout number: [id number] Admission Date: 10-03-2018 : 1950 Admission Diagnosis:TYPE 2 DIABETES MELLITUS WITH FOOT ULCER Attending: CYNTHIA BOBBY Current LOS: 11 Anticipated DC Date: Planned Disposition: Primary Insurance: [employer]NA CHOICE PPO MCR ADVANT Discharge Planning Comments: CM WILL MEET WITH PATIENT TODAY AND BEGIN THE PROCESS OF SNF IF PATIENT WILL AGREE. Rn Pacu: Yamilet Grossman DCP- Discharge Planning Updated by [id number]: Lizett Forrester on 10/13/18 11:[address] CM RECEIVED TC AT 1058 FROM [facility]. PATIENT IS NOT PARTICIPATING WITH PHYSICAL THERAPY. PREAUTH UNLIKELY WITH HER INSURER DUE TO NONPARTICIPATION. TC TO PHYSICAL THERAPY TO DISCUSS PATIENT PROGRESS. WILL ALSO VISIT WITH THE PATIENT. ASHER HANSON, WITH DR SONG CALLED THIS AM STATING NURSING STAFF CAN START DAILY DRESSING CHANGES. DCP- Discharge Planning Updated by [id number]: Yamilet Grossman on 10/10/18 12:[address] Patient Name: TYLER TOVAR Admission Status: ER Accout number: [id number] Admission Date: 10-03-2018 : 1950 Admission Diagnosis:TYPE 2 DIABETES MELLITUS WITH FOOT ULCER Attending: CYNTHIA BOBBY Current LOS: 7 Anticipated DC Date: Planned Disposition: Primary Insurance: HUMANA [employer] 49 PPO MCR ADVANT Discharge Planning Comments: PATIENT WANTS [facility] WILL SUBM[facility] CL[facility]IC[facility] TO [facility] WHEN PATIENT IS MEDICALLY STABLE. Rn Pacu: Yamilet Grossman DCP- Discharge Planning Updated by [id number]: Yamilet Grossman on 10/06/18 11:[address] Patient Name: TYLER TOVAR Admission Status: ER Accout number: [id number] Admission Date: 10-03-2018 : 1950 Admission Diagnosis:TYPE 2 DIABETES MELLITUS WITH FOOT ULCER Attending: CYNTHIA BOBBY Current LOS: 3 Anticipated DC Date: Planned Disposition: Primary Insurance: HUMANA [employer] 49CARE PPO Discharge Planning Comments: CM MET WITH PATIENT ABOUT DC PLANNING/NEEDS. PATIENT IS UNSURE OF DC PLAN. LIVES HOME ALONE, NO FAMILY. HAS A FRIEND NAMED CHITO THAT DOES HER SHOPPING AND OTHER THINGS FOR HER. SHE IS UNABLE TO AMBULATE. USES A WHEELCHAIR AT HOME AND TRANSFERS HERSELF FROM WHEELCHAIR TO CHAIR. THE CHART STATES SHE WILL PROB HAVE SURGERY ON HER FOOT SATURDAY. SHE MAY NEED SNF OR REHAB. AT THIS TIME SHE MAY BE TO LOW FUNCTION FOR IPREHAB. CM WILL FOLLOW AND ASSIST NEEDED WITH DC PLANNING/NEEDS. HOME ENVIRONMENT MAY NOT BE SAFE, RN SAID IT IS EXTREMELY DIRTY. Rn Pacu: Yamilet Grossman DCPIA - Discharge Planning Initial Assessment Updated by [id number]: Yamilet Grossman on 10/06/18 12:17 pm * Is the patient Alert and Oriented? Yes * PCP NONE * [facility] * Preadmission Environment Home Alone * ADLs Partial Dependent * Partial ADLs (Assistance needed) Ambulation Bathing Dressing Toileting * Equipment Wheelchair * List name and contact numbers for known caregivers / representatives who currently or will assist patient after discharge: CHITO NATION, FRIEND, * Community resources currently utilized None * Additional services required to return to the preadmission environment? Yes * Can the patient safely return to the preadmission environment? No * Has this patient been hospitalized within the prior 30 days at any hospital? No External Providers External Provider: [facility] Next Contact Date: Service Request Date: Service Type: Resolution: Reviewer: Comments: Coverage Notice Reviewer: [id number] - Yamilet Grossman Notice Issued Date-Time: 10/14/2018 12:02 Notice Type: Patient Choice Letter Notice Delivered To: Patient Relationship to Patient: Self Web Marketing Coordinator Name: Delivery Method: HAND - Hand Delivered Laura Days: Prior Verbal Notification: Recipient Understood Notice: Yes Recipient Signature: Yes Med Rec Note Co-signed by Attending: Coverage Notice Comment: JES[facility]S [facility] Last DP export: 10/15/18 4:20 pm Patient Name: TYLER TOVAR Page 25053 at 1146 All edits/amendments must be made on the electronic document DICTATION DATE: 10/16/18 1145 SHIPPING LEAD: NINA 10/16/18 1145 RPT#: [id number] DC DATE: STATUS: ADM IN [facility] [address] [place] [address] END OF REPORT
--- NOTE | 2018-10-16 11:50 | NUR ---
DRESSING TO RIGHT FOOT CHANGED. SUTURES INTACT TO RIGHT GREAT TOE INCISION. DENIES ANY NEEDS AT THIS TIME.
--- NOTE | 2018-10-16 11:55 | MORECARE ---
CASE MANAGEMENT DISCHARGE SUMMARY PATIENT: TYLER TOVAR UNIT: [id number] ADM DATE: 10/03/18 AGE: 68 : 51 SEX: F ROOM/BED: D.1213 AUTHOR: JENYDOC PHYSICIAN: REFERRING PHYSICIAN: CYNTHIA MARTINEZ MD DATE OF SERVICE: 10/16/18 Discharge Plan Patient Name: TYLER TOVAR Facility: [facility]:[place] : 1950 Planned Disposition: Anticipated Discharge Date: Discharge Date: Expected LOS: Initial Reviewer: [id number] Initial Review Date: 10/06/2018 Generated: 10/16/18 12:55 pm Comments DCP- Discharge Planning Updated by [email or web address]: Yamilet Grossman on 10/16/18 10:[address] Patient Name: TYLER TOVAR Admission Status: ER Accout number: [id number] Admission Date: 10-03-2018 : 1950 Admission Diagnosis:TYPE 2 DIABETES MELLITUS WITH FOOT ULCER Attending: CYNTHIA BOBBY Current LOS: 13 Anticipated DC Date: Planned Disposition: Primary Insurance: HUMANA CHOICE PPO [facility] ADVANT Discharge Planning Comments: SPOKE WITH THE [facility] AND THEY WILL NOT ACCEPT PATIENT. CM SPOKE WITH [facility] AND THEY TAKE HUMANA INS., REFERRAL SENT TO THEM. RECIEVED HOLDEN APPROVAL AND FAXED IT TO [facility] ALSO. WAITING FOR CALL BACK. CM TO FOLLOW AND ASSIST. Travel Information Center Supervisor: Yamilet Grossman DCP- Discharge Planning Updated by [id number]: Yamilet Grossman on 10/15/18 4:[address] Patient Name: TYLER TOVAR Admission Status: ER Accout number: [id number] Admission Date: 10-03-2018 : 1950 Admission Diagnosis:TYPE 2 DIABETES MELLITUS WITH FOOT ULCER Attending: CYNTHIA BOBBY Current LOS: 12 Anticipated DC Date: Planned Disposition: Primary Insurance: HUMANA CHOICE PPO [facility] ADVANT Discharge Planning Comments: CM SPOKE WITH PERICO AT THE [facility] AND SHE CAME OUT TO SEE PATIENT TODAY. HOLDEN WILL BE NEEDED. CM FAXED HOLDEN TODAY, WAITING FOR RESPONSE. PLAN IS FOR PATIENT TO GO TO THE [facility] FOR SNF IF ACCEPTED. CM TO FOLLOW AND ASSIST NEEDED WITH DC PLANNING/NEEDS. Travel Information Center Supervisor: Yamilet Grossman DCP- Discharge Planning Updated by [id number]: Yamilet Grossman on 10/14/18 8:[address] Patient Name: TYLER TOVAR Admission Status: ER Accout number: [id number] Admission Date: 10-03-2018 : 1950 Admission Diagnosis:TYPE 2 DIABETES MELLITUS WITH FOOT ULCER Attending: CYNTHIA BOBBY Current LOS: 11 Anticipated DC Date: Planned Disposition: Primary Insurance: [employer]NA CHOICE PPO MCR ADVANT Discharge Planning Comments: CM WILL MEET WITH PATIENT TODAY AND BEGIN THE PROCESS OF SNF IF PATIENT WILL AGREE. Travel Information Center Supervisor: Yamilet Grossman DCP- Discharge Planning Updated by [id number]: Lizett Forrester on 10/13/18 11:[address] CM RECEIVED TC AT 1058 FROM [facility]/ REHAB. PATIENT IS NOT PARTICIPATING WITH PHYSICAL THERAPY. PREAUTH UNLIKELY WITH HER INSURER DUE TO NONPARTICIPATION. TC TO PHYSICAL THERAPY TO DISCUSS PATIENT PROGRESS. WILL ALSO VISIT WITH THE PATIENT. ASHER HANSON, WITH DR SONG CALLED THIS AM STATING NURSING STAFF CAN START DAILY DRESSING CHANGES. DCP- Discharge Planning Updated by [id number]: Yamilet Grossman on 10/10/18 12:[address] Patient Name: TYLER TOVAR Admission Status: ER Accout number: [id number] Admission Date: 10-03-2018 : 1950 Admission Diagnosis:TYPE 2 DIABETES MELLITUS WITH FOOT ULCER Attending: CYNTHIA BOBBY Current LOS: 7 Anticipated DC Date: Planned Disposition: Primary Insurance: HUMANA CHOICE [facility] ADVANT Discharge Planning Comments: PATIENT WANTS [facility] WILL SUBMIT CLINICALS TO [facility] WHEN PATIENT IS MEDICALLY STABLE. Travel Information Center Supervisor: Yamilet Grossman DCP- Discharge Planning Updated by [id number]: Yamilet Grossman on 10/06/18 11:[address] Patient Name: TYLER TOVAR Admission Status: ER Accout number: [id number] Admission Date: 10-03-2018 : 1950 Admission Diagnosis:TYPE 2 DIABETES MELLITUS WITH FOOT ULCER Attending: CYNTHIA BOBBY Current LOS: 3 Anticipated DC Date: Planned Disposition: Primary [facility] Discharge Planning Comments: CM MET WITH PATIENT ABOUT DC PLANNING/NEEDS. PATIENT IS UNSURE OF DC PLAN. LIVES HOME ALONE, NO FAMILY. HAS A FRIEND NAMED CHITO THAT DOES HER SHOPPING AND OTHER THINGS FOR HER. SHE IS UNABLE TO AMBULATE. USES A WHEELCHAIR AT HOME AND TRANSFERS HERSELF FROM WHEELCHAIR TO CHAIR. THE CHART STATES SHE WILL PROB HAVE SURGERY ON HER FOOT SATURDAY. SHE MAY NEED SNF OR REHAB. AT THIS TIME SHE MAY BE TO LOW FUNCTION FOR IPREHAB. CM WILL FOLLOW AND ASSIST NEEDED WITH DC PLANNING/NEEDS. HOME ENVIRONMENT MAY NOT BE SAFE, RN SAID IT IS EXTREMELY DIRTY. Travel Information Center Supervisor: Yamilet Grossman DCPIA - Discharge Planning Initial Assessment Updated by [email or web address]: Yamilet Grossman on 10/06/18 12:17 pm * Is the patient Alert and Oriented? Yes * PCP NONE * [facility] * Preadmission Environment Home Alone * ADLs Partial Dependent * Partial ADLs (Assistance needed) Ambulation Bathing Dressing Toileting * Equipment Wheelchair * List name and contact numbers for known caregivers / representatives who currently or will assist patient after discharge: CHITO NATION, FRIEND, * Community resources currently utilized None * Additional services required to return to the preadmission environment? Yes * Can the patient safely return to the preadmission environment? No * Has this patient been hospitalized within the prior 30 days at any hospital? No Coverage Notice Reviewer: [id number] - Yamielt Grossman Notice Issued Date-Time: 10/14/2018 12:02 Notice Type: Patient Choice Letter Notice Delivered To: Patient Relationship to Patient: Self Signal Technician Name: Delivery Method: HAND - Hand Delivered Laura Days: Prior Verbal Notification: Recipient Understood Notice: Yes Recipient Signature: Yes Med Rec Note Co-signed by Attending: Coverage Notice Comment: [facility] Last DP export: 10/16/18 10:46 am Patient Name: TYLER TOVAR Page [id number] at 1155 All edits/amendments must be made on the electronic document DICTATION DATE: 10/16/18 1154 FILL MANAGER: NINA 10/16/18 1154 RPT#: [id number] DC DATE: STATUS: ADM IN [facility] [address] [place] [address] END OF REPORT
[2018-10-16 13:06] VITALS: BP 132/72
--- NOTE | 2018-10-16 13:24 | NUR ---
Nutrition follow-up: Diet: ADA consistent CHO PO intake has been good; has fallen off some over the last day labs reviewed +BM Wt: 240# Will discharge to [place] home rehab soon RDN following.
[2018-10-16 15:47] VITALS: BP 146/67
--- NOTE | 2018-10-16 16:00 | NUR ---
OT NOTE: PT COMPLETED BED MOB WITH MIN A. PT COMPLETED EOB SITTING WITH SBA. PT COMPLETED SIT TO STAND WITH MIN A. PT COMPLETED SIDE STEP WITH MIN A. PT COMPLETED BUE AROM AXS. THANK YOU, G[facility]
--- NOTE | 2018-10-16 17:27 | MORECARE ---
CASE MANAGEMENT DISCHARGE SUMMARY PATIENT: TYLER TOVAR UNIT: [id number] ADM DATE: 10/03/18 AGE: 68 : 51 SEX: F ROOM/BED: D.1213 AUTHOR: JENYDOC PHYSICIAN: REFERRING PHYSICIAN: CYNTHIA MARTINEZ MD DATE OF SERVICE: 10/16/18 Discharge Plan Patient Name: TYLER TOVAR Facility: [facility]:[place] : 1950 Planned Disposition: Anticipated Discharge Date: Discharge Date: Expected LOS: Initial Reviewer: [id number] Initial Review Date: 10/06/2018 Generated: 10/16/18 6:27 pm Comments DCP- Discharge Planning Updated by [id number]: Yamilet Grossman on 10/16/18 10:[address] Patient Name: TYLER TOVAR Admission Status: ER Accout number: [id number] Admission Date: 10-03-2018 : 1950 Admission Diagnosis:TYPE 2 DIABETES MELLITUS WITH FOOT ULCER Attending: CYNTHIA BOBBY Current LOS: 13 Anticipated DC Date: Planned Disposition: Primary Insurance: HUMANA CHOICE PPO [facility] ADVANT Discharge Planning Comments: SPOKE WITH THE [facility] AND THEY WILL NOT ACCEPT PATIENT. CM SPOKE WITH [facility] AND THEY TAKE HUMANA INS., REFERRAL SENT TO THEM. RECIEVED HOLDEN APPROVAL AND FAXED IT TO [facility] ALSO. WAITING FOR CALL BACK. CM TO FOLLOW AND ASSIST. E Learning Designer: Yamilet Grossman DCP- Discharge Planning Updated by [id number]: Yamilet Grossman on 10/15/18 4:[address] Patient Name: TYLER TOVAR Admission Status: ER Accout number: [id number] Admission Date: 10-03-2018 : 1950 Admission Diagnosis:TYPE 2 DIABETES MELLITUS WITH FOOT ULCER Attending: CYNTHIA BOBBY Current LOS: 12 Anticipated DC Date: Planned Disposition: Primary Insurance: HUMANA CHOICE PPO [facility] ADVANT Discharge Planning Comments: CM SPOKE WITH PERICO AT THE [facility] AND SHE CAME OUT TO SEE PATIENT TODAY. HOLDEN WILL BE NEEDED. CM FAXED HOLDEN TODAY, WAITING FOR RESPONSE. PLAN IS FOR PATIENT TO GO TO THE [facility] FOR SNF IF ACCEPTED. CM TO FOLLOW AND ASSIST NEEDED WITH DC PLANNING/NEEDS. E Learning Designer: Yamilet Grossman DCP- Discharge Planning Updated by [id number]: Yamilet Grossman on 10/14/18 8:[address] Patient Name: TYLER TOVAR Admission Status: ER Accout number: [id number] Admission Date: 10-03-2018 : 1950 Admission Diagnosis:TYPE 2 DIABETES MELLITUS WITH FOOT ULCER Attending: CYNTHIA BOBBY Current LOS: 11 Anticipated DC Date: Planned Disposition: Primary Insurance: HUMANA CHOICE PPO [facility] ADVANT Discharge Planning Comments: CM WILL MEET WITH PATIENT TODAY AND BEGIN THE PROCESS OF SNF IF PATIENT WILL AGREE. E Learning Designer: Yamilet Grossman DCP- Discharge Planning Updated by [id number]: Lizett Forrester on 10/13/18 11:[address] CM RECEIVED TC AT 1058 FROM [facility] REHAB. PATIENT IS NOT PARTICIPATING WITH PHYSICAL THERAPY. PREAUTH UNLIKELY WITH HER INSURER DUE TO NONPARTICIPATION. TC TO PHYSICAL THERAPY TO DISCUSS PATIENT PROGRESS. WILL ALSO VISIT WITH THE PATIENT. ASHER HANSON, WITH DR SONG CALLED THIS AM STATING NURSING STAFF CAN START DAILY DRESSING CHANGES. DCP- Discharge Planning Updated by [id number]: Yamilet Grossman on 10/10/18 12:[address] Patient Name: TYLER TOVAR Admission Status: ER Accout number: [id number] Admission Date: 10-03-2018 : 1950 Admission Diagnosis:TYPE 2 DIABETES MELLITUS WITH FOOT ULCER Attending: CYNTHIA BOBBY Current LOS: 7 Anticipated DC Date: Planned Disposition: Primary Insurance: HUMANA CHOICE [facility] ADVANT Discharge Planning Comments: PATIENT WANTS [facility] WILL SUBMIT CLINICALS TO [place] WHEN PATIENT IS MEDICALLY STABLE. E Learning Designer: Yamilet Grossman DCP- Discharge Planning Updated by [id number]: Yamilet Grossman on 10/06/18 11:[address] Patient Name: TYLER TOVAR Admission Status: ER Accout number: [id number] Admission Date: 10-03-2018 : 1950 Admission Diagnosis:TYPE 2 DIABETES MELLITUS WITH FOOT ULCER Attending: CYNTHIA BOBBY Current LOS: 3 Anticipated DC Date: Planned Disposition: Primary [facility] Discharge Planning Comments: CM MET WITH PATIENT ABOUT DC PLANNING/NEEDS. PATIENT IS UNSURE OF DC PLAN. LIVES HOME ALONE, NO FAMILY. HAS A FRIEND NAMED CHITO THAT DOES HER SHOPPING AND OTHER THINGS FOR HER. SHE IS UNABLE TO AMBULATE. USES A WHEELCHAIR AT HOME AND TRANSFERS HERSELF FROM WHEELCHAIR TO CHAIR. THE CHART STATES SHE WILL PROB HAVE SURGERY ON HER FOOT SATURDAY. SHE MAY NEED SNF OR REHAB. AT THIS TIME SHE MAY BE TO LOW FUNCTION FOR IPREHAB. CM WILL FOLLOW AND ASSIST NEEDED WITH DC PLANNING/NEEDS. HOME ENVIRONMENT MAY NOT BE SAFE, RN SAID IT IS EXTREMELY DIRTY. E Learning Designer: Yamilet Grossman DCPIA - Discharge Planning Initial Assessment Updated by [email or web address]: Yamilet Grossman on 10/06/18 12:17 pm * Is the patient Alert and Oriented? Yes * PCP NONE * [facility] * Preadmission Environment Home Alone * ADLs Partial Dependent * Partial ADLs (Assistance needed) Ambulation Bathing Dressing Toileting * Equipment Wheelchair * List name and contact numbers for known caregivers / representatives who currently or will assist patient after discharge: CHITO NATION, FRIEND, * Community resources currently utilized None * Additional services required to return to the preadmission environment? Yes * Can the patient safely return to the preadmission environment? No * Has this patient been hospitalized within the prior 30 days at any hospital? No Coverage Notice Reviewer: [id number] - Yamilet Grossman Notice Issued Date-Time: 10/14/2018 12:02 Notice Type: Patient Choice Letter Notice Delivered To: Patient Relationship to Patient: Self Pit Crew Support Worker Name: Delivery Method: HAND - Hand Delivered Laura Days: Prior Verbal Notification: Recipient Understood Notice: Yes Recipient Signature: Yes Med Rec Note Co-signed by Attending: Coverage Notice Comment: [facility] Last DP export: 10/16/18 10:55 am Patient Name: TYLER TOVAR Page [id number] at 1727 All edits/amendments must be made on the electronic document DICTATION DATE: 10/16/181725 POOL HAND: NINA 10/16/181725 RPT#: [id number] DC DATE: STATUS: ADM IN [facility] [address] [place] [address] END OF REPORT
[2018-10-16 20:00] VITALS: BP 152/75
--- NOTE | 2018-10-16 20:00 | NUR ---
THE PATIENT WAS LYING IN BED AND WATCHING TELEVISION WHEN STAFF ENTERED HER AREA. BED IS IN THE LOW POSITION WITH SIDERAILS X2 AND CALL LIGHT WITHIN REACH. PATIENT WAS EDUCATED ON THE USE OF A CALL LIGHT AND DEMONSTRATES UNDERSTANDING VIA TEACHBACK METHOD. THE PATIENT APPEARS COMFORTABLE AND HAS NO QUESTIONS OR CONCERNS AT THIS TIME.
--- NOTE | 2018-10-17 03:18 | NUR ---
THE PATIENT IS AWAKE AND TALKING TO STAFF. SHE HAS NO QUESTIONS OR CONCERNS AT THIS TIME.
[2018-10-17 04:30] VITALS: BP 175/82
[2018-10-17 07:29] LABS: ALBUMIN 2.2 g/dL (3.4-5.0); ALKALINE PHOSPHATASE 64 U/L (46-116); ALT (SGPT) 12 U/L (10-68); BILIRUBIN - TOTAL 0.24 mg/dL (0.2-1.3); CALC OSMOLALITY 283 mosm/kg (275-300); CALCIUM 8.8 mg/dL (8.5-10.1); CHLORIDE - SERUM 103 mmol/L (98-107); CREATININE - SERUM 0.6 mg/dL (0.6-1.3); GLUCOSE 166 mg/dL (74-106); POTASSIUM - SERUM 3.7 mmol/L (3.5-5.1); PROTEIN - SERUM 7.3 g/dL (6.4-8.2); SODIUM 141 mmol/L (136-145); UREA NITROGEN 11 mg/dL (7-18); eGFR NON AFRICAN AMERICAN > 90 mL/min (90-120)
--- NOTE | 2018-10-17 07:32 | NUR ---
PT LYING IN BED. CALL LIGHT IN REACH. PT DENIES NEEDS OR PAIN. RESP EVEN AND UNLABORED. WILL CONTINUE TO MONITOR.
[2018-10-17 07:39] VITALS: BP 147/70
[2018-10-17 08:10] LABS: BASOPHILS 0.5 % (0-2); EOSINOPHILS 5.3 % (0-7); HEMOGLOBIN 10.1 g/dL (12-16); IMMATURE GRANULOCYTES 0.2 % (0-5); LYMPHOCYTES 28.2 % (15-50); MCH 27.6 pg (26.0-34.0); MCHC 31.6 g/dL (31.0-37.0); MCV 87.4 fL (80.0-100.0); MONOCYTES 6.8 % (2-11); PLATELET COUNT 342 10x3/uL (130-400); RBC 3.66 10x6/uL (4.00-5.40); RDW 14.2 % (11.5-14.5); WBC 8.3 10x3/uL (4.8-10.8)
--- NOTE | 2018-10-17 09:09 | MORECARE ---
CASE MANAGEMENT DISCHARGE SUMMARY PATIENT: TYLER TOVAR UNIT: [id number] ADM DATE: 10/03/18 AGE: 68 : 51 SEX: F ROOM/BED: D.1213 AUTHOR: JENYDOC PHYSICIAN: REFERRING PHYSICIAN: CYNTHIA MARTINEZ MD DATE OF SERVICE: 10/17/18 Discharge Plan Patient Name: TYLER TOVAR Facility: [facility]:[place] : 1950 Planned Disposition: Anticipated Discharge Date: Discharge Date: Expected LOS: Initial Reviewer: [id number] Initial Review Date: 10/06/2018 Generated: 10/17/18 10:08 am Comments DCP- Discharge Planning Updated by [id number]: Yamilet Grossman on 10/17/18 8:[address] Patient Name: TYLER TOVAR Admission Status: ER Accout number: [id number] Admission Date: 10-03-2018 : 1950 Admission Diagnosis:TYPE 2 DIABETES MELLITUS WITH FOOT ULCER Attending: CYNTHIA BOBBY Current LOS: 14 Anticipated DC Date: Planned Disposition: Primary Insurance: HUMANA CHOICE PPO [facility] ADVANT Discharge Planning Comments: SEPIDEH FROM [facility] CALLED AND STATES SHE TALKED TO PATIENT AND SHE WANTS TO SMOKE AND THEY ARE A NON SMOKING FACILITY. CM TO FOLLOW UP WITH DC PLANNING. Platform Man: Yamilet Grossman DCP- Discharge Planning Updated by [email or web address]: Yamilet Grossman on 10/16/18 10:[address] Patient Name: TYLER TOVAR Admission Status: ER Accout number: [id number] Admission Date: 10-03-2018 : 1950 Admission Diagnosis:TYPE 2 DIABETES MELLITUS WITH FOOT ULCER Attending: CYNTHIA BOBBY Current LOS: 13 Anticipated DC Date: Planned Disposition: Primary Insurance: HUMANA CHOICE PPO [facility] ADVANT Discharge Planning Comments: SPOKE WITH [facility] AND THEY WILL NOT ACCEPT PATIENT. CM SPOKE WITH [facility] AND THEY TAKE HUMANA INS., REFERRAL SENT TO THEM. RECIEVED HOLDEN APPROVAL AND FAXED IT TO [facility] ALSO. WAITING FOR CALL BACK. CM TO FOLLOW AND ASSIST. Platform Man: Yamilet Grossman DCP- Discharge Planning Updated by [id number]: Yamilet Grossman on 10/15/18 4:[address] Patient Name: TYLER TOVAR Admission Status: ER Accout number: [id number] Admission Date: 10-03-2018 : 1950 Admission Diagnosis:TYPE 2 DIABETES MELLITUS WITH FOOT ULCER Attending: CYNTHIA BOBBY Current LOS: 12 Anticipated DC Date: Planned Disposition: Primary Insurance: HUMANA CHOICE PPO [facility] ADVANT Discharge Planning Comments: CM SPOKE WITH PERICO AT THE [facility] AND SHE CAME OUT TO SEE PATIENT TODAY. HOLDEN WILL BE NEEDED. CM FAXED HOLDEN TODAY, WAITING FOR RESPONSE. PLAN IS FOR PATIENT TO GO TO [facility] FOR SNF IF ACCEPTED. CM TO FOLLOW AND ASSIST NEEDED WITH DC PLANNING/NEEDS. Platform Man: Yamilet Grossman DCP- Discharge Planning Updated by [id number]: Yamilet Grossman on 10/14/18 8:[address] Patient Name: TYLER TOVAR Admission Status: ER Accout number: [id number] Admission Date: 10-03-2018 : 1950 Admission Diagnosis:TYPE 2 DIABETES MELLITUS WITH FOOT ULCER Attending: CYNTHIA BOBBY Current LOS: 11 Anticipated DC Date: Planned Disposition: Primary Insurance: HUMANA CHOICE PPO [facility] ADVANT Discharge Planning Comments: CM WILL MEET WITH PATIENT TODAY AND BEGIN THE PROCESS OF SNF IF PATIENT WILL AGREE. Platform Man: Yamilet Grossman DCP- Discharge Planning Updated by [id number]: Lizett Forrester on 10/13/18 11:[address] CM RECEIVED TC AT 1058 FROM [facility]. PATIENT IS NOT PARTICIPATING WITH PHYSICAL THERAPY. PREAUTH UNLIKELY WITH HER INSURER DUE TO NONPARTICIPATION. TC TO PHYSICAL THERAPY TO DISCUSS PATIENT PROGRESS. WILL ALSO VISIT WITH THE PATIENT. ASHER HANSON, WITH DR SONG CALLED THIS AM STATING NURSING STAFF CAN START DAILY DRESSING CHANGES. DCP- Discharge Planning Updated by [id number]: Yamilet Grossman on 10/10/18 12:[address] Patient Name: TYLER TOVAR Admission Status: ER Accout number: [id number] Admission Date: 10-03-2018 : 1950 Admission Diagnosis:TYPE 2 DIABETES MELLITUS WITH FOOT ULCER Attending: CYNTHIA BOBBY Current LOS: 7 Anticipated DC Date: Planned Disposition: Primary Insurance: HUMANA CHOICE PPO M[facility] ADVANT Discharge Planning Comments: PATIENT WANTS [facility] WILL SUBMIT CLINICALS TO [facility] WHEN PATIENT IS MEDICALLY STABLE. Platform Man: Yamilet Grossman DCP- Discharge Planning Updated by [id number]: Yamilet Grossman on 10/06/18 11:[address] Patient Name: TYLER TOVAR Admission Status: ER Accout number: [id number] Admission Date: 10-03-2018 : 1950 Admission Diagnosis:TYPE 2 DIABETES MELLITUS WITH FOOT ULCER Attending: CYNTHIA BOBBY Current LOS: 3 Anticipated DC Date: Planned Disposition: Primary Insurance: HUMANA [employer] PPO Discharge Planning Comments: CM MET WITH PATIENT ABOUT DC PLANNING/NEEDS. PATIENT IS UNSURE OF DC PLAN. LIVES HOME ALONE, NO FAMILY. [facility] HAS A FRIEND NAMED CHITO THAT DOES HER SHOPPING AND OTHER THINGS FOR HER. SHE IS UNABLE TO AMBULATE. USES A WHEELCHAIR AT HOME AND TRANSFERS HERSELF FROM WHEELCHAIR TO CHAIR. THE CHART STATES SHE WILL PROB HAVE SURGERY ON HER FOOT SATURDAY. SHE MAY NEED SNF OR REHAB. AT THIS TIME SHE MAY BE TO LOW FUNCTION FOR IPREHAB. CM WILL FOLLOW AND ASSIST NEEDED WITH DC PLANNING/NEEDS. HOME ENVIRONMENT MAY NOT BE SAFE, RN SAID IT IS EXTREMELY DIRTY. Platform Man: Yamilettatyana Grossman DCPIA - Discharge Planning Initial Assessment Updated by [email or web address]: Yamilet Grossman on 10/06/18 12:17 pm * Is the patient Alert and Oriented? Yes * PCP NONE * [facility] * Preadmission Environment Home Alone * ADLs Partial Dependent * Partial ADLs (Assistance needed) Ambulation Bathing Dressing Toileting * Equipment Wheelchair * List name and contact numbers for known caregivers / representatives who currently or will assist patient after discharge: CHITO NATION, FRIEND, * Community resources currently utilized None * Additional services required to return to the preadmission environment? Yes * Can the patient safely return to the preadmission environment? No * Has this patient been hospitalized within the prior 30 days at any hospital? No Coverage Notice Reviewer: [id number] - Yamilet Grossman Notice Issued Date-Time: 10/14/2018 12:02 Notice Type: Patient Choice Letter Notice Delivered To: Patient Relationship to Patient: Self Yarn Winder Name: Delivery Method: HAND - Hand Delivered Laura Days: Prior Verbal Notification: Recipient Understood Notice: Yes Recipient Signature: Yes Med Rec Note Co-signed by Attending: Coverage Notice Comment: [facility] [address] Reviewer: [id number] Randal Grossman Notice Issued Date-Time: 10/17/2018 7:47 Notice Type: IM Discharge Notice Notice Delivered To: Patient Relationship to Patient: Self Yarn Winder Name: Delivery Method: HAND - Hand Delivered Laura Days: Prior Verbal Notification: Recipient Understood Notice: Yes Recipient Signature: Yes Med Rec Note Co-signed by Attending: Coverage Notice Comment: Last DP export: 10/16/18 4:27 pm Patient Name: TYLER TOVAR Page [id number] at 0909 All edits/amendments must be made on the electronic document DICTATION DATE: 10/17/18907 PASSENGER RATE CLERK: NINA 10/17/18907 RPT#: [id number] DC DATE: STATUS: ADM IN [facility] [address] [place] [address] END OF REPORT
[2018-10-17 11:22] VITALS: BP 145/82
--- NOTE | 2018-10-17 12:16 | NUR ---
OT NOTE: PT PERFORMED WELL TODAY, HOWEVER, VERY SOB WITH MINIMAL EXERTION. CHECK 02 SATS AND THEY WERE AT 95. PERFORMED BED MOB WITH MOD ASSIST; SIT TO STAND WITH WALKER AND MIN ASSIST X 2 TRIALS; STANDING TOLERANCE OF APPROX 2 MIN EACH TIME. PRACTICED BED MOB INCLUDING SIT TO SUPINE, ROLLING SIDE TO SIDE, AND SCOOTING UP IN BED WITH USE OF BED RAILS. PT ATTEMPTED TO COMB HAIR, BUT REPORTED THAT SHE COULD NOT GET KNOTS OUT OF BACK OF HAIR. SIMPLE GROOMING WITH SET UP. RADHA YOON, OTR/L
[2018-10-17] MEDS ORDERED: PROTONIX40 MG PO (14:22)
[2018-10-17] MEDS ORDERED: CHANTIX0.5 MG PO (14:22)
--- NOTE | 2018-10-17 14:47 | MORECARE ---
CASE MANAGEMENT DISCHARGE SUMMARY PATIENT: TYLER TOVAR UNIT: [id number] ADM DATE: 10/03/18 AGE: 68 : 51 SEX: F ROOM/BED: D.1213 AUTHOR: JENY,DOC PHYSICIAN: REFERRING PHYSICIAN: CYNTHIA MARTINEZ MD DATE OF SERVICE: 10/17/18 Discharge Plan Patient Name: TYLER TOVAR Facility: [facility]:[place] : 1950 Planned Disposition: Anticipated Discharge Date: Discharge Date: Expected LOS: Initial Reviewer: [id number] Initial Review Date: 10/06/2018 Generated: 10/17/18 3:47 pm Comments DCP- Discharge Planning Updated by [id number]: Bonny Hummel on 10/17/18 1:[address] CM spoke with Dr. Varela about patient not wanting to go to a facility that will not let her smoke. Dr. Varela stated she would talk with the patient about the need to stop smoking. CM then received a call from the nurse stating patient is now wanting to go to [place] and is willing to stop smoking. CM called [facility] spoke with Sepideh and ashwin Jones about patient willing to stop smoking and wanting to come to facility. Karen stated they would call patient to verify this info, and requested CM re-fax all clinical record as facility shredded it. Stated facility would start request for auth with patient's insurance today. CM will continue to follow and assist as needed with discharge planning / needs. DCP- Discharge Planning Updated by [id number]: Yamilet Grossman on 10/17/18 8:[address] Patient Name: TYLER TOVAR Admission Status: ER Accout number: [id number] Admission Date: 10-03-2018 : 1950 Admission Diagnosis:TYPE 2 DIABETES MELLITUS WITH FOOT ULCER Attending: CYNTHIA BOBBY Current LOS: 14 Anticipated DC Date: Planned Disposition: Primary Insurance: HUMANA CHOICE PPO M[employer] ADVANT Discharge Planning Comments: SEPIDEH FROM [facility] CALLED AND STATES SHE TALKED TO PATIENT AND SHE WANTS TO SMOKE AND THEY ARE A NON SMOKING FACILITY. CM TO FOLLOW UP WITH DC PLANNING. Credit Risk Associate: Yamilet Grossman DCP- Discharge Planning Updated by [email or web address]: Yamilet Grossman on 10/16/18 10:[address] Patient Name: TYLER TOVAR Admission Status: ER Accout number: [id number] Admission Date: 10-03-2018 : 1950 Admission Diagnosis:TYPE 2 DIABETES MELLITUS WITH FOOT ULCER Attending: CYNTHIA BOBBY Current LOS: 13 Anticipated DC Date: Planned Disposition: Primary Insurance: HUMANA CHOICE PPO [facility] ADVANT Discharge Planning Comments: SPOKE WITH THE [facility] AND THEY WILL NOT ACCEPT PATIENT. CM SPOKE WITH [facility] AND THEY TAKE HUMANA INS., REFERRAL SENT TO THEM. RECIEVED HOLDEN APPROVAL AND FAXED IT TO [facility] ALSO. WAITING FOR CALL BACK. CM TO FOLLOW AND ASSIST. Credit Risk Associate: Yamilet Grossman DCP- Discharge Planning Updated by [id number]: Yamilet Grossman on 10/15/18 4:[address] Patient Name: TYLER TOVAR Admission Status: ER Accout number: [id number] Admission Date: 10-03-2018 : 1950 Admission Diagnosis:TYPE 2 DIABETES MELLITUS WITH FOOT ULCER Attending: CYNTHIA BOBBY Current LOS: 12 Anticipated DC Date: Planned Disposition: Primary Insurance: HUMANA CHOICE PPO M[facility] ADVANT Discharge Planning Comments: CM SPOKE WITH PERICO AT THE [facility] AND SHE CAME OUT TO SEE PATIENT TODAY. HOLDEN WILL BE NEEDED. CM FAXED HOLDEN TODAY, WAITING FOR RESPONSE. PLAN IS FOR PATIENT TO GO TO THE [facility] FOR SNF IF ACCEPTED. CM TO FOLLOW AND ASSIST NEEDED WITH DC PLANNING/NEEDS. Credit Risk Associate: Yamilet Grossman DCP- Discharge Planning Updated by [id number]: Yamilet Grossman on 10/14/18 8:[address] Patient Name: TYLER TOVAR Admission Status: ER Accout number: [id number] Admission Date: 10-03-2018 : 1950 Admission Diagnosis:TYPE 2 DIABETES MELLITUS WITH FOOT ULCER Attending: CYNTHIA BOBBY Current LOS: 11 Anticipated DC Date: Planned Disposition: Primary Insurance: HUMANA CHOICE PPO MCR ADVANT Discharge Planning Comments: CM WILL MEET WITH PATIENT TODAY AND BEGIN THE PROCESS OF SNF IF PATIENT WILL AGREE. Credit Risk Associate: Yamilet Grossman DCP- Discharge Planning Updated by [email or web address]: Lizett Forrester on 10/13/18 11:[address] CM RECEIVED TC AT 1058 FROM [facility] REHAB. PATIENT IS NOT PARTICIPATING WITH PHYSICAL THERAPY. PREAUTH UNLIKELY WITH HER INSURER DUE TO NONPARTICIPATION. TC TO PHYSICAL THERAPY TO DISCUSS PATIENT PROGRESS. WILL ALSO VISIT WITH THE PATIENT. ASHER HANSON, WITH DR OSNG CALLED THIS AM STATING NURSING STAFF CAN START DAILY DRESSING CHANGES. DCP- Discharge Planning Updated by [id number]: Yamilet Grossman on 10/10/18 12:[address] Patient Name: TYLER TOVAR Admission Status: ER Accout number: [id number] Admission Date: 10-03-2018 : 1950 Admission Diagnosis:TYPE 2 DIABETES MELLITUS WITH FOOT ULCER Attending: CYNHTIA BOBBY Current LOS: 7 Anticipated DC Date: Planned Disposition: Primary Insurance: HUMANA [employer] PPO MCR ADVANT Discharge Planning Comments: PATIENT WANTS [facility] WILL SUBMIT CLINICALS TO [facility] WHEN PATIENT IS MEDICALLY STABLE. Credit Risk Associate: Yamilet Grossman DCP- Discharge Planning Updated by [id number]: Yamilet Grossman on 10/06/18 11:[address] Patient Name: TYLER TOVAR Admission Status: ER Accout number: [id number] Admission Date: 10-03-2018 : 1950 Admission Diagnosis:TYPE 2 DIABETES MELLITUS WITH FOOT ULCER Attending: CYNTHIA BOBBY Current LOS: 3 Anticipated DC Date: Planned Disposition: Primary Insurance: HUMANA [employer] PPO Discharge Planning Comments: CM MET WITH PATIENT ABOUT DC PLANNING/NEEDS. PATIENT IS UNSURE OF DC PLAN. LIVES HOME ALONE, NO FAMILY. HAS A FRIEND NAMED CHITO THAT DOES HER SHOPPING AND OTHER THINGS FOR HER. SHE IS UNABLE TO AMBULATE. USES A WHEELCHAIR AT HOME AND TRANSFERS HERSELF FROM WHEELCHAIR TO CHAIR. THE CHART STATES SHE WILL PROB HAVE SURGERY ON HER FOOT SATURDAY. SHE MAY NEED SNF OR REHAB. AT THIS TIME SHE MAY BE TO LOW FUNCTION FOR IPREHAB. CM WILL FOLLOW AND ASSIST NEEDED WITH DC PLANNING/NEEDS. HOME ENVIRONMENT MAY NOT BE SAFE, RN SAID IT IS EXTREMELY DIRTY. Credit Risk Associate: Yamilet Grossman DCPIA - Discharge Planning Initial Assessment Updated by [id number]: Yamilet Grossman on 10/06/18 12:17 pm * Is the patient Alert and Oriented? Yes * PCP NONE * [facility] * Preadmission Environment Home Alone * ADLs Partial Dependent * Partial ADLs (Assistance needed) Ambulation Bathing Dressing Toileting * Equipment Wheelchair * List name and contact numbers for known caregivers / representatives who currently or will assist patient after discharge: CHITO NATION, NAOMY, * Community resources currently utilized None * Additional services required to return to the preadmission environment? Yes * Can the patient safely return to the preadmission environment? No * Has this patient been hospitalized within the prior 30 days at any hospital? No Coverage Notice Reviewer: [id number] Randal Grossman Notice Issued Date-Time: 10/14/2018 12:02 Notice Type: Patient Choice Letter Notice Delivered To: Patient Relationship to Patient: Self Ios Developer Name: Delivery Method: HAND - Hand Delivered Laura Days: Prior Verbal Notification: Recipient Understood Notice: Yes Recipient Signature: Yes Med Rec Note Co-signed by Attending: Coverage Notice Comment: [facility] Reviewer: [id number] Randal Grossman Notice Issued Date-Time: 10/17/2018 7:47 Notice Type: IM Discharge Notice Notice Delivered To: Patient Relationship to Patient: Self Ios Developer Name: Delivery Method: HAND - Hand Delivered Laura Days: Prior Verbal Notification: Recipient Understood Notice: Yes Recipient Signature: Yes Med Rec Note Co-signed by Attending: Coverage Notice Comment: Last DP export: 10/17/18 8:08 am Patient Name: TYLER TOVAR Page [id number] at 1447 All edits/amendments must be made on the electronic document DICTATION DATE: 10/17/18 1446 HOOP RIVETER: NINA 10/17/18 1446 RPT#: [id number] DC DATE: STATUS: ADM IN [facility] [address] [place] [address] END OF REPORT
[2018-10-17 15:21] VITALS: BP 153/60
--- NOTE | 2018-10-17 19:33 | NUR ---
GREETED PATIENT AND INTRODUCED MYSELF HER NURSE FOR THE EVENING. PATIENT IS LAYING IN BED IN SUPINE POSITION. STATES PAIN LEVEL IS 0/10. DENIES ANY FURTHER NEEDS AT THIS TIME. CALL LIGHT IN REACH.
[2018-10-17 20:00] VITALS: BP 138/63
[2018-10-18 01:30] VITALS: BP 138/60
--- NOTE | 2018-10-18 01:30 | NUR ---
PT AWAKE, VS OBTAINED, PT STATES "I DO NOT WANT YOU TO WAKE ME UP FOR THE NEXT VITAL SIGNS", PT C/O THE ROOM BEING WARM, FAN PROVIDED, PT STATES "THANK YOU SO MUCH, THAT FEELS GREAT", PT DENIES FURTHER NEEDS
--- NOTE | 2018-10-18 05:34 | NUR ---
PATIENT AWAKE AND WATCHING TV. DENIES ANY NEEDS AT THIS TIME. CALL LIGHT IN REACH.
[2018-10-18 07:24] VITALS: BP 143/75
[2018-10-18 07:28] LABS: BASOPHILS 0.5 % (0-2); EOSINOPHILS 4.1 % (0-7); HEMATOCRIT 31.4 % (36.0-48.0); HEMOGLOBIN 9.9 g/dL (12-16); IMMATURE GRANULOCYTES 0.4 % (0-5); LYMPHOCYTES 23.6 % (15-50); MCH 27.3 pg (26.0-34.0); MCHC 31.5 g/dL (31.0-37.0); MCV 86.7 fL (80.0-100.0); MEAN PLATELET VOLUME 9.5 fL (7.4-10.4); MONOCYTES 5.6 % (2-11); NEUTROPHILS 65.8 % (40-80); PLATELET COUNT 344 10x3/uL (130-400); RBC 3.62 10x6/uL (4.00-5.40); RDW 14.2 % (11.5-14.5); WBC 7.9 10x3/uL (4.8-10.8)
--- NOTE | 2018-10-18 07:45 | NUR ---
ASSESSMENT COMPLETE. NO IV ACCESS. PARMAR PATENT DRAINING YELLOW URINE. COMPLAINING OF NAUSEA. COOL WASHCLOTH IN USE TO NECK. O2 3L NC IN USE. DRESSING INTACT TO RIGHT FOOT.
[2018-10-18 07:47] LABS: ALBUMIN 2.2 g/dL (3.4-5.0); ALKALINE PHOSPHATASE 62 U/L (46-116); ALT (SGPT) 14 U/L (10-68); BILIRUBIN - TOTAL 0.25 mg/dL (0.2-1.3); CALCIUM 8.6 mg/dL (8.5-10.1); CARBON DIOXIDE 29.6 mmol/L (21.0-32.0); CHLORIDE - SERUM 101 mmol/L (98-107); CREATININE - SERUM 0.6 mg/dL (0.6-1.3); PROTEIN - SERUM 7.4 g/dL (6.4-8.2); SODIUM 139 mmol/L (136-145); UREA NITROGEN 12 mg/dL (7-18); eGFR NON AFRICAN AMERICAN > 90 mL/min (90-120)
[2018-10-18 07:48] LABS: CALC OSMOLALITY 285 mosm/kg (275-300); GLUCOSE 244 mg/dL (74-106)
[2018-10-18 11:42] VITALS: BP 124/73
--- NOTE | 2018-10-18 13:09 | MORECARE ---
CASE MANAGEMENT DISCHARGE SUMMARY PATIENT: TYLER TOVAR UNIT: [id number] ADM DATE: 10/03/18 AGE: 68 : 51 SEX: F ROOM/BED: D.1213 AUTHOR: JENY,DOC PHYSICIAN: REFERRING PHYSICIAN: CYNTHIA MARTINEZ MD DATE OF SERVICE: 10/18/18 Discharge Plan Patient Name: TYLER TOVAR [facility] : 1950 Planned Disposition: Anticipated Discharge Date: Discharge Date: Expected LOS: Initial Reviewer: [id number] Initial Review Date: 10/06/2018 Generated: 10/18/18 2:09 pm Comments DCP- Discharge Planning Updated by [id number]: Lizett Forrester on 10/18/18 12:[address] CM SPOKE WITH MAXIME AT THE FACILITY. SHE CHECKED WITH NURSING STAFF REGARDING ADMISSION STATUS. DCP- Discharge Planning Updated by [id number]: Lizett Forrester on 10/18/18 12:[address] LATE ENTRY 1000 TC TO [facility] REGARDING STATUS OF ADMISSION DECISION. THEY ARE NOT EXPECTING TO ADMIT THE PATIENT TODAY. AWAIT AUTH. CM SPOKE WITH BRIAN, THE PRIMARY NURSE. SHE IS AWARE. CM WILL FOLLOW. DCP- Discharge Planning Updated by [id number]: Bonny Hummel on 10/17/18 1:[address] CM spoke with Dr. Varela about patient not wanting to go to a facility that will not let her smoke. Dr. Varela stated she would talk with the patient about the need to stop smoking. PRECIOUS then received a call from the nurse stating patient is now wanting to go to [place] and is willing to stop smoking. CM called [facility] spoke with Amy Jones about patient willing to stop smoking and wanting to come to facility. Karen stated they would call patient to verify this info, and requested CM re-fax all clinical record as facility shredded it. Stated facility would start request for auth with patient's insurance today. CM will continue to follow and assist as needed with discharge planning / needs. DCP- Discharge Planning Updated by [id number]: Yamilet Grossman on 10/17/18 8:[address] Patient Name: TYLER TOVAR Admission Status: ER Accout number: [id number] Admission Date: 10-03-2018 : 1950 Admission Diagnosis:TYPE 2 DIABETES MELLITUS WITH FOOT ULCER Attending: CYNTHIA BOBBY Current LOS: 14 Anticipated DC Date: Planned Disposition: Primary Insurance: [employer] CHOICE PPO [employer] ADVANT Discharge Planning Comments: SEPIDEH FROM [facility] CALLED AND STATES SHE TALKED TO PATIENT AND SHE WANTS TO SMOKE AND THEY ARE A NON SMOKING FACILITY. CM TO FOLLOW UP WITH DC PLANNING. Poly Area Supervisor: Yamilet Grossman DCP- Discharge Planning Updated by [id number]: Yamilet Grossman on 10/16/18 10:[address] Patient Name: TYLER TOVAR Admission Status: ER Accout number: [id number] Admission Date: 10-03-2018 : 1950 Admission Diagnosis:TYPE 2 DIABETES MELLITUS WITH FOOT ULCER Attending: CYNTHIA BOBBY Current LOS: 13 Anticipated DC Date: Planned Disposition: Primary Insurance: [employer] CHOICE PPO M[employer] ADVANT Discharge Planning Comments: SPOKE WITH THE [facility] AND THEY WILL NOT ACCEPT PATIENT. CM SPOKE WITH [facility] AND THEY TAKE HUMANA INS., REFERRAL SENT TO THEM. RECIEVED HOLDEN APPROVAL AND FAXED IT TO [facility] ALSO. WAITING FOR CALL BACK. CM TO FOLLOW AND ASSIST. Poly Area Supervisor: Yamilet Grossman DCP- Discharge Planning Updated by [id number]: Yamilet Grossman on 10/15/18 4:[address] Patient Name: TYLER TOVAR Admission Status: ER Accout number: [id number] Admission Date: 10-03-2018 : 1950 Admission Diagnosis:TYPE 2 DIABETES MELLITUS WITH FOOT ULCER Attending: CYNTHIA BOBBY Current LOS: 12 Anticipated DC Date: Planned Disposition: Primary Insurance: [employer] CHOICE PPO MCR ADVANT Discharge Planning Comments: CM SPOKE WITH PERICO AT THE [facility] AND SHE CAME OUT TO SEE PATIENT TODAY. HOLDEN WILL BE NEEDED. CM FAXED HOLDEN TODAY, WAITING FOR RESPONSE. PLAN IS FOR PATIENT TO GO TO THE [facility] FOR SNF IF ACCEPTED. CM TO FOLLOW AND ASSIST NEEDED WITH DC PLANNING/NEEDS. Poly Area Supervisor: Yamilet Grossman DCP- Discharge Planning Updated by [id number]: Yamilet Grossman on 10/14/18 8:[address] Patient Name: TYLER TOVAR Admission Status: ER Accout number: [id number] Admission Date: 10-03-2018 : 1950 Admission Diagnosis:TYPE 2 DIABETES MELLITUS WITH FOOT ULCER Attending: CYNTHIA BOBBY Current LOS: 11 Anticipated DC Date: Planned Disposition: Primary Insurance: [employer] CHOICE PPO MCR ADVANT Discharge Planning Comments: CM WILL MEET WITH PATIENT TODAY AND BEGIN THE PROCESS OF SNF IF PATIENT WILL AGREE. Poly Area Supervisor: Yamilet Grossman DCP- Discharge Planning Updated by [id number]: Lizett Forrester on 10/13/18 11:[address] CM RECEIVED TC AT 1058 FROM [facility]/ REHAB. PATIENT IS NOT PARTICIPATING WITH PHYSICAL THERAPY. PREAUTH UNLIKELY WITH HER INSURER DUE TO NONPARTICIPATION. TC TO PHYSICAL THERAPY TO DISCUSS PATIENT PROGRESS. WILL ALSO VISIT WITH THE PATIENT. ASHER HANSON, WITH DR SONG CALLED THIS AM STATING NURSING STAFF CAN START DAILY DRESSING CHANGES. DCP- Discharge Planning Updated by [id number]: Yamilet Grossman on 10/10/18 12:[address] Patient Name: TYLER TOVAR Admission Status: ER Accout number: [id number] Admission Date: 10-03-2018 : 1950 Admission Diagnosis:TYPE 2 DIABETES MELLITUS WITH FOOT ULCER Attending: CYNTHIA BOBBY Current LOS: 7 Anticipated DC Date: Planned Disposition: Primary Insurance: [employer]NA CHOICE PPO [facility] ADVANT Discharge Planning Comments: PATIENT WANTS [facility] WILL SUBMIT CLINICALS TO [facility] WHEN PATIENT IS MEDICALLY STABLE. Poly Area Supervisor: Yamilet Grossman DCP- Discharge Planning Updated by [id number]: Yamilet Grossman on 10/06/18 11:[address] Patient Name: TYLER TOVAR Admission Status: ER Accout number: [id number] Admission Date: 10-03-2018 : 1950 Admission Diagnosis:TYPE 2 DIABETES MELLITUS WITH FOOT ULCER Attending: CYNTHIA BOBBY Current LOS: 3 Anticipated DC Date: Planned Disposition: [facility] Discharge Planning Comments: CM MET WITH PATIENT ABOUT DC PLANNING/NEEDS. PATIENT IS UNSURE OF DC PLAN. LIVES HOME ALONE, NO FAMILY. HAS A FRIEND NAMED CHITO THAT DOES HER SHOPPING AND OTHER THINGS FOR HER. SHE IS UNABLE TO AMBULATE. USES A WHEELCHAIR AT HOME AND TRANSFERS HERSELF FROM WHEELCHAIR TO CHAIR. THE CHART STATES SHE WILL PROB HAVE SURGERY ON HER FOOT SATURDAY. SHE MAY NEED SNF OR REHAB. AT THIS TIME SHE MAY BE TO LOW FUNCTION FOR IPREHAB. CM WILL FOLLOW AND ASSIST NEEDED WITH DC PLANNING/NEEDS. HOME ENVIRONMENT MAY NOT BE SAFE, RN SAID IT IS EXTREMELY DIRTY. Poly Area Supervisor: Yamilet Grossman DCPIA - Discharge Planning Initial Assessment Updated by [id number]: Yamilet Grossman on 10/06/18 12:17 pm * Is the patient Alert and Oriented? Yes * PCP NONE * [facility] * Preadmission Environment Home Alone * ADLs Partial Dependent * Partial ADLs (Assistance needed) Ambulation Bathing Dressing Toileting * Equipment Wheelchair * List name and contact numbers for known caregivers / representatives who currently or will assist patient after discharge: CHITO NATION, FRIEND, * Community resources currently utilized None * Additional services required to return to the preadmission environment? Yes * Can the patient safely return to the preadmission environment? No * Has this patient been hospitalized within the prior 30 days at any hospital? No Coverage Notice Reviewer: [id number] Randal Grossman Notice Issued Date-Time: 10/14/2018 12:02 Notice Type: Patient Choice Letter Notice Delivered To: Patient Relationship to Patient: Self Quality Control Specialist Name: Delivery Method: HAND - Hand Delivered Laura Days: Prior Verbal Notification: Recipient Understood Notice: Yes Recipient Signature: Yes Med Rec Note Co-signed by Attending: Coverage Notice Comment: [facility]/ [facility] Reviewer: [id number] Randal Grossman Notice Issued Date-Time: 10/17/2018 7:47 Notice Type: IM Discharge Notice Notice Delivered To: Patient Relationship to Patient: Self Quality Control Specialist Name: Delivery Method: HAND - Hand Delivered Laura Days: Prior Verbal Notification: Recipient Understood Notice: Yes Recipient Signature: Yes Med Rec Note Co-signed by Attending: Coverage Notice Comment: Last DP export: 10/17/18 1:47 pm Patient Name: TYLER TOVAR Page 13400 at 1309 All edits/amendments must be made on the electronic document DICTATION DATE: 10/18/18 1309 DIRECTOR PROCESS IMPROVEMENT: NINA 10/18/18 1309 RPT#: [id number] DC DATE: STATUS: ADM IN [facility] [address] [place] [address] END OF REPORT
[2018-10-18 15:20] VITALS: BP 150/67
--- NOTE | 2018-10-18 17:05 | NUR ---
SITTING ON SIDE OF BED EATING DINNER. DENIES ANY NEEDS AT THIS TIME.
--- NOTE | 2018-10-18 19:19 | NUR ---
PT ALERT WATCHING TV. PARMAR DRAINING WITH YELLOW URINE. PT STATES NO PAIN. LLE HAS DRESSING. SPOKE WITH PT ABOUT DRESSING CHANGES. PT AGREED FOR WOUND CARE TO BE COMPLETED TONIGHT. DENIES ANY OTHER NEEDS AT THIS TIME. CALL LIGHT IN REACH. WILL CONTINUE PLAN OF CARE.
[2018-10-18 21:35] VITALS: BP 163/85
--- NOTE | 2018-10-18 22:07 | NUR ---
WOUND CARE PROVIDED ORDERED. BLOOD SURGAR 322. PT STATED "IT WAS ALL THE CHOCOLATE SYRUP I JUST ATE." EDUCATED PT ABOUT DIABETES AND WOUND CARE AND PT STATED "I DONT WANT TO HEAR THIS. IT WAS WORTH IT." ASSISTED PT WITH BED SAUCEDA. VERY SMALL BM. CLEANED AND REPOSITIONED IN BED. VITALS ASSESSED AND IN FLOW SHEET. CALL LIGHT IN REACH.
--- NOTE | 2018-10-18 23:50 | NUR ---
I AGREE WITH THE SUSTAINABILITY COORDINATOR ASSESSMENT CHARTED THIS SHIFT.
[2018-10-19 04:00] VITALS: BP 153/60
--- NOTE | 2018-10-19 06:32 | NUR ---
VS IN CHART. TOLERATED AM MEDS. DENIES FURTHER NEEDS.
--- NOTE | 2018-10-19 07:30 | NUR ---
PT RESTING IN BED, EYES OPEN. PT ALERT AND ORIENTED. INCONINENT OF BOWEL. PARMAR CATHETER PRESENT. 1/2 TOE AMPUTATION TO RIGHT FOOT. EXCORIATION TO BUTTOCKS, APPLIED CALMOSEPTINE OINTMENT. PT ACHS, HIGH RESISTANCE SCALE. PT ON CHANTIX. NO C/O PAIN. NO S/S OF ACUTE DISTRESS NOTED. CALL LIGHT IN REACH. PT DENIES ANYTHING FURTHER AT THIS TIME. WILL CONTINUE TO MONITOR.
[2018-10-19 07:40] LABS: BASOPHILS 0.5 % (0-2); EOSINOPHILS 5.5 % (0-7); HEMATOCRIT 32.6 % (36.0-48.0); HEMOGLOBIN 10.3 g/dL (12-16); IMMATURE GRANULOCYTES 0.4 % (0-5); LYMPHOCYTES 25.1 % (15-50); MCH 27.5 pg (26.0-34.0); MCHC 31.6 g/dL (31.0-37.0); MCV 86.9 fL (80.0-100.0); MONOCYTES 7.5 % (2-11); PLATELET COUNT 359 10x3/uL (130-400); RBC 3.75 10x6/uL (4.00-5.40); RDW 14.3 % (11.5-14.5); WBC 8.4 10x3/uL (4.8-10.8)
[2018-10-19 07:57] LABS: ALBUMIN 2.3 g/dL (3.4-5.0); ALKALINE PHOSPHATASE 62 U/L (46-116); BILIRUBIN - TOTAL 0.28 mg/dL (0.2-1.3); CALCIUM 8.6 mg/dL (8.5-10.1); CARBON DIOXIDE 29.1 mmol/L (21.0-32.0); CHLORIDE - SERUM 102 mmol/L (98-107); CREATININE - SERUM 0.6 mg/dL (0.6-1.3); POTASSIUM - SERUM 3.6 mmol/L (3.5-5.1); PROTEIN - SERUM 7.5 g/dL (6.4-8.2); SODIUM 141 mmol/L (136-145); UREA NITROGEN 11 mg/dL (7-18); eGFR NON AFRICAN AMERICAN > 90 mL/min (90-120)
[2018-10-19 08:00] VITALS: BP 113/62
[2018-10-19 08:01] LABS: ALT (SGPT) 18 U/L (10-68); CALC OSMOLALITY 281 mosm/kg (275-300); GLUCOSE 140 mg/dL (74-106)
[2018-10-19 11:02] VITALS: BP 113/62
--- NOTE | 2018-10-19 18:15 | NUR ---
CHANGED DRESSING TO RIGHT FOOT. BIG TOE PARTIAL AMPUTATION. NO DRAINAGE OR REDNESS PRESENT. APPLIED XEROFORM, 4X4, KERLEX ZULEMA TO BIG TOE/FOOT. PT DENIES ANYTHING FURTHER. CALL LIGHT IN REACH. WILL CONTINUE TO MONITOR.
[2018-10-19 18:26] VITALS: BP 145/62
--- NOTE | 2018-10-19 18:58 | NUR ---
PT RESTING IN BED, EYES OPEN. NO C/O PAIN. NO S/S OF ACUTE DISTRESS NOTED. CALL LIGHT IN REACH. PT DENIES ANYTHING FURTHER AT THIS TIME. WILL CONTINUE TO MONITOR.
--- NOTE | 2018-10-19 19:00 | NUR ---
I have reviewed this patient and I concur with the Shift Assessment completed by the Licensed Practical Nurse today this shift.
--- NOTE | 2018-10-19 19:04 | NUR ---
I have reviewed this patient and I concur with the Shift Assessment completed by the Licensed Practical Nurse today this shift.
--- NOTE | 2018-10-19 19:51 | NUR ---
RECIEVED BEDSIDE REPORT. VSS, AAOX2, PT SLEEPY BUT AROUSE TO VOICE. SHE APPEARS TO BE IN NO DISTRESS. STATES THAT SHE WILL LIKE TO GET SOME REST. PT HAVE BANDAGE ON THE RIGHT FOOT. DRESSING C/D/I. WILL CPOC. CL IN REACH, BED IN LOW, SR UP X2.
[2018-10-19 20:01] VITALS: BP 144/57
[2018-10-20 01:06] VITALS: BP 140/60
[2018-10-20 04:00] VITALS: BP 140/64
[2018-10-20 07:54] VITALS: BP 130/66
[2018-10-20 08:05] LABS: BASOPHILS 0.6 % (0-2); EOSINOPHILS 5.5 % (0-7); HEMATOCRIT 32.5 % (36.0-48.0); HEMOGLOBIN 10.2 g/dL (12-16); IMMATURE GRANULOCYTES 0.4 % (0-5); LYMPHOCYTES 23.5 % (15-50); MCH 27.4 pg (26.0-34.0); MCHC 31.4 g/dL (31.0-37.0); MCV 87.4 fL (80.0-100.0); MEAN PLATELET VOLUME 9.9 fL (7.4-10.4); MONOCYTES 7.8 % (2-11); NEUTROPHILS 62.2 % (40-80); PLATELET COUNT 350 10x3/uL (130-400); RBC 3.72 10x6/uL (4.00-5.40); RDW 14.6 % (11.5-14.5); WBC 8.1 10x3/uL (4.8-10.8)
[2018-10-20 08:11] LABS: ALBUMIN 2.3 g/dL (3.4-5.0); ALKALINE PHOSPHATASE 61 U/L (46-116); ALT (SGPT) 17 U/L (10-68); BILIRUBIN - TOTAL 0.22 mg/dL (0.2-1.3); CALC OSMOLALITY 283 mosm/kg (275-300); CARBON DIOXIDE 33.7 mmol/L (21.0-32.0); CHLORIDE - SERUM 103 mmol/L (98-107); CREATININE - SERUM 0.6 mg/dL (0.6-1.3); GLUCOSE 178 mg/dL (74-106); POTASSIUM - SERUM 3.8 mmol/L (3.5-5.1); PROTEIN - SERUM 7.3 g/dL (6.4-8.2); SODIUM 141 mmol/L (136-145); UREA NITROGEN 11 mg/dL (7-18); eGFR NON AFRICAN AMERICAN > 90 mL/min (90-120)
--- NOTE | 2018-10-20 08:30 | NUR ---
PT RESTING IN BED. SHIFT ASSESSMENT PERFORMED. AM MEDS GIVEN ORDERED. DENIES ANY PAIN AT THIS TIME, DENIES ANY OTHER NEEDS AT THIS TIME. WILL CONT TO FOLLOW PLAN OF CARE
--- NOTE | 2018-10-20 10:32 | NUR ---
Nutrition Follow Up: Chart reviewed Diet: ADA PO Intake: 100% meal avg BM: 10/19/18 Labs reviewed - Glucose elevated Meds noted including Humulin Rec continue current diet. RD following.
[2018-10-20 11:17] VITALS: BP 157/55
[2018-10-20 15:28] VITALS: BP 164/68
--- NOTE | 2018-10-20 16:17 | NUR ---
PARMAR CATHETER REMOVED WITH CATHETER TIP INTACT PER NURSE DRIVEN PROTOCOL. PT IS UPSET THAT SHE NOW HAS TO GET UP TO GO TO THE RESTROOM. PROVIDED PT WITH A BEDSIDE COMMODE. PT IS STILL UPSET. EDUCATED PROVIDED ON CAUTI PREVENTION.
--- NOTE | 2018-10-20 17:19 | NUR ---
OT NOTE: PT COMPLETED BED MOB WITH MIN/MOD A. PT COMPLETED SIT TO STAND WITH MIN A. PT COMPLETED BUE AROM AXS. THANK YOU, GILES PACE
[2018-10-20 21:01] VITALS: BP 129/70
--- NOTE | 2018-10-20 21:45 | NUR ---
PT FSBS 241, 8 UNITS HUMULIN R GIVEN. CALL LIGHT IN REACH.
--- NOTE | 2018-10-21 01:31 | NUR ---
PT LINEN WET, CHANGED LINEN. CALL LIGHT IN REACH.
[2018-10-21 02:05] VITALS: BP 151/53
--- NOTE | 2018-10-21 02:27 | NUR ---
REST IN BED, RESP EVEN, NO DISTRESS, CALL LIGHT IN REACH.
--- NOTE | 2018-10-21 04:45 | NUR ---
I have reviewed this patient and I concur with the Shift Assessment completed by the Licensed Practical Nurse today this shift.
--- NOTE | 2018-10-21 07:35 | NUR ---
PT RESTING IN BED, EYES OPEN. NO C/O PAIN. NO S/S OF ACUTE DISTRESS NOTED. PT WET THE BED, THIS NURSE CHANGED ALL BED LINENS AND CLEANED UP PT. APPLIED CALMOSEPTINE TO BUTTOCKS. PT ALERT AND ORIENTED. PT ON 2L O2, NC. PT UP WITH PHYSICAL THERAPY. BEDSIDE COMMODE IN ROOM. PT ACHS. RIGHT FOOT BIG TOE 1/2 AMPUTATION. DRESSING C/D/I. PT DENIES ANYTHING FURTHER AT THIS TIME. CALL LIGHT IN REACH. WILL CONTINUE TO MONITOR.
[2018-10-21 07:56] LABS: BASOPHILS 0.5 % (0-2); EOSINOPHILS 5.2 % (0-7); HEMATOCRIT 35.4 % (36.0-48.0); HEMOGLOBIN 11.1 g/dL (12-16); IMMATURE GRANULOCYTES 0.4 % (0-5); LYMPHOCYTES 24.9 % (15-50); MCH 27.5 pg (26.0-34.0); MCHC 31.4 g/dL (31.0-37.0); MCV 87.6 fL (80.0-100.0); MEAN PLATELET VOLUME 9.8 fL (7.4-10.4); MONOCYTES 7.1 % (2-11); NEUTROPHILS 61.9 % (40-80); PLATELET COUNT 375 10x3/uL (130-400); RBC 4.04 10x6/uL (4.00-5.40); RDW 14.4 % (11.5-14.5); WBC 8.5 10x3/uL (4.8-10.8)
[2018-10-21 08:08] VITALS: BP 172/84
[2018-10-21 08:23] LABS: ALBUMIN 2.6 g/dL (3.4-5.0); ALKALINE PHOSPHATASE 62 U/L (46-116); BILIRUBIN - TOTAL 0.26 mg/dL (0.2-1.3); CALC OSMOLALITY 282 mosm/kg (275-300); CALCIUM 9.3 mg/dL (8.5-10.1); CARBON DIOXIDE 32.5 mmol/L (21.0-32.0); CHLORIDE - SERUM 99 mmol/L (98-107); CREATININE - SERUM 0.7 mg/dL (0.6-1.3); GLUCOSE 168 mg/dL (74-106); POTASSIUM - SERUM 3.5 mmol/L (3.5-5.1); PROTEIN - SERUM 8.2 g/dL (6.4-8.2); SODIUM 140 mmol/L (136-145); UREA NITROGEN 12 mg/dL (7-18); eGFR NON AFRICAN AMERICAN 88 mL/min (90-120)
[2018-10-21 08:30] LABS: ALT (SGPT) 22 U/L (10-68)
--- NOTE | 2018-10-21 11:22 | MORECARE ---
CASE MANAGEMENT DISCHARGE SUMMARY PATIENT: TYLER TOVAR UNIT: [id number] ADM DATE: 10/03/18 AGE: 68 : 51 SEX: F ROOM/BED: D.1213 AUTHOR: JENY,DOC PHYSICIAN: REFERRING PHYSICIAN: CYNTHIA MARTINEZ MD DATE OF SERVICE: 10/21/18 Discharge Plan Patient Name: TYLER TOVAR Facility: [facility]:[place] : 1950 Planned Disposition: Anticipated Discharge Date: Discharge Date: Expected LOS: Initial Reviewer: [id number] Initial Review Date: 10/06/2018 Generated: 10/21/18 12:22 pm Comments DCP- Discharge Planning Updated by [id number]: Bonny Hummel on 10/21/18 10:[address] CM received call from Sepideh with [facility] (Medicare Bed). Patient has been accepted and auth has been obtained from insurance company for SNF. CM called and notified patient's nurse and Dr. Torres. CM informed patient. Explained and served DC IMM. Per patient's request, CM called and notified [facility]. Patient verbalized understanding and satisfaction with DC plan. DCP- Discharge Planning Updated by [id number]: Lizett Forrester on 10/18/18 11:[address] CM SPOKE WITH MAXIME AT THE FACILITY. SHE CHECKED WITH NURSING STAFF REGARDING ADMISSION STATUS. DCP- Discharge Planning Updated by [id number]: Lizett Forrester on 10/18/18 11:[address] LATE ENTRY 1000 TC TO [facility] REGARDING STATUS OF ADMISSION DECISION. THEY ARE NOT EXPECTING TO ADMIT THE PATIENT TODAY. AWAIT AUTH. PRECIOUS SPOKE WITH BRIAN, THE PRIMARY NURSE. SHE IS AWARE. CM WILL FOLLOW. DCP- Discharge Planning Updated by [id number]: Bonny Hummel on 10/17/18 12:[address] CM spoke with Dr. Varela about patient not wanting to go to a facility that will not let her smoke. Dr. Varela stated she would talk with the patient about the need to stop smoking. PRECIOUS then received a call from the nurse stating patient is now wanting to go to [place] and is willing to stop smoking. PRECIOUS called [facility] spoke with Amy Jones about patient willing to stop smoking and wanting to come to facility. Karen stated they would call patient to verify this info, and requested CM re-fax all clinical record as facility shredded it. Stated facility would start request for auth with patient's insurance today. CM will continue to follow and assist as needed with discharge planning / needs. DCP- Discharge Planning Updated by [id number]: Yamilet Grossman on 10/17/18 7:[address] Patient Name: TYLER TOVAR Admission Status: ER Accout number: [id number] Admission Date: 10-03-2018 : 1950 Admission Diagnosis:TYPE 2 DIABETES MELLITUS WITH FOOT ULCER Attending: CYNTHIA BOBBY Current LOS: 14 Anticipated DC Date: Planned Disposition: Primary Insurance: [employer] CHOICE PPO M[employer] ADVANT Discharge Planning Comments: SEPIDEH FROM [facility] CALLED AND STATES SHE TALKED TO PATIENT AND SHE WANTS TO SMOKE AND THEY ARE A NON SMOKING FACILITY. CM TO FOLLOW UP WITH DC PLANNING. Director Of Compensation: Yamilet Grossman DCP- Discharge Planning Updated by [id number]: Yamilet Grossman on 10/16/18 9:[address] Patient Name: TYLER TOVAR Admission Status: ER Accout number: [id number] Admission Date: 10-03-2018 : 1950 Admission Diagnosis:TYPE 2 DIABETES MELLITUS WITH FOOT ULCER Attending: CYNTHIA BOBBY Current LOS: 13 Anticipated DC Date: Planned Disposition: Primary Insurance: [employer] CHOICE PPO M[employer] ADVANT Discharge Planning Comments: SPOKE WITH [facility] AND THEY WILL NOT ACCEPT PATIENT. CM SPOKE WITH [facility] AND THEY TAKE HUMANA INS., REFERRAL SENT TO THEM. RECIEVED [place] APPROVAL AND FAXED IT TO [facility] ALSO. WAITING FOR CALL BACK. CM TO FOLLOW AND ASSIST. Director Of Compensation: Yamilet Grossman DCP- Discharge Planning Updated by [id number]: Yamilet Grossman on 10/15/18 3:[address] Patient Name: TYLER TOVAR Admission Status: ER Accout number: [id number] Admission Date: 10-03-2018 : 1950 Admission Diagnosis:TYPE 2 DIABETES MELLITUS WITH FOOT ULCER Attending: CYNTHIA BOBBY Current LOS: 12 Anticipated DC Date: Planned Disposition: Primary Insurance: [employer] CHOICE PPO MCR ADVANT Discharge Planning Comments: CM SPOKE WITH PERICO AT THE [facility] AND SHE CAME OUT TO SEE PATIENT TODAY. HOLDEN WILL BE NEEDED. CM FAXED HOLDEN TODAY, WAITING FOR RESPONSE. PLAN IS FOR PATIENT TO GO TO THE [facility] FOR SNF IF ACCEPTED. CM TO FOLLOW AND ASSIST NEEDED WITH DC PLANNING/NEEDS. Director Of Compensation: Yamilet Grossman DCP- Discharge Planning Updated by [id number]: Yamilet Grossman on 10/14/18 7:[address] Patient Name: TYLER TOVAR Admission Status: ER Accout number: [id number] Admission Date: 10-03-2018 : 1950 Admission Diagnosis:TYPE 2 DIABETES MELLITUS WITH FOOT ULCER Attending: CYNTHIA OBBBY Current LOS: 11 Anticipated DC Date: Planned Disposition: Primary Insurance: HUMANA CHOICE PPO [facility] ADVANT Discharge Planning Comments: CM WILL MEET WITH PATIENT TODAY AND BEGIN THE PROCESS OF SNF IF PATIENT WILL AGREE. Director Of Compensation: Yamilet Grossman DCP- Discharge Planning Updated by [id number]: Lizett Forrester on 10/13/18 10:[address] CM RECEIVED TC AT 1058 FROM [facility]/ REHAB. PATIENT IS NOT PARTICIPATING WITH PHYSICAL THERAPY. PREAUTH UNLIKELY WITH HER INSURER DUE TO NONPARTICIPATION. TC TO PHYSICAL THERAPY TO DISCUSS PATIENT PROGRESS. WILL ALSO VISIT WITH THE PATIENT. ASHER HANSON, WITH DR SONG CALLED THIS AM STATING NURSING STAFF CAN START DAILY DRESSING CHANGES. DCP- Discharge Planning Updated by [id number]: Yamilet Grossman on 10/10/18 11:[address] Patient Name: TYLER TOVAR Admission Status: ER Accout number: [id number] Admission Date: 10-03-2018 : 1950 Admission Diagnosis:TYPE 2 DIABETES MELLITUS WITH FOOT ULCER Attending: CYNTHIA BOBBY Current LOS: 7 Anticipated DC Date: Planned Disposition: Primary Insurance: [employer]MANA CHOICE PPO [facility] ADVANT Discharge Planning Comments: PATIENT WANTS [facility] WILL SUBMIT CLINICALS TO [facility] WHEN PATIENT IS MEDICALLY STABLE. Director Of Compensation: Yamilet Grossman DCP- Discharge Planning Updated by [id number]: Yamilet Grossman on 10/06/18 10:[address] Patient Name: TYLER TOVAR Admission Status: ER Accout number: [id number] Admission Date: 10-03-2018 : 1950 Admission Diagnosis:TYPE 2 DIABETES MELLITUS WITH FOOT ULCER Attending: CYNTHIA BOBBY Current LOS: 3 Anticipated DC Date: Planned Disposition: Primary Insurance: [employer] PPO Discharge Planning Comments: CM MET WITH PATIENT ABOUT DC PLANNING/NEEDS. PATIENT IS UNSURE OF DC PLAN. LIVES HOME ALONE, NO FAMILY. HAS A FRIEND NAMED CHARBEL THAT DOES HER SHOPPING AND OTHER THINGS FOR HER. SHE IS UNABLE TO AMBULATE. USES A WHEELCHAIR AT HOME AND TRANSFERS HERSELF FROM WHEELCHAIR TO CHAIR. THE CHART STATES SHE WILL PROB HAVE SURGERY ON HER FOOT SATURDAY. SHE MAY NEED SNF OR REHAB. AT THIS TIME SHE MAY BE TO LOW FUNCTION FOR IPREHAB. CM WILL FOLLOW AND ASSIST NEEDED WITH DC PLANNING/NEEDS. HOME ENVIRONMENT MAY NOT BE SAFE, RN SAID IT IS EXTREMELY DIRTY. Director Of Compensation: Yamilet Grossman DCPIA - Discharge Planning Initial Assessment Updated by [id number]: Yamilet Grossman on 10/06/18 12:17 pm * Is the patient Alert and Oriented? Yes * PCP NONE * [facility] * Preadmission Environment Home Alone * ADLs Partial Dependent * Partial ADLs (Assistance needed) Ambulation Bathing Dressing Toileting * Equipment Wheelchair * List name and contact numbers for known caregivers / representatives who currently or will assist patient after discharge: CHARBEL NATION, FRIEND, * Community resources currently utilized None * Additional services required to return to the preadmission environment? Yes * Can the patient safely return to the preadmission environment? No * Has this patient been hospitalized within the prior 30 days at any hospital? No Coverage Notice Reviewer: [id number] Randal Grossman Notice Issued Date-Time: 10/14/2018 12:02 Notice Type: Patient Choice Letter Notice Delivered To: Patient Relationship to Patient: Self Dietitian Teacher Name: Delivery Method: HAND - Hand Delivered Laura Days: Prior Verbal Notification: Recipient Understood Notice: Yes Recipient Signature: Yes Med Rec Note Co-signed by Attending: Coverage Notice Comment: JESÚS Jaeger snf Reviewer: [id number] Randal Grossman Notice Issued Date-Time: 10/17/2018 7:47 Notice Type: IM Discharge Notice Notice Delivered To: Patient Relationship to Patient: Self Dietitian Teacher Name: Delivery Method: HAND - Hand Delivered Laura Days: Prior Verbal Notification: Recipient Understood Notice: Yes Recipient Signature: Yes Med Rec Note Co-signed by Attending: Coverage Notice Comment: Reviewer: [id number] Randal Hummel Notice Issued Date-Time: 10/21/2018 11:05 Notice Type: IM Discharge Notice Notice Delivered To: Patient Relationship to Patient: Self Dietitian Teacher Name: Delivery Method: HAND - Hand Delivered Laura Days: Prior Verbal Notification: Recipient Understood Notice: Yes Recipient Signature: Yes Med Rec Note Co-signed by Attending: Coverage Notice Comment: Last DP export: 10/18/18 11:09 am Patient Name: TYLER TOVAR Page 13007 at 1122 All edits/amendments must be made on the electronic document DICTATION DATE: 10/21/181120 ANODIZE MACHINE OPERATOR: NINA 10/21/181120 RPT#: [id number] DC DATE: STATUS: ADM IN [facility] [address] [place] [address] END OF REPORT
[2018-10-21] MEDS ORDERED: HUMULIN R100 U/ML SC (11:23)
--- NOTE | 2018-10-21 14:37 | NUR ---
[facility] T[facility] TO NINFA.
--- NOTE | 2018-10-21 15:22 | NUR ---
PT DISCHARGED TO [facility] WITH SNF STAFF VIA WHEELCHAIR. WENT OVER DISCHARGE INSTRUCTIONS WITH PT, PT ACKNOWLEDGED. PT DENIES ANYTHING FURTHER. NO C/O PAIN. NO S/S OF ACUTE DISTRESS NOTED.
--- NOTE | 2018-10-21 15:31 | MORECARE ---
CASE MANAGEMENT DISCHARGE SUMMARY PATIENT: TYLER TOVAR UNIT: [id number] ADM DATE: 10/03/18 AGE: 68 : 51 SEX: F ROOM/BED: D.1213 AUTHOR: JENY,DOC PHYSICIAN: REFERRING PHYSICIAN: CYNTHIA MARTINEZ MD DATE OF SERVICE: 10/21/18 Discharge Plan Patient Name: [facility]YLER [facility]OVAR [facility] [facility] 1950 Planned Disposition: Anticipated Discharge Date: Discharge Date: 10/21/2018 Expected LOS: Initial Reviewer: [email or web address] Initial Review Date: 10/06/2018 Generated: 10/21/18 4:31 pm Comments DCP- Discharge Planning Updated by [id number]: Bonny Hummel on 10/21/18 10:[address] CM received call from Sepideh with [facility] (Medicare Bed). Patient has been accepted and auth has been obtained from insurance Proviation for SNF. CM called and notified patient's nurse and Dr. Torres. CM informed patient. Explained and served DC IMM. Per patient's request, CM called and notified [facility]. Patient verbalized understanding and satisfaction with DC plan. DCP- Discharge Planning Updated by [id number]: Lizett Forrester on 10/18/18 11:[address] CM SPOKE WITH MAXIME AT THE FACILITY. SHE CHECKED WITH NURSING STAFF REGARDING ADMISSION STATUS. DCP- Discharge Planning Updated by [email or web address]: Lizett Forrester on 10/18/18 11:[address] LATE ENTRY [address] [facility] REGARDING STATUS OF ADMISSION DECISION. THEY ARE NOT EXPECTING TO ADMIT THE PATIENT TODAY. AWAIT AUTH. PRECIOUS SPOKE WITH BRIAN, THE PRIMARY NURSE. SHE IS AWARE. CM WILL FOLLOW. DCP- Discharge Planning Updated by [id number]: Bonny Hmumel on 10/17/18 12:[address] CM spoke with Dr. Varela about patient not wanting to go to a facility that will not let her smoke. Dr. Varela stated she would talk with the patient about the need to stop smoking. PRECIOUS then received a call from the nurse stating patient is now wanting to go to [place] and is willing to stop smoking. PRECIOUS called [facility] spoke with Sepideh and ashwin Jones about patient willing to stop smoking and wanting to come to facility. Karen stated they would call patient to verify this info, and requested CM re-fax all clinical record as facility shredded it. Stated facility would start request for auth with patient's insurance today. CM will continue to follow and assist as needed with discharge planning / needs. DCP- Discharge Planning Updated by [id number]: Yamilet Grossman on 10/17/18 7:[address] Patient Name: TYLER TOVAR Admission Status: ER Accout number: [id number] Admission Date: 10-03-2018 : 1950 Admission Diagnosis:TYPE 2 DIABETES MELLITUS WITH FOOT ULCER Attending: CYNTHIA BOBBY Current LOS: 14 Anticipated DC Date: Planned Disposition: Primary Insurance: [employer]NA CHOICE PPO MCR ADVANT Discharge Planning Comments: SEPIDEH FROM [facility] CALLED AND STATES SHE TALKED TO PATIENT AND SHE WANTS TO SMOKE AND THEY ARE A NON SMOKING FACILITY. CM TO FOLLOW UP WITH DC PLANNING. Broomcorn Seeder: Yamilet Grossman DCP- Discharge Planning Updated by [id number]: Yamilet Grossman on 10/16/18 9:[address] Patient Name: TYLER TOVAR Admission Status: ER Accout number: [id number] Admission Date: 10-03-2018 : 1950 Admission Diagnosis:TYPE 2 DIABETES MELLITUS WITH FOOT ULCER Attending: CYNTHIA BOBBY Current LOS: 13 Anticipated DC Date: Planned Disposition: Primary Insurance: HUMANA CHOICE PPO MCR ADVANT Discharge Planning Comments: SPOKE WITH [facility] AND THEY WILL NOT ACCEPT PATIENT. CM SPOKE WITH [facility] AND THEY TAKE HUMANA INS., REFERRAL SENT TO THEM. RECIEVED HOLDEN APPROVAL AND FAXED IT TO [facility] ALSO. WAITING FOR CALL BACK. CM TO FOLLOW AND ASSIST. Broomcorn Seeder: Yamilet Grossman DCP- Discharge Planning Updated by [id number]: Yamilet Grossman on 10/15/18 3:[address] Patient Name: TYLER TOVAR Admission Status: ER Accout number: [id number] Admission Date: 10-03-2018 : 1950 Admission Diagnosis:TYPE 2 DIABETES MELLITUS WITH FOOT ULCER Attending: CYNTHIA BOBBY Current LOS: 12 Anticipated DC Date: Planned Disposition: Primary Insurance: HUMANA CHOICE PPO MCR ADVANT Discharge Planning Comments: CM SPOKE WITH PERICO AT THE [facility] AND SHE CAME OUT TO SEE PATIENT TODAY. HOLDEN WILL BE NEEDED. CM FAXED HOLDEN TODAY, WAITING FOR RESPONSE. PLAN IS FOR PATIENT TO GO TO THE [facility] FOR SNF IF ACCEPTED. CM TO FOLLOW AND ASSIST NEEDED WITH DC PLANNING/NEEDS. Broomcorn Seeder: Yamilet Grossman DCP- Discharge Planning Updated by [id number]: Yamilet Grossman on 10/14/18 7:[address] Patient Name: TYLER TOVAR Admission Status: ER Accout number: [id number] Admission Date: 10-03-2018 : 1950 Admission Diagnosis:TYPE 2 DIABETES MELLITUS WITH FOOT ULCER Attending: CYNTHIA BOBBY Current LOS: 11 Anticipated DC Date: Planned Disposition: Primary Insurance: HUMANA CHOICE PPO [facility] ADVANT Discharge Planning Comments: CM WILL MEET WITH PATIENT TODAY AND BEGIN THE PROCESS OF SNF IF PATIENT WILL AGREE. Broomcorn Seeder: Yamilet Grossman DCP- Discharge Planning Updated by [id number]: Lizett Forrester on 10/13/18 10:[address] CM RECEIVED TC AT 1058 FROM [facility]/ REHAB. PATIENT IS NOT PARTICIPATING WITH PHYSICAL THERAPY. PREAUTH UNLIKELY WITH HER INSURER DUE TO NONPARTICIPATION. TC TO PHYSICAL THERAPY TO DISCUSS PATIENT PROGRESS. WILL ALSO VISIT WITH THE PATIENT. ASHER HANSON, WITH DR SONG CALLED THIS AM STATING NURSING STAFF CAN START DAILY DRESSING CHANGES. DCP- Discharge Planning Updated by [id number]: Yamilet Grossman on 10/10/18 11:[address] Patient Name: TYLER TOVAR Admission Status: ER Accout number: [id number] Admission Date: 10-03-2018 : 1950 Admission Diagnosis:TYPE 2 DIABETES MELLITUS WITH FOOT ULCER Attending: CYNTHIA BOBBY Current LOS: 7 Anticipated DC Date: Planned Disposition: Primary Insurance: HUMANA CHOICE PPO [facility] ADVANT Discharge Planning Comments: PATIENT WANTS [facility] WILL SUBMIT CLINICALS TO [facility] WHEN PATIENT IS MEDICALLY STABLE. Broomcorn Seeder: Yamilet Grossman DCP- Discharge Planning Updated by [id number]: Yamilet Grossman on 10/06/18 10:[address] Patient Name: TYLER TOVAR Admission Status: ER Accout number: [id number] Admission Date: 10-03-2018 : 1950 Admission Diagnosis:TYPE 2 DIABETES MELLITUS WITH FOOT ULCER Attending: CYNTHIA BOBBY Current LOS: 3 Anticipated DC Date: Planned Disposition: Primary Insurance: Mobile Complete PPO Discharge Planning Comments: CM MET WITH PATIENT ABOUT DC PLANNING/NEEDS. PATIENT IS UNSURE OF DC PLAN. LIVES HOME ALONE, NO FAMILY. HAS A FRIEND NAMED CHARBEL THAT DOES HER SHOPPING AND OTHER THINGS FOR HER. SHE IS UNABLE TO AMBULATE. USES A WHEELCHAIR AT HOME AND TRANSFERS HERSELF FROM WHEELCHAIR TO CHAIR. THE CHART STATES SHE WILL PROB HAVE SURGERY ON HER FOOT SATURDAY. SHE MAY NEED SNF OR REHAB. AT THIS TIME SHE MAY BE TO LOW FUNCTION FOR IPREHAB. CM WILL FOLLOW AND ASSIST NEEDED WITH DC PLANNING/NEEDS. HOME ENVIRONMENT MAY NOT BE SAFE, RN SAID IT IS EXTREMELY DIRTY. Broomcorn Seeder: Yamilet Grossman DCPIA - Discharge Planning Initial Assessment Updated by [email or web address]: Yamilet Grossman on 10/06/18 12:17 pm * Is the patient Alert and Oriented? Yes * PCP NONE * [facility]acy [facility] * Preadmission Environment Home Alone * ADLs Partial Dependent * Partial ADLs (Assistance needed) Ambulation Bathing Dressing Toileting * Equipment Wheelchair * List name and contact numbers for known caregivers / representatives who currently or will assist patient after discharge: [employer], FRIEND, * Community resources currently utilized None * Additional services required to return to the preadmission environment? Yes * Can the patient safely return to the preadmission environment? No * Has this patient been hospitalized within the prior 30 days at any hospital? No Coverage Notice Reviewer: [id number] Randal Grossman Notice Issued Date-Time: 10/14/2018 12:02 Notice Type: Patient Choice Letter Notice Delivered To: Patient Relationship to Patient: Self Bath Solution Maker Name: Delivery Method: HAND - Hand Delivered Laura Days: Prior Verbal Notification: Recipient Understood Notice: Yes Recipient Signature: Yes Med Rec Note Co-signed by Attending: Coverage Notice Comment: JESÚS Jaeger snf Reviewer: [id number] Randal Grossman Notice Issued Date-Time: 10/17/2018 7:47 Notice Type: IM Discharge Notice Notice Delivered To: Patient Relationship to Patient: Self Bath Solution Maker Name: Delivery Method: HAND - Hand Delivered Laura Days: Prior Verbal Notification: Recipient Understood Notice: Yes Recipient Signature: Yes Med Rec Note Co-signed by Attending: Coverage Notice Comment: Reviewer: [id number] - Bonny Hummel Notice Issued Date-Time: 10/21/2018 11:05 Notice Type: IM Discharge Notice Notice Delivered To: Patient Relationship to Patient: Self Bath Solution Maker Name: Delivery Method: HAND - Hand Delivered Laura Days: Prior Verbal Notification: Recipient Understood Notice: Yes Recipient Signature: Yes Med Rec Note Co-signed by Attending: Coverage Notice Comment: Last DP export: 10/21/18 10:22 a Patient Name: TYLER TOVAR Page [phone] at 1531 All edits/amendments must be made on the electronic document DICTATION DATE: 10/21/18 153 CLAIM INSPECTOR: NINA 10/21/18 1530 RPT#: [id number] DC DATE:10/21/18 STATUS: DIS IN [facility] [address] [place] [address] END OF REPORT
== END 2018-10-21 15:24 | DRG 617 ==
LOC: D.ER 00:40 → D.M3 03:17 → D.EDHOLD 03:17 → D.M3 03:38
PROVIDERS: Emergency Medicine; Family Medicine; Internal Medicine Nephrology; Orthopaedic Surgery; ADMIT Family Medicine Adult Medicine; ATTEND Family Medicine Adult Medicine
PROC: 0Y6P0Z1 Detachment at Right 1st Toe, High, Open Approach (ICD-10-PCS; principal; 2018-10-09 13:30)
DX: E11.628 Type 2 diabetes mellitus with other skin complications (principal); L03.115 Cellulitis of right lower limb; F17.213 Nicotine dependence, cigarettes, with withdrawal; N39.0 Urinary tract infection, site not specified; E11.52 Type 2 diabetes mellitus with diabetic peripheral angiopathy with gangrene; I96 Gangrene, not elsewhere classified; E11.621 Type 2 diabetes mellitus with foot ulcer; I10 Essential (primary) hypertension; L40.9 Psoriasis, unspecified; F20.9 Schizophrenia, unspecified; F32.9 Major depressive disorder, single episode, unspecified; E11.40 Type 2 diabetes mellitus with diabetic neuropathy, unspecified; E83.42 Hypomagnesemia; L89.309 Pressure ulcer of unspecified buttock, unspecified stage; E66.01 Morbid (severe) obesity due to excess calories; Z68.35 Body mass index [BMI] 35.0-35.9, adult; D50.9 Iron deficiency anemia, unspecified

== ENCOUNTER 2018-11-07 03:02 | Emergency (ER) | payer MEDICARE ==
[~2018-11-07] VITALS: Ht 175.3 cm; Wt 159.1 kg
[~2018-11-07 03:02] MED LIST changes: +CHANTIX0.5 MG PO; +HUMULIN R100 U/ML SC; +PROTONIX40 MG PO
[2018-11-07 03:07] VITALS: Ht 175.3 cm; Wt 159.1 kg
[2018-11-07] MEDS ORDERED: DIFLUCAN100 MG PO (03:38)
[2018-11-07] MEDS ORDERED: MINOCYCLINE HCL75 M1 PO (03:38)
[2018-11-07 04:50] VITALS: BP 167/79
== END 2018-11-07 04:50 | disposition home or self-care (01) ==
LOC: D.ER 03:02
DX: B37.89 Other sites of candidiasis (principal); L30.9 Dermatitis, unspecified; L03.818 Cellulitis of other sites; E11.65 Type 2 diabetes mellitus with hyperglycemia; I10 Essential (primary) hypertension; E66.01 Morbid (severe) obesity due to excess calories

== ENCOUNTER 2018-11-07 18:11 | Inpatient (IN) | payer MEDICARE ==
[~2018-11-07 18:11] MED LIST changes: +DIFLUCAN100 MG PO; +MINOCYCLINE HCL75 M1 PO
[2018-11-07 19:37] LABS: HEMATOCRIT 35.9 % (36.0-48.0); HEMOGLOBIN 12.1 g/dL (12-16); MCHC 33.7 g/dL (31.0-37.0); MCV 83.1 fL (80.0-100.0); MEAN PLATELET VOLUME 9.7 fL (7.4-10.4); PLATELET COUNT 297 10x3/uL (130-400); RBC 4.32 10x6/uL (4.00-5.40); RDW 14.8 % (11.5-14.5); WBC 33.2 10x3/uL (4.8-10.8)
--- NOTE | 2018-11-07 19:37 | NUR ---
URINE AND WOUND CULTURE SENT TO LAB.
[2018-11-07 19:51] LABS: KETONE - SERUM NEGATIVE (NEGATIVE)
[2018-11-07 20:01] LABS: COLOR DK YELLOW (YELLOW)
[2018-11-07 20:02] LABS: APPEARANCE CLEAR (CLEAR); BILIRUBIN NEGATIVE (NEGATIVE); GLUCOSE 500 mg/dL (NEGATIVE); KETONE MODERATE mg/dL (NEGATIVE); NITRITE NEGATIVE (NEGATIVE); PROTEIN 2+ mg/dL (NEGATIVE); SPECIFIC GRAVITY 1.025 (1.005-1.020); UROBILINOGEN NORMAL (NORMAL)
[2018-11-07 20:03] LABS: BACTERIA MANY /hpf (NONE SEEN); EPITHELIAL CELLS 0-5 /hpf (0-5); RED CELLS - URINE 0-5 /hpf (0-5); YEAST >1+ /hpf (NONE SEEN)
[2018-11-07 20:04] LABS: MUCUS <1+ /lpf (NONE SEEN)
--- NOTE | 2018-11-07 20:10 | NUR ---
PT'S FRIEND CHITO NATION AT [phone] CALLED REQUESTING AN UPDATE ON PT'S STATUS, PT GIVES VERBAL CONSENT TO NURSE TO GIVE HIM INFORMATION ABOUT HER. PHONE CALL TRANSFERRED TO ROOM SO PT CAN SPEAK TO HIM. PT ASSISTED IN USING PHONE IN ROOM. PT REQUEST LIGHT IN ROOM BE TURNED OFF SO SHE CAN SLEEP. DENIES ANY FURTHER NEEDS AT THIS TIME. WILL CONTINUE TO MONITOR.
[2018-11-07 20:29] LABS: ALBUMIN 2.6 g/dL (3.4-5.0); ALKALINE PHOSPHATASE 74 U/L (46-116); ALT (SGPT) 21 U/L (10-68); BILIRUBIN - TOTAL 0.43 mg/dL (0.2-1.3); CALC OSMOLALITY 275 mosm/kg (275-300); CALCIUM 9.3 mg/dL (8.5-10.1); CARBON DIOXIDE 26.5 mmol/L (21.0-32.0); CHLORIDE - SERUM 94 mmol/L (98-107); CREATININE - SERUM 0.8 mg/dL (0.6-1.3); GLUCOSE 314 mg/dL (74-106); POTASSIUM - SERUM 4.3 mmol/L (3.5-5.1); PROTEIN - SERUM 7.3 g/dL (6.4-8.2); SODIUM 131 mmol/L (136-145); UREA NITROGEN 15 mg/dL (7-18); eGFR NON AFRICAN AMERICAN 76 mL/min (90-120)
[2018-11-07 20:30] LABS: EOSINOPHILS 1 % (0-7); LYMPHOCYTES 7 % (15-50); MONOCYTES 1 % (2-11); NEUTROPHILS 89 % (40-80); PLATELET ESTIMATE NORMAL
[2018-11-07 20:38] LABS: THYROID STIMULATING HORMONE 1.06 uIU/mL (0.36-3.74)
--- NOTE | 2018-11-07 22:00 | NUR ---
FROM ER TO BED VIA STRETCHER BED PUT LOW AND CALL LIGHT IN REAch attempts MADE FOR COMFORT CONTINUED RUNNING VANC STARTED IN THE ER. LUNGS DEMINISHED BOWEL SOUNDS TIMES FOR ALLL OF PATIENT FOLDS CONTAIN SIGNS OF NOT BATHING NO PRESSURE SORES NOTED ...PT SCREAMS THAT SHE IS IN AGONMY WHILE IM AT BED SIDE BUT DOES NOT WHEN IM OUT OF ROOM...MAY GIVE PERCOCET IN ONE HOUR. SR X2
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
[2018-11-07 23:55] VITALS: BP 145/63
--- NOTE | 2018-11-08 02:43 | NUR ---
I have reviewed this patient and I concur with the Shift Assessment completed by the Licensed Practical Nurse today this shift.
[2018-11-08 03:55] VITALS: BP 142/72
--- NOTE | 2018-11-08 06:19 | NUR ---
AFTER BATH NOTED SKIN SLOUGHING OFF OFF THE RT INSIDE BEND OF ELBOW
--- NOTE | 2018-11-08 07:10 | NUR ---
RECIEVED REPORT. ASSUMED CARE OF PATIENT. CALL LIGHT WITHIN REACH. PATIENT WITH EYES CLOSED. EASILY AROUSED. RESP EVEN AND UNLABORED. PATIENT DENIES NEEDS AT THIS TIME. NO DISTRESS.
[2018-11-08 08:18] VITALS: BP 150/77
--- NOTE | 2018-11-08 09:19 | NUR ---
SAT PATIENT UP IN BED FOR AM MEAL AND MEDICATIONS. PATIENT STATES THERE IS NO CHOCOLATE MILK ON HER TRAY, EXPLAINED WITH AN ADA DIET AND ELEVATED BLOOD GLUCOSE, THIS CHILD CARE NURSE CAN NOT GIVE CHOCOLATE MILK AT THIS TIME. TOOK MEDICATIONS WITHOUT DIFFICULTY. PATIENT ANSWERS WITH SHORT QUICK CHOPPY ANSWERS. CALL LIGHT WITHIN REACH. RESP EVEN AND UNLABORED. NO DISTRESS.
[2018-11-08 09:43] LABS: ALBUMIN 2.4 g/dL (3.4-5.0); ANION GAP 13.4 mmol/L (8-16); BILIRUBIN - TOTAL 0.43 mg/dL (0.2-1.3); CALCIUM 9.2 mg/dL (8.5-10.1); CARBON DIOXIDE 28.8 mmol/L (21.0-32.0); POTASSIUM - SERUM 4.2 mmol/L (3.5-5.1)
[2018-11-08 09:45] LABS: BASOPHILS 0.1 % (0-2); EOSINOPHILS 0 % (0-7); HEMATOCRIT 38.8 % (36.0-48.0); HEMOGLOBIN 12.6 g/dL (12-16); IMMATURE GRANULOCYTES 1.1 % (0-5); LYMPHOCYTES 5.5 % (15-50); MCH 27.8 pg (26.0-34.0); MCHC 32.5 g/dL (31.0-37.0); MCV 85.5 fL (80.0-100.0); MEAN PLATELET VOLUME 9.9 fL (7.4-10.4); MONOCYTES 6.1 % (2-11); NEUTROPHILS 87.2 % (40-80); PLATELET COUNT 295 10x3/uL (130-400); RBC 4.54 10x6/uL (4.00-5.40); RDW 15.2 % (11.5-14.5); WBC 28.9 10x3/uL (4.8-10.8)
--- NOTE | 2018-11-08 11:23 | NUR ---
FSBS 270. 10 UNITS HUMALOG ADMINISTERED PER SLIDING SCALE.
[2018-11-08 12:08] VITALS: BP 174/85
--- NOTE | 2018-11-08 13:00 | NUR ---
COMPLETE LINEN CHANGE AND INCONTINENT CARES RENDERED. CALL LIGHT WITHIN REACH. NO DISTRESS. RESP EVEN AND UNLABORED.
[2018-11-08 13:27] VITALS: BMI 42.8
[2018-11-08 17:05] VITALS: BP 114/64
--- NOTE | 2018-11-08 17:22 | NUR ---
FSBS 260. 10 UNITS HUMALOG ADMINISTERED. MEDICATED FOR PAIN AT THIS TIME. NO DISTRESS. CALL LIGHT WITHIN REACH.
[2018-11-08 19:44] VITALS: BP 131/79
--- NOTE | 2018-11-08 19:44 | NUR ---
EVENING ROUNDS COMPLETED. REPORT RECEIVED. PT SITTING UP IN BED WITH EYES CLOSED, RR EVEN AND UNLABORED. BED IN LOW POSITION. NO S/S OF DISTRESS NOTED. SIDE RAILS UP X2. CALL LIGHT IN REACH. WILL CTM.
[2018-11-08 23:50] VITALS: BP 148/71
--- NOTE | 2018-11-09 01:33 | NUR ---
I have reviewed this patient and I concur with the Shift Assessment completed by the Licensed Practical Nurse today this shift.
--- NOTE | 2018-11-09 01:37 | NUR ---
ADMINISTERED ORDERED ANALGESIC FOR COMPLAINTS OF PAIN IN ARMS, PT STATES PAIN OF 10 ON A SCALE OF 0-10. WILL CTM.
[2018-11-09 03:55] VITALS: BP 127/57
--- NOTE | 2018-11-09 05:13 | NUR ---
BILATERAL UPPER EXTREMITIES CLEANED WITH WOUND ANTISEPTIC, EXTREMITIES HAVE A FOUL ODOR AND APPEAR TO HAVE A AMANDA SLOUGHING. UNDERLYING SKIN APPEARS TO BE MOIST AND REDDENED AND VERY SENSITIVE TO TOUCH. WILL FOLLOW UP WITH DAY SHIFT TO SEE ABOUT POTENTIAL FINDING A MEDICATED POWDER TO APPLY TO THIS AREA.
--- NOTE | 2018-11-09 05:13 | NUR ---
BEDDING AND LINEN CHANGE PROVIDED BY MAITE RAJAN CNA AND DUY KINSEY LPN. ONE EPISODE OF URINARY INCONTINENCE OBSERVED.
--- NOTE | 2018-11-09 07:00 | NUR ---
RECEIVED REPORT. ASSUMED CARE OF PATIENT. CALL LIGHT WITHIN REACH. PATIENT IN SUPINE POSITION WITH EYES CLOSED, SNORING. NO DISTRESS. RESP EVEN AND UNLABORED.
[2018-11-09 08:00] LABS: HEMOGLOBIN 11.8 g/dL (12-16); MCH 27.8 pg (26.0-34.0); MCHC 31.9 g/dL (31.0-37.0); MCV 87.3 fL (80.0-100.0); MEAN PLATELET VOLUME 9.9 fL (7.4-10.4); PLATELET COUNT 235 10x3/uL (130-400); RBC 4.24 10x6/uL (4.00-5.40); RDW 15.2 % (11.5-14.5); WBC 26.6 10x3/uL (4.8-10.8)
[2018-11-09 08:19] LABS: CALC OSMOLALITY 270 mosm/kg (275-300); CALCIUM 8.9 mg/dL (8.5-10.1); CARBON DIOXIDE 24.7 mmol/L (21.0-32.0); CHLORIDE - SERUM 94 mmol/L (98-107); CREATININE - SERUM 0.8 mg/dL (0.6-1.3); GLUCOSE 201 mg/dL (74-106); POTASSIUM - SERUM 4.2 mmol/L (3.5-5.1); SODIUM 130 mmol/L (136-145); UREA NITROGEN 24 mg/dL (7-18); VANCOMYCIN - TROUGH 26.7 ug/mL (10.0-20.0); eGFR NON AFRICAN AMERICAN 76 mL/min (90-120)
[2018-11-09 08:34] VITALS: BP 152/66
[2018-11-09 09:32] LABS: EOSINOPHILS 2 % (0-7); LYMPHOCYTES 4 % (15-50); MONOCYTES 9 % (2-11); NEUTROPHILS 73 % (40-80); PLATELET ESTIMATE NORMAL; ROULEAUX OCC
[2018-11-09 11:20] VITALS: BP 155/73
--- NOTE | 2018-11-09 11:34 | NUR ---
FSBS 246. 8 UNITS HUMALOG PER SLIDING SCALE ADMINISTERED. MEDICATED FOR PAIN AT THIS TIME. PATIENT WANTS TO KNOW WHEN SHE CAN HAVE HER NEXT DOSE. NEXT DOSE AVAILABLE TIME PLACED ON PATIENTS WHITE BOARD. PATIENT TOLD THIS DISTRIBUTION DRIVER THAT IF SHE FORGETS TO ASK FOR PAIN MEDICATION TO COME IN HER ROOM AT 1530 AND POINT TO THE WHITE BOARD AND SHE WILL THEN ASK FOR PAIN MEDICATION. INFORMED THE PATIENT THAT THIS NURSE WILL NOT PROMPT HER TO ASK FOR PAIN MEDICATION, THAT IS SHE IS HURTING SHE WILL ASK FOR IT. CALL LIGHT WITHIN REACH. ATTENTION TOWARD TELEVISION AT THIS TIME.
--- NOTE | 2018-11-09 14:04 | NUR ---
INCONTINENT CARE PROVIDED. ARMS CLEANSED, SKIN CONTINUES TO SLOUGH OFF. PATIENT SKIN TO BILATERAL UPPER ARMS, AXILLA, AND SIDES OF BREAST RESEMBLE BURN TISSUE. POSITIONED FOR COMFORT. CALL LIGHT WITHIN REACH.
--- NOTE | 2018-11-09 14:49 | NUR ---
AWAITING FOR VANC TROUGH TO RESULT BEFORE 1400 DOSE OF VANC IS HUNG. NO DISTRESS AT THIS TIME. CALL LIGHT WITHIN REACH.
[2018-11-09 15:32] VITALS: BP 130/69
--- NOTE | 2018-11-09 15:33 | NUR ---
MEDICATED FOR PAIN AT THIS TIME. NO DISTRESS.
--- NOTE | 2018-11-09 16:30 | NUR ---
FSBS 226. 8 UNITS HUMALOG PER SLIDING SCALE. NO DISTRESS.
--- NOTE | 2018-11-09 19:53 | NUR ---
EVENING ROUNDS COMPLETED. REPORT RECEIVED. PT SITTING UP IN BED WITH EYES OPEN, RR EVEN AND UNLABORED. BED IN LOW POSITION. NO S/S OF DISTRESS NOTED. 95 SINUS RHYTHMN ON TELEMETRY. INTRODUCED SELF TO PT. PT DENIES FURTHER NEEDS AT THIS TIME. CALL LIGHT IN REACH. WILL CTM.
[2018-11-09 21:11] VITALS: BP 123/67
[2018-11-10 03:55] VITALS: BP 118/73
--- NOTE | 2018-11-10 04:03 | NUR ---
I have reviewed this patient and I concur with the Shift Assessment completed by the Licensed Practical Nurse today this shift.
[2018-11-10 08:28] VITALS: BP 144/68
--- NOTE | 2018-11-10 09:48 | NUR ---
LAST TROUGH NOT DRAWN LATE. WILL ATTEMPT TO GET A LEVEL PRIOR TO 1400 DOSE TODAY
[2018-11-10 10:20] LABS: ANION GAP 15.3 mmol/L (8-16); CALCIUM 8.5 mg/dL (8.5-10.1); CARBON DIOXIDE 22.1 mmol/L (21.0-32.0); POTASSIUM - SERUM 4.4 mmol/L (3.5-5.1)
[2018-11-10 10:22] LABS: CREATININE - SERUM 1.1 mg/dL (0.6-1.3); HEMATOCRIT 33.7 % (36.0-48.0); LYMPHOCYTES 6.9 % (15-50); MCH 27.3 pg (26.0-34.0); MCHC 32.6 g/dL (31.0-37.0); MCV 83.6 fL (80.0-100.0); MEAN PLATELET VOLUME 9.7 fL (7.4-10.4); NEUTROPHILS 86.6 % (40-80); PLATELET COUNT 267 10x3/uL (130-400); RBC 4.03 10x6/uL (4.00-5.40); RDW 14.3 % (11.5-14.5); WBC 21.6 10x3/uL (4.8-10.8)
[2018-11-10 12:11] VITALS: BP 136/72
--- NOTE | 2018-11-10 13:27 | NUR ---
PTS SCR HAS BUMPED UP TO 1.1. THE VANCOMYCIN TROUGH WAS HIGH AT 28.1 ROUGHLY 6.5 HOURS POST DOSE. WILL STOP Q8H DOSING AND RESTART 1.25 GRAM Q 12H AT 2100 TONIGHT. WILL RECHECK A TROUGH SOON
[2018-11-10 16:48] VITALS: BP 139/64
--- NOTE | 2018-11-10 17:32 | MORECARE ---
CASE MANAGEMENT DISCHARGE SUMMARY PATIENT: TYLER TOVAR UNIT: [id number] ADM DATE: 11/07/18 AGE: 68 : 51 SEX: F ROOM/BED: D.2140 AUTHOR: GORAN FERMIN PHYSICIAN: REFERRING PHYSICIAN: TELMA TROTTER MD DATE OF SERVICE: 11/10/18 Discharge Plan Patient Name: [facility]YLER TOVAR [facility] [facility] 1950 Planned Disposition: Home Anticipated Discharge Date: Discharge Date: Expected LOS: Initial Reviewer: [email or web address] Initial Review Date: 11/07/2018 Generated: 11/10/18 6:32 pm Patient Name: TYLER TOVAR Page [id number] at 1732 All edits/amendments must be made on the electronic document DICTATION DATE: 11/10/181731 MEDICAL SOCIAL WORKER: NINA 11/10/181731 RPT#: [id number] DC DATE: STATUS: ADM IN [facility] [address] [place] [address] END OF REPORT
--- NOTE | 2018-11-10 17:39 | MORECARE ---
CASE MANAGEMENT DISCHARGE SUMMARY PATIENT: TYLER TOVAR UNIT: [id number] ADM DATE: 11/07/18 AGE: 68 : 51 SEX: F ROOM/BED: D.2140 AUTHOR: GORAN FERMIN PHYSICIAN: REFERRING PHYSICIAN: TELMA TROTTER MD DATE OF SERVICE: 11/10/18 Discharge Plan Patient Name: TYLER TOVAR [facility] : 1950 Planned Disposition: Home Anticipated Discharge Date: Discharge Date: Expected LOS: Initial Reviewer: [email or web address] Initial Review Date: 11/07/2018 Generated: 11/10/18 6:39 pm DCPIA - Discharge Planning Initial Assessment Updated by [id number]: José Covington on 11/10/18 5:32 pm * Is the patient Alert and Oriented? Yes * How many steps to enter\exit or inside your home? NONE * PCP NONE * [facility]acy [facility] * Preadmission Environment Home Alone * ADLs Partial Dependent * Partial ADLs (Assistance needed) Bathing * Equipment Wheelchair * Other Equipment NO MEDICAL EQUIPMENT PROVIDER PREFERENCE * List name and contact numbers for known caregivers / representatives who currently or will assist patient after discharge: CH[place]O [employer]ATION, FRIEND, * Verbal permission to speak to the caregivers and representatives has been obtained from the patient. N/A * Community resources currently utilized None * Please name any agencies selected above. NONE * Additional services required to return to the preadmission environment? No * Can the patient safely return to the preadmission environment? No * Has this patient been hospitalized within the prior 30 days at any hospital? Yes Last DP export: 11/10/18 4:32 pm Patient Name: TYLER TOVAR Page [id number] at 1739 All edits/amendments must be made on the electronic document DICTATION DATE: 11/10/181738 BUILD AND DEPLOYMENT ENGINEER: NINA 11/10/181738 RPT#: [id number] DC DATE: STATUS: ADM IN [facility] [address] [place] [address] END OF REPORT
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
--- NOTE | 2018-11-10 19:29 | NUR ---
PATIENT IS RESTING IN HER BED. NO NEEDS VOICED AT THIS TIME. HER BED IS DOWN LOW WITH SIDE RAILS UP X2. CALL LIGHT IN REACH.
[2018-11-10 20:00] VITALS: BP 108/69
--- NOTE | 2018-11-10 21:25 | NUR ---
PATIENT IS SLEEPING. HER BED IS DOWN LOW WITH SIDE RAILS UP X2. CALL LIGHT IS IN REACH.
--- NOTE | 2018-11-10 22:37 | NUR ---
PATIENT MEDICATED FOR C/O GENERALIZED PAIN LEVEL 6/10. DENIES ANY OTHER NEEDS. BED IS DOWN LOW WITH SIDE RAILS UP X2 AND CALL LIGHT IN REACH.
--- NOTE | 2018-11-11 00:04 | NUR ---
PATIENT IS SLEEPING. BED IS DOWN LOW WITH SIDE RAILS UP X2. CALL LIGHT IN REACH.
[2018-11-11 00:30] VITALS: BP 105/70
--- NOTE | 2018-11-11 04:04 | NUR ---
PATIENT IS SLEEPING. BED IS DOWN LOW WITH SIDE RAILS UP X2 AND CALL LIGHT IS IN REACH.
[2018-11-11 04:30] VITALS: BP 118/73
[2018-11-11 08:43] VITALS: BP 104/60
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
[2018-11-11 10:52] LABS: CALCIUM 8.9 mg/dL (8.5-10.1); CARBON DIOXIDE 26.9 mmol/L (21.0-32.0); CREATININE - SERUM 1.3 mg/dL (0.6-1.3); POTASSIUM - SERUM 3.9 mmol/L (3.5-5.1)
[2018-11-11 11:03] LABS: HEMATOCRIT 32.3 % (36.0-48.0); HEMOGLOBIN 10.6 g/dL (12-16); MCH 27.6 pg (26.0-34.0); MCHC 32.8 g/dL (31.0-37.0); MCV 84.1 fL (80.0-100.0); MEAN PLATELET VOLUME 9.8 fL (7.4-10.4); PLATELET COUNT 297 10x3/uL (130-400); RBC 3.84 10x6/uL (4.00-5.40); RDW 14.9 % (11.5-14.5); WBC 22.9 10x3/uL (4.8-10.8)
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
[2018-11-11 11:56] LABS: LYMPHOCYTES 7 % (15-50); MONOCYTES 6 % (2-11); NEUTROPHILS 83 % (40-80); PLATELET ESTIMATE NORMAL
[2018-11-11 12:08] VITALS: BP 109/63
--- NOTE | 2018-11-11 14:07 | NUR ---
Nutrition Follow Up: Chart reviewed Diet: ADA; Proteinex 30 ml BID PO Intake: 25% meal avg BM: 11/09/18 Labs reviewed - Glucose elevated; Na low Meds noted including Humalog Rec continue current diet. Rec consider an appetite stimulant. Will continue to honor food preferences within ADA diet. RD following.
[2018-11-11 15:58] VITALS: BP 103/61
--- NOTE | 2018-11-11 18:44 | NUR ---
SLEEPING IN BED. UNCONTROLLED AFIB 108. NO CHANGE. NO SIGNS OF DISTRESS. PREPARE HAND OFF REPORT. CONTINUE PLAN OF CARE AND SAFETY PRECAUTIONS.
--- NOTE | 2018-11-11 20:15 | NUR ---
RESUMING PT CARE. PT LAYING IN BED RESTING COMFORTABLY WITH EYES CLOSED. NO S/S OF DISTRESS NOTED. BED IN LOW POSITION WITH CALL LIGHT IN REACH. WILL CONTINUE TO MONITOR PT AND FOLLOW PLAN OF CARE.
[2018-11-12 00:30] VITALS: BP 145/58
--- NOTE | 2018-11-12 02:27 | NUR ---
I have reviewed this patient and I concur with the Shift Assessment completed by the Licensed Practical Nurse today this shift.
[2018-11-12 07:50] LABS: CALCIUM 8.9 mg/dL (8.5-10.1); CARBON DIOXIDE 25.2 mmol/L (21.0-32.0); CREATININE - SERUM 1.2 mg/dL (0.6-1.3); POTASSIUM - SERUM 4.2 mmol/L (3.5-5.1)
[2018-11-12 08:11] LABS: HEMATOCRIT 32.1 % (36.0-48.0); HEMOGLOBIN 10.6 g/dL (12-16); MCH 27.5 pg (26.0-34.0); MCV 83.2 fL (80.0-100.0); MEAN PLATELET VOLUME 10.9 fL (7.4-10.4); PLATELET COUNT 389 10x3/uL (130-400); RBC 3.86 10x6/uL (4.00-5.40); RDW 15.2 % (11.5-14.5); WBC 22.1 10x3/uL (4.8-10.8)
[2018-11-12 08:30] VITALS: BP 135/82
[2018-11-12 09:07] LABS: EOSINOPHILS 4 % (0-7); LYMPHOCYTES 12 % (15-50); MONOCYTES 15 % (2-11); NEUTROPHILS 63 % (40-80); PLATELET ESTIMATE NORMAL
--- NOTE | 2018-11-12 09:26 | NUR ---
Pt admitted on 11/07/18 with numerous skin issues. Abdomimal folds up to breasts and upper arms down to elbows red/excoriated. Entire body has small scabs and red areas due to poor hygiene practices and laying in urine and feces at home. Redness/excoriation noted to buttocks, back and back of legs. Pt refuses to turn/reposition during hospital stay. Most skin issues are due to incontinence and poor hygiene (moisture associated). Back of thighs have small open sores due to moisture. 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 Wound care continues to monitor.
--- NOTE | 2018-11-12 10:51 | NUR ---
PT HAS ERYSIPELES TO BUE AND TRUNK. TREATMENT NURSE ASSISTED RN TO ASSESS PT SKIN. TREATMENT NURSE RECOMMENDED LEAVING ERYSIPELES OPEN TO AIR AND CLEAN AND FOLLOW UP WITH ATTENDING MD ONCE THEY ROUND.
[2018-11-12 11:46] VITALS: BP 137/71
[2018-11-12 19:55] VITALS: BP 123/85
--- NOTE | 2018-11-12 20:55 | NUR ---
RESUMING PT CARE. PT IS ALERT LAYING IN BED. NO C/O VOICED. NO ACUTE S/S OF DISTRESS NOTED. BED IN LOW POSITION WITH CALL LIGHT IN REACH. SIDE RAILS UP X 2. WILL CONTINUE TO MONITOR PT AND FOLLOW PLAN OF CARE.
[2018-11-13 00:41] VITALS: BP 114/63
--- NOTE | 2018-11-13 03:46 | NUR ---
I have reviewed this patient and I concur with the Shift Assessment completed by the Licensed Practical Nurse today this shift.
[2018-11-13 04:56] LABS: BASOPHILS 0.3 % (0-2); EOSINOPHILS 2.3 % (0-7); HEMATOCRIT 31.8 % (36.0-48.0); HEMOGLOBIN 10.5 g/dL (12-16); IMMATURE GRANULOCYTES 6.2 % (0-5); LYMPHOCYTES 8.3 % (15-50); MCH 27.3 pg (26.0-34.0); MCV 82.6 fL (80.0-100.0); MEAN PLATELET VOLUME 9.8 fL (7.4-10.4); MONOCYTES 10.4 % (2-11); NEUTROPHILS 72.5 % (40-80); PLATELET COUNT 321 10x3/uL (130-400); RBC 3.85 10x6/uL (4.00-5.40); RDW 15.2 % (11.5-14.5); WBC 17.9 10x3/uL (4.8-10.8)
[2018-11-13 05:04] LABS: ANION GAP 12.9 mmol/L (8-16); CALCIUM 8.8 mg/dL (8.5-10.1); CARBON DIOXIDE 26.2 mmol/L (21.0-32.0); CREATININE - SERUM 1.2 mg/dL (0.6-1.3); POTASSIUM - SERUM 4.1 mmol/L (3.5-5.1)
[2018-11-13 08:36] VITALS: BP 153/72
[2018-11-13 12:07] VITALS: BP 126/60
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
[2018-11-13 16:40] VITALS: BP 144/72
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
--- NOTE | 2018-11-13 19:35 | NUR ---
Patient received resting in bed with meal tray in front of her. Still eating her dinner slowly. Alert and oriented x 4, bedridden. Per report from Day Nurse patient has no PIV access, has been placed on Hospice today, all her IV medications have been changed to oral. Therefore, PIV has not been re-sited. No needs or concerns voiced at this time.
--- NOTE | 2018-11-13 21:04 | NUR ---
Given Percocet for generalized aches and pains, moaning and groaning, will monitor for effectiveness.
[2018-11-13 21:18] VITALS: BP 107/70
--- NOTE | 2018-11-13 22:00 | NUR ---
Resting quietly, dozing, analgesic deemed effective. No signs of distress at this time.
--- NOTE | 2018-11-14 02:33 | NUR ---
Resting quietly in bed, no signs of distress.
--- NOTE | 2018-11-14 02:57 | NUR ---
Yelling out, voice hoarse, reminded to use call light when needed assistance. Apologized.
[2018-11-14 04:00] VITALS: BP 110/68
--- NOTE | 2018-11-14 06:12 | NUR ---
Given Percocet for generalized aches and pains.
--- NOTE | 2018-11-14 08:00 | NUR ---
RECEIVED A/A/OX2 PERSON AND PLACE ONLY. ASKED WHY SHE WAS HERE. EXPLAINED HER SITUATION TO HER. DENIES ANY NEED FOR PAIN MED AT THIS TIME AND NO REQUESTS VOICED. ASSESSMENT COMPLETED. BED IN LOW POSITION AND LOCKED, SIDERAILS UP X 2 AND CALL LIGHT IN REACH. WILL CONTINUE POC.
[2018-11-14 08:34] LABS: HEMATOCRIT 33.8 % (36.0-48.0); HEMOGLOBIN 10.8 g/dL (12-16); MCV 84.5 fL (80.0-100.0); MEAN PLATELET VOLUME 9.5 fL (7.4-10.4); PLATELET COUNT 307 10x3/uL (130-400); RDW 15.4 % (11.5-14.5); WBC 19.8 10x3/uL (4.8-10.8)
[2018-11-14 08:42] LABS: ALBUMIN 1.6 g/dL (3.4-5.0); ANION GAP 14.1 mmol/L (8-16); BILIRUBIN - TOTAL 0.26 mg/dL (0.2-1.3); CALCIUM 8.5 mg/dL (8.5-10.1); CARBON DIOXIDE 23.8 mmol/L (21.0-32.0); POTASSIUM - SERUM 4.9 mmol/L (3.5-5.1)
[2018-11-14 09:24] VITALS: BP 107/69
[2018-11-14 10:58] LABS: EOSINOPHILS 1 % (0-7); LYMPHOCYTES 17 % (15-50); MONOCYTES 17 % (2-11); NEUTROPHILS 58 % (40-80); PLATELET ESTIMATE NORMAL
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
--- NOTE | 2018-11-14 13:25 | NUR ---
I have reviewed this patient and I concur with the Shift Assessment completed by the Licensed Practical Nurse today this shift.
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
--- NOTE | 2018-11-14 13:51 | NUR ---
Nutrition follow-up: Pt sleeping when RDN tried to visit. Pt has been taking a lot of pain meds due to wounds. Diet: ADA consistent CHO PO Intake ~50% of meals Labs reviewed Wt: 315# Will continue to provide food choices and honor food preferences. RDN following.
--- NOTE | 2018-11-14 15:53 | NUR ---
BILATERAL ARMS WRAPPED WITH ADAPTIC AND KERLIX.
[2018-11-14 16:05] VITALS: BP 110/65
--- NOTE | 2018-11-14 16:20 | NUR ---
ADAPTIC ADRIANA ARMS CHANGED. SOME OF THE NECROTIC TISSUE HAS SLOUGHED OFF. WOUND CARE NURSE IN ATTENDANCE. NEW ADAPTIC APPLIED ADRIANA ARMS AND R BREAST. ARMS WRAPPED WITH KERLIX. ABD PLACED OVER R BREAST. SURGICAL SHEET APPLIED ON TOP OF FIITED SHEET SO PT SKIN DOES NOT ADHERE TO IT. CHAIR EGG CRATE CUT IN HALF AND EACH ARM RESTS ON IT. DR. ANAND VISITED PT AND AGREES WITH WOUND PLAN. WOUNDS ARE TO BE DRESSED DAILY.
--- NOTE | 2018-11-14 19:37 | NUR ---
PT RESTING IN BED WITH EYES CLOSED. RR EVEN AND UNLABORED. BED LOW CALL LIGHT WITHIN REACH. WILL CONTINUE TO MONITOR.
[2018-11-14 20:00] VITALS: BP 122/71
--- NOTE | 2018-11-14 22:15 | NUR ---
PT COMPLAINED OF 10/10 PAIN. PRN PAIN MEDS GIVEN. CHANGED PT PADDING. BED LOW CALL LIGHT WITHIN REACH. WILL REACH.
[2018-11-14 23:56] VITALS: BP 105/68
[2018-11-15 00:16] VITALS: BP 113/64
--- NOTE | 2018-11-15 01:09 | NUR ---
PT RESTING IN BED WITH EYES CLOSED. RR EVEN AND UNLABORED. BED LOW CALL LIGHT WITHIN REACH. WILL CONTINUE TO MONITOR.
--- NOTE | 2018-11-15 03:15 | NUR ---
PT COMPLAINS OF 9/10 PAIN ON BACK AND SHOULDERS. PN PAIN MEDICATION GIVEN. BED LOW CALL LIGHT WITHIN REACH. WILL CONTINUE TO MONITOR.
[2018-11-15 04:25] VITALS: BP 98/69
[2018-11-15 04:58] LABS: BASOPHILS 0.2 % (0-2); EOSINOPHILS 2.2 % (0-7); HEMATOCRIT 31.6 % (36.0-48.0); HEMOGLOBIN 10.3 g/dL (12-16); IMMATURE GRANULOCYTES 6.8 % (0-5); MCHC 32.6 g/dL (31.0-37.0); MCV 82.7 fL (80.0-100.0); MEAN PLATELET VOLUME 9.1 fL (7.4-10.4); MONOCYTES 5.9 % (2-11); NEUTROPHILS 74.9 % (40-80); PLATELET COUNT 302 10x3/uL (130-400); RBC 3.82 10x6/uL (4.00-5.40); RDW 15.2 % (11.5-14.5); WBC 17.4 10x3/uL (4.8-10.8)
[2018-11-15 05:43] LABS: ALBUMIN 1.5 g/dL (3.4-5.0); ANION GAP 11.9 mmol/L (8-16); BILIRUBIN - TOTAL 0.28 mg/dL (0.2-1.3); CALCIUM 8.8 mg/dL (8.5-10.1); CARBON DIOXIDE 26.4 mmol/L (21.0-32.0); POTASSIUM - SERUM 4.3 mmol/L (3.5-5.1); PROTEIN - SERUM 6.7 g/dL (6.4-8.2)
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
--- NOTE | 2018-11-15 06:06 | NUR ---
PT NPO AT THIS TIME. PT ALERT AND ORIENTED. PT DENIES ANY PAIN OR NEEDS AT THIS TIME. BED LOW CALL LIGHT WITHIN REACH. WILL CONTINUE TO MONITOR.
--- NOTE | 2018-11-15 07:18 | NUR ---
PT AWAKE AND ORIENTED, YELLING IN A MADE UP LANGUAGE ABOUT HER PAIN. ANSWERED QUESTIONS TO THE BEST OF MY ABILITY. CL IN REACH. SRX2.
[2018-11-15 07:49] VITALS: BP 107/66
[2018-11-15 12:16] VITALS: BP 102/64
[2018-11-15 15:38] VITALS: BP 108/69
--- NOTE | 2018-11-15 18:22 | NUR ---
PREFORMED BED/DRESSING CHANGE.
--- NOTE | 2018-11-15 20:00 | NUR ---
RECIEVED BEDSIDE REPORT. ROUNDS COMPLETE, VSS, PT APPEARS DISORIENTED, AND IRRITABLE. PT ON CONTACT PRECAUTION. DRESSING TO RIGHT AND LEFT ARM C/D/I. WEEPING WOUNDS UNDERNEATH PT R/L ARM. AMPUTATION OF RIGHT GREAT TOE. PT CURRENLTY RESTING IN BED WITH EYES OPEN. DENIES ANY FURTHER NEEDS AT THIS TIME. WILL CPOC. CL IN REACH, BED IN LOW, SR UP X2.
--- NOTE | 2018-11-15 21:45 | NUR ---
PT C/O R/L ARM PAIN, STATES IT IS A 05/21. PO PERCOCET GIVEN ALONGSIDE OTHER MEDS. WILL CTM. CL IN REACH, BED IN LOW, SR UP X2.
[2018-11-16] VITALS: BP 108/60
--- NOTE | 2018-11-16 02:06 | NUR ---
I have reviewed this patient and I concur with the Shift Assessment completed by the Licensed Practical Nurse today this shift.
[2018-11-16 04:00] VITALS: BP 110/64
--- NOTE | 2018-11-16 04:47 | NUR ---
PT CONVERTED ON THE TELE SINUS FROM UNCONTROLLED A-FIB. PT STATES VOICED "I AM READY TO GO, I AM TIRED OF STAYING IN THE HOSPITAL, THIS AIN'T LIFE. PROVIDED COMFORT CARE AND ADMINISTER PERCOCET PER PT REQUEST. PT STATES PAIN 05/21. WILL CTM. CL IN REACH, BED IN LOW, SR UP X2.
[2018-11-16 05:14] LABS: BASOPHILS 0.8 % (0-2); EOSINOPHILS 2.2 % (0-7); HEMOGLOBIN 10.7 g/dL (12-16); IMMATURE GRANULOCYTES 7.3 % (0-5); LYMPHOCYTES 12.1 % (15-50); MCH 26.2 pg (26.0-34.0); MCHC 30.6 g/dL (31.0-37.0); MEAN PLATELET VOLUME 10.1 fL (7.4-10.4); NEUTROPHILS 71.6 % (40-80); RBC 4.08 10x6/uL (4.00-5.40); RDW 15.7 % (11.5-14.5); WBC 15.2 10x3/uL (4.8-10.8)
[2018-11-16 05:17] LABS: MCV 85.8 fL (80.0-100.0); PLATELET COUNT 207 10x3/uL (130-400)
[2018-11-16 05:35] LABS: ALBUMIN 1.6 g/dL (3.4-5.0); ANION GAP 8.9 mmol/L (8-16); BILIRUBIN - TOTAL 0.24 mg/dL (0.2-1.3); CALCIUM 8.7 mg/dL (8.5-10.1); CARBON DIOXIDE 26.6 mmol/L (21.0-32.0); CREATININE - SERUM 1.1 mg/dL (0.6-1.3); POTASSIUM - SERUM 4.5 mmol/L (3.5-5.1); PROTEIN - SERUM 6.7 g/dL (6.4-8.2)
[2018-11-16 08:20] VITALS: BP 110/60
--- NOTE | 2018-11-16 08:21 | NUR ---
PT AWAKE AND ORIENTED. COMPLAINTS OF EVERYTHING. QUESTIONS ANSWERED BEST I WAS ABLE. CL IN REACH. SRX2.
[2018-11-16 12:10] VITALS: BP 113/63
--- NOTE | 2018-11-16 14:46 | NUR ---
I have reviewed this patient and I concur with the Shift Assessment completed by the Licensed Practical Nurse today this shift.
[2018-11-16 14:52] VITALS: BP 118/66
--- NOTE | 2018-11-16 16:57 | NUR ---
PREFORMED DAILY DRESSSING AND BED CHANGE. PT TOLERATED BETTER TAHN YESTERDAY.
--- NOTE | 2018-11-16 17:51 | NUR ---
PT LYING IN BED, BED CAHNGE/DRESSING CHANGED COMPLETED AT EARLIER DOCUMENTATION TIME. C/O PAIN, NOT TIME FOR ANOTHER PAIN MEDICATION YET. PT HAD EARLIER STATED SHE WAS READY TO WORK WITH PHYSICAL THERAPY SHE "LONGS TO BE ABLE TO WALK AGAIN". I PUT IN ANOTHER PHYCIAL THERAPY CONSULT, THEY WENT IN AND TRIED AND SHE REFUSED, STATING SHE WUOLD RATHER DO IT TOMORROW. PTS WOUNDS ARE EXTENSIVE BUT DO APPEAR TO BE OOSING LESS THAT THE PREVIOUS DAYS I'VE HAD HER. CL IN REACH, SRX2, DRAPES ON BED.
--- NOTE | 2018-11-16 19:41 | NUR ---
EVENING ROUNDS COMPLETED. REPORT RECEIVED. PT SITTING UP IN BED WITH EYES OPEN, RR EVEN AND UNLABORED. 82 SR ON TELEMETRY. BED IN LOW POSITION. NO S/S OF DISTRESS NOTED. INTRODUCED SELF TO PT. PT DENIES FURTHER NEEDS AT THIS TIME. CALL LIGHT IN REACH. WILL CTM.
[2018-11-16 20:30] VITALS: BP 112/73
[2018-11-17 00:54] VITALS: BP 96/64
--- NOTE | 2018-11-17 03:59 | NUR ---
NEW DRESSING APPLIED TO LEFT ARM, CLEANSED AND DRESSED. PATIENT HAD NO OTHER NEEDS.
--- NOTE | 2018-11-17 04:41 | NUR ---
I have reviewed this patient and I concur with the Shift Assessment completed by the Licensed Practical Nurse today this shift.
[2018-11-17 05:41] VITALS: BP 142/56
[2018-11-17 07:14] LABS: BASOPHILS 0.2 % (0-2); EOSINOPHILS 2.2 % (0-7); HEMATOCRIT 30.5 % (36.0-48.0); HEMOGLOBIN 9.8 g/dL (12-16); IMMATURE GRANULOCYTES 4.1 % (0-5); LYMPHOCYTES 12.2 % (15-50); MCH 26.8 pg (26.0-34.0); MCHC 32.1 g/dL (31.0-37.0); MEAN PLATELET VOLUME 8.9 fL (7.4-10.4); NEUTROPHILS 76.3 % (40-80); RBC 3.66 10x6/uL (4.00-5.40); RDW 15.3 % (11.5-14.5); WBC 15.4 10x3/uL (4.8-10.8)
[2018-11-17 07:20] LABS: MCV 83.3 fL (80.0-100.0); PLATELET COUNT 263 10x3/uL (130-400)
[2018-11-17 07:25] LABS: ALBUMIN 1.6 g/dL (3.4-5.0); ANION GAP 10.6 mmol/L (8-16); BILIRUBIN - TOTAL 0.2 mg/dL (0.2-1.3); CALCIUM 8.6 mg/dL (8.5-10.1); CARBON DIOXIDE 26.9 mmol/L (21.0-32.0); POTASSIUM - SERUM 4.5 mmol/L (3.5-5.1); PROTEIN - SERUM 6.7 g/dL (6.4-8.2)
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
[2018-11-17 08:18] VITALS: BP 98/58
[2018-11-17 13:08] VITALS: BP 162/69
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
--- NOTE | 2018-11-17 19:40 | NUR ---
PATIENT ALERT AND ORIENTED. RESPIRATIONS ARE EVEN AND UNLABORED. NO S/S OF DISTRESS. NO C/O PAIN. CALL LIGHT WITHIN REACH. WILL CPOC.
[2018-11-17 21:33] VITALS: BP 93/47
[2018-11-18] VITALS (7 sets, daily range): BP systolic 92–178; BP diastolic 51–65
--- NOTE | 2018-11-18 03:38 | NUR ---
PATIENT RESTING COMFORTABLY IN BED. RESPIRATIONS ARE EVEN AND UNLABORED. NO S/S OF DISTRESS. NO C/O PAIN. CALL LIGHT WITHIN REACH. WILL CPOC.
[2018-11-18 05:29] LABS: BASOPHILS 0.2 % (0-2); EOSINOPHILS 3.2 % (0-7); HEMATOCRIT 29.6 % (36.0-48.0); HEMOGLOBIN 9.3 g/dL (12-16); IMMATURE GRANULOCYTES 2.6 % (0-5); MCH 26.5 pg (26.0-34.0); MCHC 31.4 g/dL (31.0-37.0); MCV 84.3 fL (80.0-100.0); MEAN PLATELET VOLUME 9.1 fL (7.4-10.4); MONOCYTES 4.9 % (2-11); NEUTROPHILS 76.1 % (40-80); PLATELET COUNT 242 10x3/uL (130-400); RBC 3.51 10x6/uL (4.00-5.40); RDW 15.2 % (11.5-14.5); WBC 12.9 10x3/uL (4.8-10.8)
[2018-11-18 06:27] LABS: ALBUMIN 1.6 g/dL (3.4-5.0); ANION GAP 11.4 mmol/L (8-16); BILIRUBIN - TOTAL 0.19 mg/dL (0.2-1.3); CALCIUM 8.3 mg/dL (8.5-10.1); CARBON DIOXIDE 26.1 mmol/L (21.0-32.0); POTASSIUM - SERUM 4.5 mmol/L (3.5-5.1); PROTEIN - SERUM 6.2 g/dL (6.4-8.2)
--- NOTE | 2018-11-18 06:27 | NUR ---
DRESSING CHANGE ON BILATERAL ARMS COMPLETE.
--- NOTE | 2018-11-18 10:04 | NUR ---
PT LAYING IN BED MESSING WITH HER FINGER NAIL. PT WANTED ME TO PULL HER FINGER NAIL OFF. INFORMED PT THAT I COULDNT DO THAT BECAUSE SHE WAS A DIABETIC. PT ASK ME TO REMOVED TAPE ON FINGER, AFTER DOING SO SHE ASKED ME TO REWRAP HER FINGER WITH TAPE. VITALS STABLE. TOOK MEDS WIHTOUT DIFFICULTY. C/O PAIN IN BACK AND ARMS PERCOCET GIVEN. STATES SHE WANTS HER LIGHTS OFF, HEAT ON, NO LUNCH, AND A 4-8 HR NAP. DRSG TO L AND R ARM. AMPUTATION TO R GREAT TOE. NO FURTHER CONCERNS AT THIS TIME. WILL CPOC.
--- NOTE | 2018-11-18 10:52 | NUR ---
IN AND OUT CATH DONE TO COLLECT UA. SENT TO LAB.
--- NOTE | 2018-11-18 13:22 | NUR ---
PT REFUSED LUNCH. LAYING IN BED SLEEPING. NO FURTHER CONCERNS AT THIS TIME.
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
--- NOTE | 2018-11-18 14:43 | NUR ---
I have reviewed this patient and I concur with the Shift Assessment completed by the Licensed Practical Nurse today this shift.
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
--- NOTE | 2018-11-18 15:19 | NUR ---
Nutrition Follow Up: Diabetic diet with 50,25,40% intake of meals on 11/16 BG 173,143 today Weight 303lb-stable Noted awaiting placement Attempted to visit with pt however pt is sleeping RD following
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
--- NOTE | 2018-11-18 19:30 | NUR ---
ALERT/AWAKE WATCHING TV. DENIES PAIN OR ANY NEEDS. 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 DRSG'S ON BOTH ARMS C/D/I. TELEMETRY SHOWS 80 CAFIB. ORIENTED TO CALL LIGHT FOR ANY NEEDS.
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
--- NOTE | 2018-11-19 02:33 | NUR ---
[employer]ANING FOR INCONTIENCE OF URINE.
[2018-11-19 04:09] VITALS: BP 85/49
--- NOTE | 2018-11-19 06:30 | NUR ---
CHANGED DRSG'S TO RT/LT ARMS AND LT BREAST WITH ADAPTIC STRIPS, WRAPPED WITH KERLIX.
[2018-11-19 06:56] LABS: BASOPHILS 0.2 % (0-2); EOSINOPHILS 4.5 % (0-7); HEMATOCRIT 31.2 % (36.0-48.0); HEMOGLOBIN 9.9 g/dL (12-16); IMMATURE GRANULOCYTES 1.8 % (0-5); MCH 26.5 pg (26.0-34.0); MCHC 31.7 g/dL (31.0-37.0); MCV 83.4 fL (80.0-100.0); MEAN PLATELET VOLUME 8.8 fL (7.4-10.4); MONOCYTES 6.2 % (2-11); NEUTROPHILS 71.3 % (40-80); PLATELET COUNT 236 10x3/uL (130-400); RBC 3.74 10x6/uL (4.00-5.40); RDW 15.3 % (11.5-14.5)
[2018-11-19 06:59] LABS: WBC 9.2 10x3/uL (4.8-10.8)
[2018-11-19 07:35] LABS: ALBUMIN 1.7 g/dL (3.4-5.0); ALKALINE PHOSPHATASE 85 U/L (46-116); ALT (SGPT) 10 U/L (10-68); BILIRUBIN - TOTAL 0.27 mg/dL (0.2-1.3); CALC OSMOLALITY 266 mosm/kg (275-300); CALCIUM 8.4 mg/dL (8.5-10.1); CARBON DIOXIDE 25.1 mmol/L (21.0-32.0); CHLORIDE - SERUM 98 mmol/L (98-107); CREATININE - SERUM 0.8 mg/dL (0.6-1.3); GLUCOSE 144 mg/dL (74-106); POTASSIUM - SERUM 4.3 mmol/L (3.5-5.1); PROTEIN - SERUM 6.6 g/dL (6.4-8.2); SODIUM 131 mmol/L (136-145); eGFR NON AFRICAN AMERICAN 76 mL/min (90-120)
[2018-11-19 07:37] LABS: UREA NITROGEN 14 mg/dL (7-18)
--- NOTE | 2018-11-19 08:05 | NUR ---
PATIENT REQUESTING PAIN MEDICATION. PAIN MEDICATION GIVEN PER OCT.
[2018-11-19 09:45] VITALS: BP 144/60
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
[2018-11-19 15:52] VITALS: BP 130/73
--- NOTE | 2018-11-19 19:45 | NUR ---
PATIENT LAYING IN BED. NO DISTRESS NOTED. NO COMPLAINTS AT THIS TIME.
[2018-11-19 21:53] VITALS: BP 106/61
[2018-11-20] VITALS: BP 101/80
--- NOTE | 2018-11-20 02:45 | NUR ---
PATIENT LAYING IN BED. EYES CLOSED, CHEST RISING AND FALLING. NO DISTRESS NOTED.
--- NOTE | 2018-11-20 03:02 | NUR ---
I have reviewed this patient and I concur with the Shift Assessment completed by the Licensed Practical Nurse today this shift.
[2018-11-20 05:47] VITALS: BP 101/63
[2018-11-20 10:02] VITALS: BP 118/76
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
[2018-11-20 15:34] VITALS: BP 139/78
--- NOTE | 2018-11-20 19:57 | NUR ---
RESUMING PT CARE. PT IS ALERT LAYING IN BED. NO C/O VOICED. RESPIRATIONS EVEN AND UNLABORED. NO S/S OF DISTRESS NOTED. BED IN LOW POSITION WITH CALL LIGHT IN REACH. SIDE RAILS UP X 2. WILL CONTINUE TO MONITOR PT AND FOLLOW PLAN OF CARE.
[2018-11-20 20:00] VITALS: BP 97/73
[2018-11-21] VITALS (7 sets, daily range): BP systolic 118–151; BP diastolic 56–90
--- NOTE | 2018-11-21 04:42 | NUR ---
I have reviewed this patient and I concur with the Shift Assessment completed by the Licensed Practical Nurse today this shift.
--- NOTE | 2018-11-21 07:28 | NUR ---
REPORT RECEIVED. WILL CONTINUE WITH POC. PT CURRENTLY LYING SUPINE. CALL LIGHT W/I REACH. PT IS AAO AND BEDFAST. RR EVEN AND UNLABORED ON RA. NO PIV NOTED. NO S/S OF DISTRESS NOTED. PT DENIES ANY NEEDS AT THIS TIME. WILL CTM.
[2018-11-21 07:49] LABS: BASOPHILS 0.6 % (0-2); EOSINOPHILS 4.9 % (0-7); HEMATOCRIT 31.7 % (36.0-48.0); HEMOGLOBIN 10.3 g/dL (12-16); IMMATURE GRANULOCYTES 0.6 % (0-5); LYMPHOCYTES 26.6 % (15-50); MCH 26.6 pg (26.0-34.0); MCHC 32.5 g/dL (31.0-37.0); MCV 81.9 fL (80.0-100.0); MEAN PLATELET VOLUME 8.3 fL (7.4-10.4); MONOCYTES 6.6 % (2-11); NEUTROPHILS 60.7 % (40-80); PLATELET COUNT 224 10x3/uL (130-400); RBC 3.87 10x6/uL (4.00-5.40); RDW 14.9 % (11.5-14.5); WBC 7.8 10x3/uL (4.8-10.8)
[2018-11-21 08:07] LABS: CALC OSMOLALITY 270 mosm/kg (275-300); CALCIUM 8.6 mg/dL (8.5-10.1); CARBON DIOXIDE 28.3 mmol/L (21.0-32.0); CHLORIDE - SERUM 101 mmol/L (98-107); CREATININE - SERUM 0.8 mg/dL (0.6-1.3); GLUCOSE 128 mg/dL (74-106); POTASSIUM - SERUM 3.9 mmol/L (3.5-5.1); SODIUM 135 mmol/L (136-145); UREA NITROGEN 11 mg/dL (7-18); eGFR NON AFRICAN AMERICAN 76 mL/min (90-120)
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
--- NOTE | 2018-11-21 14:44 | NUR ---
I have reviewed this patient and I concur with the Shift Assessment completed by the Licensed Practical Nurse today this shift.
--- NOTE | 2018-11-21 15:07 | NUR ---
CHANGED RIGHT ARM, LEFT ARM, AND LEFT FLANK DRESSING. IRRIGATED WITH SALINE SOLUTION, APPLIED ABSORBANT GAUZE AND KERLEX AND ABD PAD. PT TOLERATED WELL. WILL CTM.
--- NOTE | 2018-11-21 16:43 | NUR ---
PT CURRENTLY LYING SEMI FOWLERS. CALL LIGHT W/I REACH. PT IS RESTING AT THE MOMENT. RR EVEN AND UNLABORED ON RA. NO S/S OF DISTRESS NOTED. WILL CTM.
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
--- NOTE | 2018-11-21 19:55 | NUR ---
RESUMING PT CARE. PT LAYING IN BED WITH EYES CLOSED RESTING COMFORTABLY. NO S/S OF DISTRESS NOTED. BED IN LOW POSITION WITH CALL LIGHT IN REACH. WILL CONTINUE TO MONITOR PT AND FOLLOW PLAN OF CARE.
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
[2018-11-22 08:14] VITALS: BP 168/90
--- NOTE | 2018-11-22 11:31 | NUR ---
PATIENT SCREAMING TO THE TOP OF HER LUNGS THAT SHE WANTS HER FAN OFF. PATIET HAS BEEN ON THE CALL LIGHT EVERY 30-45 MINUTES HAVING SOMEONE COME INTO HER ROOM TO ASK QUESTIONS LIKE"IS IS DAYTIME", OR TURN FAN OFF THEN TURN FAN ON. BEHAVIOR IS INAPPROPRIATE AND PATIENT SCREAMING IS BOTHERING OTHER PATIENTS ON THE UNIT.
[2018-11-22 11:53] VITALS: BP 143/76
--- NOTE | 2018-11-22 13:50 | NUR ---
MEDICATED FOR PAIN PRIOR TO DRESSING CHANGE. PATIENT IS PICKING DRESSINGS OFF!
--- NOTE | 2018-11-22 14:30 | NUR ---
DERESSING CHANGES COMPLETE AT THIS TIME. INCONTINENT CARES PROVIDED TO PATIENT.
[2018-11-22 15:56] VITALS: BP 165/75
--- NOTE | 2018-11-22 16:22 | NUR ---
FSBS 183. 4 UNITS HUMALOG ADMINISTERED PER SLIDING SCALE. NO DISTRESS.
--- NOTE | 2018-11-22 18:42 | NUR ---
PATIENTS NEPHEW AT BEDSIDE FOR A VISIT. PATIENTS NEPHEW REQUESTING IF POSSIBLE TO HAVE PATIENT MOVED TO A FACILITY CLOSER TO [place] BECAUSE THAT IS WHERE HE LIVES. PATIENT IN NO DISTRESS. RESP EVEN AND UNLABORED. CALL LIGHT WITHIN REACH.
[2018-11-22 20:28] VITALS: BP 180/66
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
[2018-11-23] VITALS (7 sets, daily range): BP systolic 115–190; BP diastolic 67–92
--- NOTE | 2018-11-23 01:08 | NUR ---
PERCOCET 10 PO GIVEN FOR C/O BILAT ARM PAIN. CALL LIGHT WITHIN REACH.
--- NOTE | 2018-11-23 02:52 | NUR ---
PT RESTING WITH EYES CLOSED. RESP EVEN AND REGULAR. SRUP X2, CALL LIGHT WITHIN REACH.
[2018-11-23 05:15] LABS: BASOPHILS 0.2 % (0-2); EOSINOPHILS 5.8 % (0-7); HEMATOCRIT 31.8 % (36.0-48.0); HEMOGLOBIN 10.6 g/dL (12-16); IMMATURE GRANULOCYTES 0.3 % (0-5); LYMPHOCYTES 33.5 % (15-50); MCH 27.2 pg (26.0-34.0); MCHC 33.3 g/dL (31.0-37.0); MCV 81.7 fL (80.0-100.0); MEAN PLATELET VOLUME 8.4 fL (7.4-10.4); MONOCYTES 7.6 % (2-11); NEUTROPHILS 52.6 % (40-80); PLATELET COUNT 222 10x3/uL (130-400); RBC 3.89 10x6/uL (4.00-5.40); RDW 14.8 % (11.5-14.5); WBC 6.2 10x3/uL (4.8-10.8)
[2018-11-23 05:29] LABS: CALC OSMOLALITY 274 mosm/kg (275-300); CALCIUM 8.4 mg/dL (8.5-10.1); CARBON DIOXIDE 27.1 mmol/L (21.0-32.0); CHLORIDE - SERUM 103 mmol/L (98-107); CREATININE - SERUM 0.8 mg/dL (0.6-1.3); GLUCOSE 143 mg/dL (74-106); POTASSIUM - SERUM 4.1 mmol/L (3.5-5.1); SODIUM 137 mmol/L (136-145); UREA NITROGEN 11 mg/dL (7-18); eGFR NON AFRICAN AMERICAN 76 mL/min (90-120)
--- NOTE | 2018-11-23 05:52 | NUR ---
PT INCONTINENT OF URINE. INCONTINENT CARE DONE. NEW MEPILEX APPLIED TO COCCYX. SR UP X2, CALL LIGHT WITHIN REACH.
--- NOTE | 2018-11-23 06:46 | NUR ---
AM FSFBS 143. NO COVERAGE NEEDED. PT RESTED WELL AFTER PERCOCET ADMINISTRATION. NEEDS MET; WILL CONTINUE TO MONITOR.
--- NOTE | 2018-11-23 13:58 | NUR ---
ALERT AND ORIENTED X4. SITTING UP IN BED. BED BATH AND LINEN CHANGE COMPLETE. BILATERAL UPPER EXTREMITY DRESSING CHANGE ORDERED. LT AXILLARY DRESSING CLEANED AND REDRESSED. CONTINUE PAIN MANAGEMENT. SINUS RHYTHM 83 ON TELEMETRY. CONTINUE PLAN OF CARE AND SAFETY PRECAUTIONS.
--- NOTE | 2018-11-23 19:43 | NUR ---
EVENING ROUNDS COMPLETED. REPORT RECEIVED. PT SITTING UP IN BED WITH EYES CLOSED, RR EVEN AND UNLABORED. BED IN LOW POSITION. NO S/S OF DISTRESS NOTED. INTRODUCED SELF TO PT. PT DENIES FURTHER NEEDS AT THIS TIME. CALL LIGHT IN REACH. WILL CTM.
--- NOTE | 2018-11-24 03:08 | NUR ---
I have reviewed this patient and I concur with the Shift Assessment completed by the Licensed Practical Nurse today this shift.
[2018-11-24 05:49] VITALS: BP 134/59
--- NOTE | 2018-11-24 07:30 | NUR ---
PT LYING IN BED. EYES CLOSED. CHEST RISING AND FALLING. ROOM AIR. NO IV. CONTACT ISOLATION. BED LOW. CL IN REACH. WILL CONTINUE WITH PLAN OF CARE.
[2018-11-24 09:01] VITALS: BP 134/68
[2018-11-24 11:53] VITALS: BP 123/70
--- NOTE | 2018-11-24 12:21 | NUR ---
I have reviewed this patient and I concur with the Shift Assessment completed by the Licensed Practical Nurse today this shift.
--- NOTE | 2018-11-24 13:33 | NUR ---
PRN PERCOCET GIVEN 30 MINUTES BEFORE DRESSING CHANGE. PT IN LYING IN BED. HAS NO FURTHER NEEDS AT THIS TIME. BED LOW. CL IN REACH.
--- NOTE | 2018-11-24 14:41 | NUR ---
CALLED [facility] FOR SURGICAL DRAPE AGAIN THEY STATED THEY ARE GOING TO BRING IT THEY ARE IN ICU RIGHT NOW.
--- NOTE | 2018-11-24 15:41 | NUR ---
DRESSING CHANGES DONE PER ORDER. PT RECEIVED BED BATH BY CHRISTA AND THIS NURSE AND COMPLETE BED CHANGE DONE.
[2018-11-24 18:09] VITALS: BP 131/62
--- NOTE | 2018-11-24 19:30 | NUR ---
AROUSES WITH SPEACH AND ANSWERS QUESTIONS APROPRIATELY. BED IS LOW AND LOCKED CALL LIGHT IN REACH.LUNGS DEMINISHED SKIN WARM AND DRY ...DRSG ARE IN PLACE UNDER BOTH ARM PITS AND RT ARM...DENIES NEEDS AT THIS TIME
[2018-11-24 20:32] VITALS: BP 103/67
--- NOTE | 2018-11-25 01:40 | NUR ---
WENT TO GIVE PATIENT PERCOCET AND FOUND PT WITH EYES CLOSED IF ASLEEP AND SNORING...WILL HOLD TELL AWAKE
--- NOTE | 2018-11-25 02:56 | NUR ---
CONTINUES TO REST IF ASLEEP SO PERCOCET RETURNED TO BIN
--- NOTE | 2018-11-25 03:11 | NUR ---
I have reviewed this patient and I concur with the Shift Assessment completed by the Licensed Practical Nurse today this shift.
--- NOTE | 2018-11-25 03:40 | NUR ---
PT AWOKE AND ASKED FOR PAIN MED...HYDROCODONE GIVEN
[2018-11-25 06:08] VITALS: BP 134/73
[2018-11-25 06:27] LABS: BASOPHILS 0.6 % (0-2); EOSINOPHILS 6.7 % (0-7); HEMATOCRIT 31.9 % (36.0-48.0); HEMOGLOBIN 10.2 g/dL (12-16); IMMATURE GRANULOCYTES 0.2 % (0-5); LYMPHOCYTES 33.6 % (15-50); MCH 26.7 pg (26.0-34.0); MCV 83.5 fL (80.0-100.0); MEAN PLATELET VOLUME 8.6 fL (7.4-10.4); MONOCYTES 7.5 % (2-11); NEUTROPHILS 51.4 % (40-80); PLATELET COUNT 238 10x3/uL (130-400); RBC 3.82 10x6/uL (4.00-5.40); RDW 14.9 % (11.5-14.5); WBC 6.3 10x3/uL (4.8-10.8)
[2018-11-25 06:36] LABS: ALKALINE PHOSPHATASE 68 U/L (46-116); ALT (SGPT) 15 U/L (10-68); CALC OSMOLALITY 276 mosm/kg (275-300); CALCIUM 8.5 mg/dL (8.5-10.1); CARBON DIOXIDE 28.2 mmol/L (21.0-32.0); CHLORIDE - SERUM 103 mmol/L (98-107); CREATININE - SERUM 0.7 mg/dL (0.6-1.3); GLUCOSE 130 mg/dL (74-106); PROTEIN - SERUM 6.4 g/dL (6.4-8.2); SODIUM 138 mmol/L (136-145); UREA NITROGEN 9 mg/dL (7-18); eGFR NON AFRICAN AMERICAN 88 mL/min (90-120)
[2018-11-25 10:25] VITALS: BP 109/59
--- NOTE | 2018-11-25 13:41 | NUR ---
Nutrition follow-up: Diet: ADA consistent CHO PO Intake ~72% average of last 9 meals; po intake improved Labs reviewed; glucose under much better control +BM Wt: 297# RDN following.
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
--- NOTE | 2018-11-25 16:30 | NUR ---
ALERT AND ORIENTED X4. BED BATH AND LINEN CHANGE. RT ARM AND LT BREAST DRESSING CHANGE. NO IV. DISCHARGE INSTRUCTIONS GIVEN VERBALLY AND WRITTEN TO PATIENT AND POA. DISCHARGE INSTRUCTIONS SIGNED ON CHART. [facility] CALLED SPOKE WITH [facility] FOR TRANSPORT. CONTINUE PLAN OF CARE AND SAFETY PRECAUTIONS.
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
== END 2018-11-25 18:37 | disposition home or self-care (01) | DRG 872 ==
LOC: D.ER 18:11 → D.M2 21:00 → D.EDHOLD 21:00 → D.M2 21:24
PROVIDERS: Emergency Medicine; Family Medicine; ADMIT Internal Medicine Nephrology; ATTEND Internal Medicine Nephrology
DX: A41.9 Sepsis, unspecified organism (principal); L03.113 Cellulitis of right upper limb; N39.0 Urinary tract infection, site not specified; E87.1 Hypo-osmolality and hyponatremia; F17.213 Nicotine dependence, cigarettes, with withdrawal; N17.9 Acute kidney failure, unspecified; E11.628 Type 2 diabetes mellitus with other skin complications; A46 Erysipelas; B37.2 Candidiasis of skin and nail; D64.9 Anemia, unspecified; E83.42 Hypomagnesemia; E11.9 Type 2 diabetes mellitus without complications; I10 Essential (primary) hypertension; Z91.19 Patient's noncompliance with other medical treatment and regimen; L40.9 Psoriasis, unspecified; F32.9 Major depressive disorder, single episode, unspecified; F20.9 Schizophrenia, unspecified; E11.65 Type 2 diabetes mellitus with hyperglycemia